=== PATIENT | male | born 1935 | race Caucasian/White ===

== ENCOUNTER 2020-07-23 15:00 | Inpatient (IN) | payer OTHER ==
[2020-07-23] MEDS ORDERED: DEXTROSE 5% IN WATER 100 ML with AMIODARONE 150 MG IV STA ×2 (15:13→15:47)
[2020-07-23] MEDS ORDERED: SODIUM CHLORIDE 0.9% 1,000 ML IV STA (15:17)
--- NOTE | 2020-07-23 15:20 | ED ---
General Adult HPI - General Chief complaint: Arrhythmia/Palpitations Stated complaint: Arrhythmia Time Seen by Provider: 07/23/20 15:05 Source: patient, EMS, RN notes reviewed Mode of arrival: EMS Limitations: no limitations - History of Present Illness Initial comments: Patient is a pleasant 85-year-old male presenting to the emergency department with concern for arrhythmia. Patient was seen at [facility] however was a new patient there and they have no information on him. Patient states he feels fine and has no complaint. Patient is unclear why he went to the office today. He denies any chest pain or dyspnea. No palpitations. Patient not feel weak and fatigued. Patient is unclear. History of similar symptoms previously. Patient reportedly is on Coreg and Xarelto. - Related Data Home Medications Medication Instructions Recorded Confirmed Carvedilol [Coreg] 25 mg PO AC-BID 07/23/20 07/23/20 Rivaroxaban [Xarelto] 20 mg PO AC-SUPPER 07/23/20 07/23/20 Allergies Allergy/AdvReac Type Severity Reaction Status Date / Time Penicillins Allergy Unknown Verified 07/23/20 15:40 Childhood Review of Systems ROS Statement: Those systems with pertinent positive or pertinent negative responses have been documented in the HPI. ROS Other: All systems not noted in ROS Statement are negative. Constitutional: Denies: fever Eyes: Denies: eye pain ENT: Denies: ear pain Respiratory: Denies: cough, dyspnea Cardiovascular: Denies: chest pain, palpitations Endocrine: Denies: fatigue Gastrointestinal: Denies: abdominal pain Genitourinary: Denies: urgency Musculoskeletal: Denies: back pain Skin: Denies: rash Neurological: Denies: weakness Past Medical History Past Medical History: Diabetes Mellitus Additional Past Medical History / Comment(s): defibulator History of Any Multi-Drug Resistant Organisms: None Reported Past Surgical History: Appendectomy Past Psychological History: No Psychological Hx Reported Smoking Status: Never smoker Past Alcohol Use History: Rare Past Drug Use History: None Reported General Exam Limitations: no limitations General appearance: alert, in no apparent distress Head exam: Present: normocephalic Eye exam: Present: normal appearance Neck exam: Present: normal inspection Respiratory exam: Present: normal lung sounds bilaterally Cardiovascular Exam: Present: tachycardia Expanded Peripheral pulses: 2+: Radial (R), Radial (L), Dorsalis Pedis (R), Dorsalis Pedis (L) GI/Abdominal exam: Present: soft. Absent: tenderness Extremities exam: Present: normal inspection. 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 Blancas who agrees with plan 07/23/20 16:13 Heart rate 136. Patient stable. Nursing attempting to try to interrogate un known brand of device. 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 Case was also discussed with Dr. Alston who does recommend a dose of IV Lopressor. 07/23/20 17:26 Case also discussed with practitioner Leland, covering for Dr. Cohen, who will admit. EKG Findings - EKG Comments: EKG Findings:: Wide-complex tachycardia with a rate of 142. QRS 146. QT 350. QTC 538. Superior axis. Inferior Q waves. Appearance of right bundle-branch block. Nonspecific ST-T. Medical Decision Making - Medical Decision Making Patient reevaluated and still resting comfortably in bed without complaint. Heart rate 1:30. Blood pressure remains stable. Cardiology paged again for update. - Lab Data Result diagrams: 07/23/20 15:19 07/23/20 15:19 Lab Results 07/23/20 07/23/20 07/23/20 Range/Units 15:19 15:19 15:19 WBC 4.8 (3.8-10.6) k/uL RBC 4.13 L (4.30-5.90) m/uL Hgb 12.2 L (13.0-17.5) gm/dL Hct 36.3 L (39.0-53.0) % MCV 88.1 (80.0-100.0) fL MCH 29.4 (25.0-35.0) pg MCHC 33.4 (31.0-37.0) g/dL RDW 12.9 (11.5-15.5) % Plt Count 150 (150-450) k/uL MPV 7.7 Neutrophils % 69 % Lymphocytes % 21 % Monocytes % 6 % Eosinophils % 2 % Basophils % 1 % Neutrophils # 3.3 (1.3-7.7) k/uL Lymphocytes # 1.0 (1.0-4.8) k/uL Monocytes # 0.3 (0-1.0) k/uL Eosinophils # 0.1 (0-0.7) k/uL Basophils # 0.0 (0-0.2) k/uL PT 11.7 (9.0-12.0) sec INR 1.1 (<1.2) APTT 29.1 (22.0-30.0) sec Sodium 139 (137-145) mmol/L Potassium 4.5 (3.5-5.1) mmol/L Chloride 106 (98-107) mmol/L Carbon Dioxide 27 (22-30) mmol/L Anion Gap 6 mmol/L BUN 26 H (9-20) mg/dL Creatinine 1.06 (0.66-1.25) mg/dL Est GFR (CKD-EPI)AfAm 74 (>60 ml/min/1.73 sqM) Est GFR (CKD-EPI)NonAf 64 (>60 ml/min/1.73 sqM) Glucose 191 H (74-99) mg/dL Calcium 10.2 (8.4-10.2) mg/dL Magnesium 2.0 (1.6-2.3) mg/dL Total Bilirubin 0.8 (0.2-1.3) mg/dL AST 23 (17-59) U/L ALT 10 (4-49) U/L Alkaline Phosphatase 69 (38-126) U/L Creatine Kinase 54 L (55-170) U/L Troponin I (0.000-0.034) ng/mL Total Protein 7.0 (6.3-8.2) g/dL Albumin 4.0 (3.5-5.0) g/dL TSH 3.170 (0.465-4.680) mIU/L Free T4 1.44 (0.78-2.19) ng/dL Free T3 pg/mL 3.4 (2.8-5.3) pg/ml 07/23/20 Range/Units 15:19 WBC (3.8-10.6) k/uL RBC (4.30-5.90) m/uL Hgb (13.0-17.5) gm/dL Hct (39.0-53.0) % MCV (80.0-100.0) fL MCH (25.0-35.0) pg MCHC (31.0-37.0) g/dL RDW (11.5-15.5) % Plt Count (150-450) k/uL MPV Neutrophils % % Lymphocytes % % Monocytes % % Eosinophils % % Basophils % % Neutrophils # (1.3-7.7) k/uL Lymphocytes # (1.0-4.8) k/uL Monocytes # (0-1.0) k/uL Eosinophils # (0-0.7) k/uL Basophils # (0-0.2) k/uL PT (9.0-12.0) sec INR (<1.2) APTT (22.0-30.0) sec Sodium (137-145) mmol/L Potassium (3.5-5.1) mmol/L Chloride (98-107) mmol/L Carbon Dioxide (22-30) mmol/L Anion Gap mmol/L BUN (9-20) mg/dL Creatinine (0.66-1.25) mg/dL Est GFR (CKD-EPI)AfAm (>60 ml/min/1.73 sqM) Est GFR (CKD-EPI)NonAf (>60 ml/min/1.73 sqM) Glucose (74-99) mg/dL Calcium (8.4-10.2) mg/dL Magnesium (1.6-2.3) mg/dL Total Bilirubin (0.2-1.3) mg/dL AST (17-59) U/L ALT (4-49) U/L Alkaline Phosphatase (38-126) U/L Creatine Kinase (55-170) U/L Troponin I 0.013 (0.000-0.034) ng/mL Total Protein (6.3-8.2) g/dL Albumin (3.5-5.0) g/dL TSH (0.465-4.680) mIU/L Free T4 (0.78-2.19) ng/dL Free T3 pg/mL (2.8-5.3) pg/ml - Radiology Data Radiology results: image reviewed (Chest x-ray shows cardiac megaly. No edema or effusion. Previous sternotomy and cardiac device present.) Critical Care Time Critical Care Time: Yes Total Critical Care Time: 33 Disposition Clinical Impression: Wide-complex tachycardia Disposition: ADMITTED IP TO THIS HOSP Is patient prescribed a controlled substance at d/c from ED?: No Referrals: [facility],Clinic [Primary Care Provider] - 1-2 days Decision Time: 17:28
[2020-07-23 15:26] LABS: Basophils % (A) 1 %; Eosinophils # (A) 0.1 k/uL (0-0.7); Eosinophils % (A) 2 %; HCT 36.3 % (39.0-53.0); HGB 12.2 gm/dL (13.0-17.5); Lymphocytes % (A) 21 %; MCH 29.4 pg (25.0-35.0); MCHC 33.4 g/dL (31.0-37.0); MCV 88.1 fL (80.0-100.0); Mean Platelet Volume 7.7; Monocytes # (A) 0.3 k/uL (0-1.0); Monocytes % (A) 6 %; Neutrophils # (A) 3.3 k/uL (1.3-7.7); Neutrophils % (A) 69 %; Platelet Count 150 k/uL (150-450); RBC 4.13 m/uL (4.30-5.90); RDW 12.9 % (11.5-15.5); WBC 4.8 k/uL (3.8-10.6)
[2020-07-23 15:36] LABS: INR 1.1 (<1.2); Partial Thromboplastin Time 29.1 sec (22.0-30.0); Prothrombin Time 11.7 sec (9.0-12.0)
[2020-07-23 15:44] LABS: Calcium 10.2 mg/dL (8.4-10.2); Potassium 4.5 mmol/L (3.5-5.1); Total Bilirubin 0.8 mg/dL (0.2-1.3)
--- NOTE | 2020-07-23 15:57 | XR ---
EXAMINATION TYPE: XR chest 2V DATE OF EXAM: 07/23/2020 COMPARISON: 02/08/2013 HISTORY: 85-year-old male dysrhythmia and chest pain TECHNIQUE: AP and lateral views FINDINGS: Left anterior chest wall ICD generator with right ventricular lead. Median sternotomy wires and post- CABG clips in the mediastinum. Heart moderately enlarged. Rightward patient rotation alters the jewel l cardiomediastinal contours. No kristie consolidation or sizable effusion seen. Old healed left-sided rib fracture deformities. IMPRESSION: Moderate cardiomegaly. No kristie pulmonary edema or sizable effusion seen.
[2020-07-23 16:00] LABS: T4, Free (Free Thyroxine) 1.44 ng/dL (0.78-2.19)
[2020-07-23] MEDS ORDERED: AMIODARONE 360 MG in DEXTROSE 5% IN WATER 200 ML IV ONE ×2 (16:13)
[2020-07-23] MEDS ORDERED: METOPROLOL TARTRATE 5 MG/5 ML VIAL IVP STA (17:27)
[2020-07-23] MEDS ORDERED: NALOXONE 0.4 MG/ML 1 ML VIAL IV PRN (17:28)
--- NOTE | 2020-07-24 09:12 | P.HPIM ---
History of Present Illness This is a pleasant 85 years old male with past medical history of dementia, diabetes mellitus, he has history of permanent pacemaker placement, and defibrillator. Patient follow-up with Dr. Serrano in [place]. He was recently moved to [place] and lastly, he went to his the office for a checkup today and in the EKG his heart rate was recent. Pulse rate at his PCPs office was 148 and patient was advised to come to the hospital via ambulance. Patient himself is poor historian and cannot remember much except that he went to the doctor office. However he denies chest pain or dyspnea, no coughing, no dizziness. No change in bowel or urine habits. No fever. No other complaints On admission patient is tachycardic 142 blood pressure 113/90. Currently his heart rate is 126 and blood pressure 133/77, he is afebrile Labs including CBC, INR, BMP, liver enzymes are unremarkable. Troponins 3 are negative with 0.013, 0.013 and 0.017. TSH is normal at 3.1, free T4 is normal at 1.4 and a free T3 is normal at 3.4 EKG showing wide QRS tachycardia with right bundle branch block and QTC of 538 Chest x-ray: No acute process per radiologist On admission patient was started on amiodarone drip and given IV metoprolol 5 mg once,. Cardiology team were consulted from emergency room At home he wasn't Coreg 25 mg twice daily and Zestril to 20 mg daily at bedtime Review of Systems CONSTITUTIONAL: No fever, no malaise, no fatigue. HEENT: No recent visual problems or hearing problems. Denied any sore throat. CARDIOVASCULAR: No orthopnea, PND, no palpitations, no syncope. PULMONARY: No shortness of breath, no cough, no hemoptysis. GASTROINTESTINAL: No diarrhea, no nausea, no vomiting, no abdominal pain. Normoactive bowel sounds. NEUROLOGICAL: No headaches, no weakness, no numbness. HEMATOLOGICAL: Denies any bleeding or petechiae. GENITOURINARY: Denies any burning micturition, frequency, or urgency. MUSCULOSKELETAL/RHEUMATOLOGICAL: Denies any joint pain, swelling, or any muscle pain. ENDOCRINE: Denies any polyuria or polydipsia. Past Medical History Past Medical History: Dementia, Diabetes Mellitus Additional Past Medical History / Comment(s): Permenant pacemaker History of Any Multi-Drug Resistant Organisms: None Reported Past Surgical History: Appendectomy, Pacemaker Type of Cardiac Device: Permanent Pacemaker Device Placement Date:: 2009 Past Psychological History: No Psychological Hx Reported Smoking Status: Never smoker Past Alcohol Use History: Rare Past Drug Use History: None Reported - Past Family History Father History Unknown: Yes Mother History Unknown: Yes Brother(s) History Unknown: Yes Sister(s) History Unknown: Yes Medications and Allergies Home Medications Medication Instructions Recorded Confirmed Type Carvedilol [Coreg] 25 mg PO AC-BID 07/23/20 07/23/20 History Rivaroxaban [Xarelto] 20 mg PO AC-SUPPER 07/23/20 07/23/20 History Allergies Allergy/AdvReac Type Severity Reaction Status Date / Time Penicillins Allergy Unknown Verified 07/23/20 15:40 Childhood Physical Exam Vitals: Vital Signs Temp Pulse Pulse Resp BP BP Pulse Ox 07/24/20 04:53 98.1 F 126 H 16 133/77 98 07/24/20 04:51 126 H 16 07/23/20 23:46 97 F L 126 H 16 113/77 98 07/23/20 20:30 97.9 F 129 H 16 117/79 98 07/23/20 19:45 98.0 F 131 H 18 101/64 100 07/23/20 19:00 133 H 18 107/64 98 07/23/20 18:12 133 H 18 112/77 98 07/23/20 17:30 134 H 18 110/84 100 07/23/20 17:00 132 H 18 115/90 100 07/23/20 16:45 133 H 18 104/76 100 07/23/20 16:14 129 H 18 104/80 100 07/23/20 16:05 131 H 18 113/83 100 07/23/20 15:55 137 H 18 124/69 100 07/23/20 15:36 140 H 18 112/81 100 07/23/20 15:14 142 H 07/23/20 15:01 97.9 F 142 H 18 113/90 100 Intake and Output 07/23/20 07/24/20 07/24/20 22:59 06:59 14:59 Output Total 100 Balance -100 Output: Urine 100 Other: # Voids 0 Weight 83.915 kg 59 kg GENERAL: The patient is alert and oriented x3, not in any acute distress. Well developed, well nourished. HEENT: Pupils are round and equally reacting to light. EOMI. No scleral icterus. No conjunctival pallor. Normocephalic, atraumatic. No pharyngeal erythema. No thyromegaly. CARDIOVASCULAR: S1 and S2 present. No murmurs, rubs, or gallops. PULMONARY: Chest is clear to auscultation, no wheezing or crackles. ABDOMEN: Soft, nontender, nondistended, normoactive bowel sounds. No palpable organomegaly. MUSCULOSKELETAL: No joint swelling or deformity. EXTREMITIES: No cyanosis, clubbing, or pedal edema. NEUROLOGICAL: Gross neurological examination did not reveal any focal deficits. SKIN: No rashes. No petechiae Results CBC & Chem 7: 07/23/20 15:19 07/23/20 15:19 Labs: Abnormal Lab Results - Last 24 Hours (Table) 07/23/20 07/23/20 Range/Units 15:19 15:19 RBC 4.13 L (4.30-5.90) m/uL Hgb 12.2 L (13.0-17.5) gm/dL Hct 36.3 L (39.0-53.0) % BUN 26 H (9-20) mg/dL Glucose 191 H (74-99) mg/dL Creatine Kinase 54 L (55-170) U/L Thrombosis Risk Factor Assmnt - Choose All That Apply Each Factor Represents 1 point: Obesity (BMI >25) Each Risk Factor Represents 3 Points: Age 75 years or older Thrombosis Risk Factor Assessment Total Risk Factor Score: 4 Thrombosis Risk Factor Assessment Level: Moderate Risk Assessment and Plan Assessment: Wide complex tachycardia Prolonged QTC of 538 Dementia Diabetes mellitus Plan: This is a pleasant 85 years old male who presents with wide complex tachycardia. cardiology team on the case. Continue with amiodarone and beta rosaura as per cardiology team recommendation. Labs and medication were reviewed.. Continue same treatment. Continue with symptomatic treatment. Resume home medication. Monitor lytes and vitals. DVT and GI prophylaxis. Further recommendations depends on the clinical course of the patient DVT prophylaxis:Was on Xarelto GI Prophylaxis: Pepcid PT/OT: Pending Prognosis is guarded
[2020-07-24] MEDS: carvediloL 12.5 MG TAB PO SCH ×2 (09:42→17:08)
[2020-07-24] MEDS ORDERED: ADENOSINE 3 MG/ML 2 ML VIAL IVP STA ×2 (09:46)
[2020-07-24] MEDS: AMIODARONE 300 MG in DEXTROSE 5% IN WATER 250 ML IV SCH ×4 (10:10→10:14)
--- NOTE | 2020-07-24 11:59 | P.CRDCN ---
History of Present Illness Consult date: 07/24/20 History of present illness: CHIEF COMPLAINT: Wide-complex tachycardia HISTORY OF PRESENT ILLNESS: This is a 85-year old male with a past medical history significant for diabetes mellitus, dementia, and previous AICD insertion. Patient does not follow with a baker pie. We have been asked to see the patient in consultation for wide-complex tachycardia. Patient examined this morning at the bedside. Patient is unable to provide any medical history or provide any details of why he came to the hospital. This provider spoke with the patient's and also patient's [id number] in attempts to gain additional medical information. Patient's [id number], Marii, states she took the patient to the [facility] yesterday for a routine checkup. She states the patient was seen at a doctor's office in October of this year in [place] and was told he needed his pacemaker battery changed. An EKG was completed yesterday at the [facility] which revealed tachycardia with heart rate in the 140s and he was instructed to come to the hospital for further evaluation. Patient is prescribed Xarelto on an outpatient basis. The patient is unable to tell me why he is prescribed Xarelto and either is his family members. The patient denies chest pain or pressure. He denies shortness of breath. He denies palpitations. Denies dizziness or lightheadedness. DIAGNOSTICS: EKG reveals wide complex tachycardia. Heart rate 142. Right bundle-branch block. Chest xray moderate cardiomegaly. No kristie pulmonary edema or sizable effusion. Laboratory data: WBC 4.8. Hemoglobin 12.2. Pletal 150. Sodium 139. Potassium 4.5. BUN 26. Creatinine 1.06. Magnesium 2.0. Troponin negative 3. TSH 3.170. Current home cardiac medications include Xarelto 20 mg daily, Coreg 25 mg twice a day REVIEW OF SYSTEMS: At the time of my exam: CONSTITUTIONAL: Denies fever or chills. HEENT: Denies blurred vision, vision changes, or eye pain. Denies hemoptysis CARDIOVASCULAR: Denies chest pain, orthopnea, PND or palpitations RESPIRATORY: No shortness of breath. GASTROINTESTINAL: Denies abdominal pain. Denies nausea or vomiting. HEMATOLOGIC: Denies bleeding disorders. GENITOURINARY: Denies any blood in urine. SKIN: Denies pruitis. Denies rash. PHYSICAL EXAM: VITAL SIGNS: Reviewed. GENERAL: Well-developed in no acute distress. HEENT: Head is normocephalic. Pupils are equal, round. Sclerae anicteric. Mucous membranes of the mouth are moist. Neck supple. No JVD or thyromegaly LUNGS: Respirations even and unlabored. Lungs essentially clear to auscultation bilaterally. HEART: Tachycardic. Regular rate and rhythm. S1 and S2 heard. ABDOMEN: Soft. Nondistended. Nontender. EXTREMITIES: Normal range of motion. No clubbing or cyanosis. Peripheral pulses intact. No lower extremity edema NEUROLOGIC: Awake and alert. Oriented x 2. ASSESSMENT: Wide complex tachycardia, suspect venticular tachycardia History of AICD History of CABG: X-ray reveals median sternotomy wires and post CABG clips in the mediastinum On long-term anticoagulation with Xarelto, reason unknown Diabetes mellitus, type II Dementia PLAN: Obtain 2-D echo to assess cardiac structure and function Patient given 12mg rapid IVP at the bedside per Dr. Blancas. No change in telemetry tracings. Suspect sustained ventricular tachycardia. Continue IV amio Resume Coreg Hold Xarelto Dr. Blancas would like to overdrive pacer in attempts to convert patients rhythm. Spoke with device rep who will come out this afternoon and will call Dr. Blancas upon her arrival Further recommendations pending patient course Nurse practitioner note has been reviewed by physician. Signing provider agrees with the documented findings, assessment, and plan of care. Past Medical History Past Medical History: Dementia, Diabetes Mellitus Additional Past Medical History / Comment(s): Permenant pacemaker History of Any Multi-Drug Resistant Organisms: None Reported Past Surgical History: Appendectomy, Pacemaker Type of Cardiac Device: Permanent Pacemaker Device Placement Date:: 2009 Past Psychological History: No Psychological Hx Reported Smoking Status: Never smoker Past Alcohol Use History: Rare Past Drug Use History: None Reported - Past Family History Father History Unknown: Yes Mother History Unknown: Yes Brother(s) History Unknown: Yes Sister(s) History Unknown: Yes Medications and Allergies Home Medications Medication Instructions Recorded Confirmed Type Carvedilol [Coreg] 25 mg PO AC-BID 07/23/20 07/23/20 History Rivaroxaban [Xarelto] 20 mg PO AC-SUPPER 07/23/20 07/23/20 History Allergies Allergy/AdvReac Type Severity Reaction Status Date / Time Penicillins Allergy Unknown Verified 07/23/20 15:40 Childhood Physical Exam Vitals: Vital Signs Temp Pulse Pulse Resp BP BP Pulse Ox 07/24/20 09:40 97.4 F L 127 H 16 123/89 99 07/24/20 04:53 98.1 F 126 H 16 133/77 98 07/24/20 04:51 126 H 16 07/23/20 23:46 97 F L 126 H 16 113/77 98 07/23/20 20:30 97.9 F 129 H 16 117/79 98 07/23/20 19:45 98.0 F 131 H 18 101/64 100 07/23/20 19:00 133 H 18 107/64 98 07/23/20 18:12 133 H 18 112/77 98 07/23/20 17:30 134 H 18 110/84 100 07/23/20 17:00 132 H 18 115/90 100 07/23/20 16:45 133 H 18 104/76 100 07/23/20 16:14 129 H 18 104/80 100 07/23/20 16:05 131 H 18 113/83 100 07/23/20 15:55 137 H 18 124/69 100 07/23/20 15:36 140 H 18 112/81 100 07/23/20 15:14 142 H 07/23/20 15:01 97.9 F 142 H 18 113/90 100 Intake and Output 07/23/20 07/24/20 07/24/20 22:59 06:59 14:59 Output Total 100 Balance -100 Output: Urine 100 Other: # Voids 0 Weight 83.915 kg 59 kg Results 07/23/20 15:19 07/23/20 15:19 Cardiac Enzymes 07/23/20 07/23/20 07/23/20 Range/Units 15:19 15:19 19:01 AST 23 (17-59) U/L Troponin I 0.013 0.013 (0.000-0.034) ng/mL 07/23/20 Range/Units 20:37 AST (17-59) U/L Troponin I 0.017 (0.000-0.034) ng/mL Coagulation 07/23/20 Range/Units 15:19 PT 11.7 (9.0-12.0) sec APTT 29.1 (22.0-30.0) sec CBC 07/23/20 Range/Units 15:19 WBC 4.8 (3.8-10.6) k/uL RBC 4.13 L (4.30-5.90) m/uL Hgb 12.2 L (13.0-17.5) gm/dL Hct 36.3 L (39.0-53.0) % Plt Count 150 (150-450) k/uL Comprehensive Metabolic Panel 07/23/20 Range/Units 15:19 Sodium 139 (137-145) mmol/L Potassium 4.5 (3.5-5.1) mmol/L Chloride 106 (98-107) mmol/L Carbon Dioxide 27 (22-30) mmol/L BUN 26 H (9-20) mg/dL Creatinine 1.06 (0.66-1.25) mg/dL Glucose 191 H (74-99) mg/dL Calcium 10.2 (8.4-10.2) mg/dL AST 23 (17-59) U/L ALT 10 (4-49) U/L Alkaline Phosphatase 69 (38-126) U/L Total Protein 7.0 (6.3-8.2) g/dL Albumin 4.0 (3.5-5.0) g/dL Current Medications Generic Name Dose Route Start Last Admin Trade Name Freq PRN Reason Stop Dose Admin Carvedilol 25 mg 07/24/20 09:45 07/24/20 09:42 Carvedilol 12.5 Mg Tab PO 25 mg AC-BID JULIAN Administration Amiodarone HCl 300 mg/ 250 mls @ 25 mls/hr 07/23/20 22:00 07/24/20 10:14 Dextrose/Water IV 07/24/20 15:59 Not Given .Q10H JULIAN Protocol 0.5 MG/MIN Naloxone HCl 0.2 mg 07/23/20 17:28 Naloxone 0.4 Mg/Ml 1 Ml Vial IV Q2M PRN Opioid Reversal Intake and Output 07/23/20 07/24/20 07/24/20 22:59 06:59 14:59 Output Total 100 Balance -100 Output: Urine 100 Other: # Voids 0 Weight 83.915 kg 59 kg 07/23/20 15:19 07/23/20 15:19
--- NOTE | 2020-07-24 12:46 | P.PN ---
Subjective Progress Note Date: 07/24/20 Cardiology Progress note: Patient remains in VT with HR approximately 130. [facility] [employer] rep came and delivered ATP at HR 150-180 without any change of VT. VT monitoring zone decreased to 125 bpm with VT therapy ATP/ shock reserved for 190. Discussed with power of thais Valentine who is sister in law. Family unsure of medical history however does admit to history of CABG upon further questioning. Discussed recommendations for ASHKAN/ cardioversion given VT and ASHKAN to assess for an LANDY thrombus given unclear reason of why he has been on anticoagulation. Mrs Valentine agreeable to procedure and risks and benefits discussed in detail. We will arrange ASHKAN/ CV. Elier Blancas, Objective - Vital Signs Vital signs: Vital Signs Temp 98.4 F 07/24/20 12:00 Pulse 122 H 07/24/20 12:00 Resp 18 07/24/20 12:00 BP 106/70 07/24/20 12:00 Pulse Ox 98 07/24/20 12:00 Intake & Output 07/23/20 07/24/20 07/24/20 18:59 06:59 18:59 Output Total 100 Balance -100 Weight 83.915 kg 59 kg Output: Urine 100 Other: # Voids 0 - Labs CBC & Chem 7: 07/23/20 15:19 07/23/20 15:19 Labs: Abnormal Lab Results - Last 24 Hours (Table) 07/23/20 07/23/20 Range/Units 15:19 15:19 RBC 4.13 L (4.30-5.90) m/uL Hgb 12.2 L (13.0-17.5) gm/dL Hct 36.3 L (39.0-53.0) % BUN 26 H (9-20) mg/dL Glucose 191 H (74-99) mg/dL Creatine Kinase 54 L (55-170) U/L
[2020-07-24 14:52] VITALS: BMI 22.7
[2020-07-24] MEDS ORDERED: PROPOFOL 10 MG/ML 20 ML VIAL IV ONE (15:58)
[2020-07-24] MEDS ORDERED: IV FLUID CONTINUATION 1,000 ML IV ONE (16:06)
[2020-07-24] MEDS ORDERED: BENZOCAINE SPRAY 1 CAN TOPICAL ONE (16:16)
--- NOTE | 2020-07-24 17:09 | P.TEE ---
Indications for Procedure(s): Ventricular Tachycardia, history of Afib and need for cardioversion Description of Procedure(s): Procedure performed: Transesophageal Echocardiogram with color flow doppler, pulsed wave doppler and continuous wave doppler, cardioversion Sedation: Sedation was provided by anesthesiology. See anesthesiology note for full documentation. Complications: none Indications: Ventricular tachycardia, apparent history of A. fib on anticoagulation with need for cardioversion History: Patient is a pleasant 85-year-old male with history of dementia, apparent history of coronary artery disease and CABG, AICD with apparent cardiomyopathy who presented secondary to tachycardia and was found to be in sustained ventricular tachycardia with heart rates in the 140s, decreased mildly to 130s on amiodarone. Patient had been fairly stable and therefore ATP through his AICD was attempted however unsuccessful. Therefore decision was made for cardioversion and given questionable history of A. fib and on anticoagulation however unclear if patient has been taking, recommendation was for a ASHKAN and cardioversion PROCEDURE: After the risks, benefits and alternatives of the above mentioned procedure was explained in detail with the patient's power of insurance attorney, informed consent was obtained. Patient was brought to the lab in a fasting state. Patient was given sedation by anesthesiology. The throat was sprayed with Hurricane to anesthetize the throat. A lubricated Omni probe was then introduced into the esophagus and stomach and multiple views were obtained. 2D echo with color flow doppler, pulsed wave doppler and continuous wave doppler was utilized. Agitated saline bubbles were injected to assess for any intra- atrial shunt. The probe was then removed. There is no left atrial appendage thrombus identified and therefore patient was cardioverted with 200 J with resultant sinus rhythm. Patient tolerated the procedure well. Patient was transferred to the post procedure area in stable and satisfactory condition. FINDINGS: 1. The aortic valve is tricuspid and mildly calcified without significant aortic stenosis and mild aortic regurgitation. 2. The mitral valve appears be normal with mild mitral regurgitation. 3. Tricuspid valve appears to be normal with an AICD lead noted. There is severe almost wide open tricuspid regurgitation. 4. The interatrial septum is intact. No evidence of PFO by color or bubbles. 5. Left atrial appendage is free of clot. 6. The left ventricle is mildly dilated with ejection fraction approximately 20-25% and global hypokinesis. 7. Moderately dilated left atrium and right atrium. 8. No pericardial effusion noted. 9. Large eustachian valve noted in the right atrium.
[2020-07-24] MEDS ORDERED: AMIODARONE 300 MG in DEXTROSE 5% IN WATER 250 ML IV SCH ×2 (18:00)
[2020-07-24] MEDS ORDERED: DEXTROSE 5% IN WATER 100 ML with AMIODARONE 150 MG IV ONE (20:45)
[2020-07-24] MEDS: AMIODARONE 360 MG in DEXTROSE 5% IN WATER 200 ML IV SCH ×2 (20:49)
[2020-07-25] MEDS: AMIODARONE 360 MG in DEXTROSE 5% IN WATER 200 ML IV SCH ×8 (04:20→23:02)
[2020-07-25] MEDS: carvediloL 12.5 MG TAB PO SCH ×2 (06:26→16:59)
[2020-07-25] MEDS: HEPARIN SODIUM,PORCINE 5,000 UNIT/ML 1 ML VIAL SQ SCH ×2 (08:18→20:42)
[2020-07-25] MEDS ORDERED: FAMOTIDINE 20 MG/2 ML VIAL IV SCH (09:00)
[2020-07-25] MEDS ORDERED: AMIODARONE 200 MG TAB PO SCH (09:00)
--- NOTE | 2020-07-25 10:56 | ECHOF ---
Referral Reason:LV function MEASUREMENTS -------- HEIGHT: 177.8 cm WEIGHT: 59.0 kg BP: IVSd: 1.4 cm (0.6 - 1.1) LVIDd: 5.5 cm (3.9 - 5.3) LVPWd: 1.3 cm (0.6 - 1.1) EDV(Teich): 150 ml IVSs: 1.7 cm LVIDs: 4.2 cm LVPWs: 1.6 cm %IVS Thck: 26 % ESV(Teich): 79 ml EF(Teich): 48 % %FS: 24 % SV(Teich): 72 ml LA Diam: 4.7 cm (2.7 - 3.8) RVIDd: 3.7 cm (< 3.3) IVC: 26.78 mm LALs A4C: 6.4 cm LAAs A4C: 19.8 cm LAESV A-L A4C: 52 ml LAESV MOD A4C: 50 ml LALs A2C: 5.7 cm LAAs A2C: 18.3 cm LAESV A-L A2C: 50 ml LAESV MOD A2C: 49 ml LAESV(A-L): 54 ml LAESV Index (A-L): 31.29 ml/m HR_2Ch_Q: 127 bpm HR_4Ch_Q: 127 bpm LVVED_2Ch_Q: 69 ml LVVED_4Ch_Q: 71 ml LVVES_2Ch_Q: 60 ml LVVES_4Ch_Q: 52 ml LVEF_2Ch_Q: 13 % LVEF_4Ch_Q: 26 % LVSV_2Ch_Q: 9 ml LVSV_4Ch_Q: 19 ml LVCO_2Ch_Q: 1.2 l/min LVCO_4Ch_Q: 2.4 l/min LVLs_2Ch_Q: 8.5 cm LVLs_4Ch_Q: 6.6 cm LVLd_2Ch_Q: 8.0 cm LVLd_4Ch_Q: 7.1 cm Ao Diam: 3.8 cm (2.0 - 3.7) AV Cusp: 1.7 cm (1.5 - 2.6) EPSS: 1.8 cm MV DecT: 73 ms MV PHT: 23 ms MVA By PHT: 9.6 cm AV Vmax: 0.95 m/s AV maxP.59 mmHg AR Vmax: 3.61 m/s AR maxP.22 mmHg AR PHT: 430 ms AR Dec Time: 1484 ms AR Dec [place]: 2.4 m/s TR Vmax: 2.83 m/s TR maxP.00 mmHg RAP: 15.00 mmHg RVSP: 47.00 mmHg MV EF SLOPE: 208.59 mm/s (70 - 150) MV EXCURSION: 18.74 mm (> 18.000) FINDINGS -------- AICD This was a technically adequate study. The left ventricular size is normal. There is moderate concentric left ventricular hypertrophy. O verall left ventricular systolic function is severely impaired with, an EF between 25 - 30 %. Apica l anterior LV wall motion is hypokinetic. Apical lateral LV wall motion is hypokinetic. Apical inferior LV wall motion is hypokinetic. Apical septum LV wall motion is hypokinetic. The right ventricle is mildly enlarged. LA is midly dilated 29-33ml/m2. The right atrium is normal in size. Interatrial and interventricular septum intact. There is mild aortic valve sclerosis. The mitral valve leaflets are mildly thickened. Mild mitral annular calcification present. Mild-t o-moderate mitral regurgitation is present. Moderate to severe tricuspid regurgitation present. There is moderate pulmonary hypertension. The right ventricular systolic pressure, as measured by Doppler, is 47.00mmHg. Trace/mild (physiologic) pulmonic regurgitation. The aortic root size is normal. The inferior vena cava is dilated with no significant inspiratory collapse which is consistent estima ling right atrial pressure of >15 mmHg. There is no pericardial effusion. CONCLUSIONS -------- 1. AICD 2. The left ventricular size is normal. 3. There is moderate concentric left ventricular hypertrophy. 4. Overall left ventricular systolic function is severely impaired with, an EF between 25 - 30 %. 5. Apical anterior LV wall motion is hypokinetic. 6. Apical lateral LV wall motion is hypokinetic. 7. Apical inferior LV wall motion is hypokinetic. 8. Apical septum LV wall motion is hypokinetic. 9. The right ventricle is mildly enlarged. 10. LA is midly dilated 29-33ml/m2. 11. The mitral valve leaflets are mildly thickened. 12. Mild mitral annular calcification present. 13. Ckhe-bw-vugjujvh mitral regurgitation is present. 14. Moderate to severe tricuspid regurgitation present. 15. There is moderate pulmonary hypertension. 16. The right ventricular systolic pressure, as measured by Doppler, is 47.00mmHg. 17. Trace/mild (physiologic) pulmonic regurgitation. 18. The inferior vena cava is dilated with no significant inspiratory collapse which is consistent es timated right atrial pressure of >15 mmHg. 19. There is no pericardial effusion. FLEXOGRAPHIC PRINTING MACHINIST: Lakshmi Pierce RDCS
--- NOTE | 2020-07-25 13:28 | P.PN ---
Subjective Progress Note Date: 07/25/20 CHIEF COMPLAINT: Wide-complex tachycardia HISTORY OF PRESENT ILLNESS: 07/24/2020 This is a 85-year old male with a past medical history significant for diabetes mellitus, dementia, and previous AICD insertion. 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 We have been asked to see the patient in consultation for wide- complex tachycardia. Patient examined this morning at the bedside. Patient is unable to provide any medical history or provide any details of why he came to the hospital. This provider spoke with the patient's and also patient's [id number] in attempts to gain additional medical information. Patient's [id number], Marii, states she took the patient to the [place] [facility] yesterday for a routine checkup. She states the patient was seen at a doctor's office in October of this year in [place] and was told he needed his pacemaker battery changed. An EKG was completed yesterday at the [place] clinic which revealed tachycardia with heart rate in the 140s and he was instructed to come to the hospital for further evaluation. Patient is prescribed Xarelto on an outpatient basis. The patient is unable to tell me why he is prescribed Xarelto and either is his family members. The patient denies chest pain or pressure. He denies shortness of breath. He denies palpitations. Denies dizziness or lightheaded ness. 07/25/2020 Patient examined this morning at the bedside. Patient underwent ASHKAN with cardioversion yesterday. He did convert to sinus rhythm. However a few hours later the patient went back into ventricular tachycardia. Patient remains in ventricular tachycardia this morning with a rate in the 120s. His amiodarone has been increased to 1mg/min. Echocardiogram reveals ejection fraction 25-30%, hypokinesis of LV wall, mild to moderate mitral regurgitation, moderate -to-severe tricuspid regurgitation and moderate pulmonary hypertension. PHYSICAL EXAM: VITAL SIGNS: Reviewed. GENERAL: Well-developed in no acute distress. HEENT: Head is normocephalic. Pupils are equal, round. Sclerae anicteric. Mucous membranes of the mouth are moist. Neck supple. No JVD or thyromegaly LUNGS: Respirations even and unlabored. Lungs essentially clear to auscultation bilaterally. HEART: Tachycardic. Regular rate and rhythm. S1 and S2 heard. Systolic mur mur. ABDOMEN: Soft. Nondistended. Nontender. EXTREMITIES: Normal range of motion. No clubbing or cyanosis. Peripheral pulses intact. No lower extremity edema NEUROLOGIC: Awake and alert. Oriented x 2. ASSESSMENT: Venticular tachycardia, status post cardioversion History of AICD History of CABG On long-term anticoagulation with Xarelto, reason unknown Diabetes mellitus, type II Dementia PLAN: Continue to hold Xarelto Continue amio drip Dr. Blancas spoke with Dr. Diaz who will evaluate the patient. Await recommendations Nurse practitioner note has been reviewed by physician. Signing provider agrees with the documented findings, assessment, and plan of care. Objective - Vital Signs Vital signs: Vital Signs Temp 97.3 F L 07/25/20 12:00 Pulse 114 H 07/25/20 12:00 Resp 18 07/25/20 12:00 BP 89/52 07/25/20 12:00 Pulse Ox 99 07/25/20 12:00 Intake & Output 07/24/20 07/25/20 07/25/20 18:59 06:59 18:59 Intake Total 505 680 402.665 Output Total 100 50 200 Balance 405 630 202.665 Weight 71.894 kg 53 kg Intake: IV 25 Intake, IV Titration 200 166.665 Amount Amiodarone 360 mg In 200 166.665 Dextrose 5% in Water 200 ml @ 1 MG/MIN 33.333 mls/ hr IV [facility] Rx#: [id number] Oral 480 480 236 Output: Urine 100 50 200 Other: # Voids 1 2 # Bowel Movements 1 1 - Labs CBC & Chem 7: 07/23/20 15:19 07/23/20 15:19
--- NOTE | 2020-07-25 17:57 | P.PN ---
Subjective This is a pleasant 85 years old male with past medical history of dementia, diabetes mellitus, he has history of permanent pacemaker placement, and defibrillator. Patient follow-up with Dr. Serrano in [place]. He was recently moved to [place] and lastly, he went to his the office for a checkup today and in the EKG his heart rate was recent. Pulse rate at his PCPs office was 148 and patient was advised to come to the hospital via ambulance. Patient himself is poor historian and cannot remember much except that he went to the doctor office . However he denies chest pain or dyspnea, no coughing, no dizziness. No change in bowel or urine habits. No fever. No other complaints On admission patient is tachycardic 142 blood pressure 113/90. Currently his heart rate is 126 and blood pressure 133/77, he is afebrile Labs including CBC, INR, BMP, liver enzymes are unremarkable. Troponins 3 are negative with 0.013, 0.013 and 0.017. TSH is normal at 3.1, free T4 is normal at 1.4 and a free T3 is normal at 3.4 EKG showing wide QRS tachycardia with right bundle branch block and QTC of 538 Chest x-ray: No acute process per radiologist On admission patient was started on amiodarone drip and given IV metoprolol 5 mg once,. Cardiology team were consulted from emergency room At home he wasn't Coreg 25 mg twice daily and Zestril to 20 mg daily at bedtime 07/26/2020 Patient is sitting in bed, looks comfortable. Asymptomatic. Fully awake and oriented. Patient underwent cardioversion yesterday for his V. tach, however his rhythm been performed to ventricular tachycardia last night after the cardioversion. Heart rate is 110,Blood pressure 110/73, patient is afebrile. Echocardiogram yesterday showing ejection fraction of 25-30% with wall motion hypokinesia. [id number] mitral regurgitation, moderate to severe tricuspid regurgitation, moderate pulmonary hypertension Cartilage team are pending Dr. Hamlin to evaluate the patient further Objective - Vital Signs Vital signs: Vital Signs Temp 97.8 F 07/25/20 08:18 Pulse 114 H 07/25/20 08:18 Resp 18 07/25/20 08:18 BP 95/65 07/25/20 08:18 Pulse Ox 99 07/25/20 08:18 Intake & Output 07/24/20 07/25/20 07/25/20 18:59 06:59 18:59 Intake Total 505 680 166.665 Output Total 100 50 Balance 405 630 166.665 Weight 71.894 kg 53 kg Intake: IV 25 Intake, IV Titration 200 166.665 Amount Amiodarone 360 mg In 200 166.665 Dextrose 5% in Water 200 ml @ 1 MG/MIN 33.333 mls/ hr IV .[facility] Rx#: [id number] Oral 480 480 Output: Urine 100 50 Other: # Voids 1 # Bowel Movements 1 - Exam GENERAL: The patient is alert and oriented x3, not in any acute distress. Well developed, well nourished. HEENT: Pupils are round and equally reacting to light. EOMI. No scleral icterus. No conjunctival pallor. Normocephalic, atraumatic. No pharyngeal erythema. No t hyromegaly. CARDIOVASCULAR: S1 and S2 present. No murmurs, rubs, or gallops. PULMONARY: Chest is clear to auscultation, no wheezing or crackles. ABDOMEN: Soft, nontender, nondistended, normoactive bowel sounds. No palpable organomegaly. MUSCULOSKELETAL: No joint swelling or deformity. EXTREMITIES: No cyanosis, clubbing, or pedal edema. NEUROLOGICAL: Gross neurological examination did not reveal any focal deficits. SKIN: No rashes. no petechiae. - Labs CBC & Chem 7: 07/23/20 15:19 07/23/20 15:19 Assessment and Plan Assessment: Ventricular tachycardia, status post cardioversion Prolonged QTC of 538 Dementia Diabetes mellitus Plan: This is a pleasant 85 years old male who presents with wide complex tachycardia. cardiology team on the case. Continue with amiodarone and beta rosaura as per cardiology team recommendation. Continue to hold anticoagulation as per card iologist. Labs and medication were reviewed.. Continue same treatment. Continue with symptomatic treatment. Resume home medication. Monitor lytes and vitals. DVT and GI prophylaxis. Further recommendations depends on the clinical course of the patient DVT prophylaxis:Was on Xarelto , currently on hold. Continue with subcutaneous heparin GI Prophylaxis: Pepcid PT/OT: Recommended home health care versus subacute free Prognosis is guarded
[2020-07-25] MEDS ORDERED: LORazepam 2 MG/ML INJ IV PRN ×3 (18:19)
[2020-07-25 19:59] LABS: Appearance,Urine Cloudy (Clear); Bacteria,Urine Occasional /hpf; Bilirubin,Urine Negative (Negative); Blood,Urine Small (Negative); Budding Yeast,Urine Few /hpf; Color,Urine Yellow; Glucose,Urine (UA) 2+ (Negative); Hyaline Casts,Urine 18 /lpf (0-2); Ketones,Urine Negative (Negative); Leukocyte Esterase,Urine Negative (Negative); Mucus,Urine Occasional /hpf; Nitrite,Urine Negative (Negative); PH, Urine 5.5 (5.0-8.0); Protein,Urine 2+ (Negative); RBC,Urine 14 /hpf (0-5); Specific Gravity,Urine 1.027 (1.001-1.035); Squamous Epithelial Cell,Urine <1 /hpf (0-4); WBC,Urine 3 /hpf (0-5)
[2020-07-25] MEDS ORDERED: ACETAMINOPHEN TAB 325 MG TAB PO PRN (22:19)
[2020-07-26] MEDS: AMIODARONE 360 MG in DEXTROSE 5% IN WATER 200 ML IV SCH ×8 (06:38→23:48)
[2020-07-26] MEDS: carvediloL 12.5 MG TAB PO SCH ×2 (06:38→17:17)
[2020-07-26] MEDS: FAMOTIDINE 20 MG TAB PO SCH (08:37)
[2020-07-26] MEDS: HEPARIN SODIUM,PORCINE 5,000 UNIT/ML 1 ML VIAL SQ SCH ×2 (08:37→20:38)
[2020-07-26] MEDS: THIAMINE 100 MG TAB PO SCH (08:37)
[2020-07-26 10:58] LABS: Calcium 9.1 mg/dL (8.4-10.2); Potassium 4.7 mmol/L (3.5-5.1)
--- NOTE | 2020-07-26 13:05 | P.PN ---
Subjective Progress Note Date: 07/26/20 CHIEF COMPLAINT: Wide-complex tachycardia HISTORY OF PRESENT ILLNESS: 07/24/2020 This is a 85-year old male with a past medical history significant for diabetes mellitus, dementia, and previous AICD insertion. 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 We have been asked to see the patient in consultation for wide- complex tachycardia. Patient examined this morning at the bedside. Patient is unable to provide any medical history or provide any details of why he came to the hospital. This provider spoke with the patient's and also patient's [id number] in attempts to gain additional medical information. Patient's [id number], Marii, states she took the patient to the [place] clinic yesterday for a routine checkup. She states the patient was seen at a doctor's office in October of this year in [place] and was told he needed his pacemaker battery changed. An EKG was completed yesterday at the [place] clinic which revealed tachycardia with heart rate in the 140s and he was instructed to come to the hospital for further evaluation. Patient is prescribed Xarelto on an outpatient basis. The patient is unable to tell me why he is prescribed Xarelto and either is his family members. The patient denies chest pain or pressure. He denies shortness of breath. He denies palpitations. Denies dizziness or lightheaded ness. 07/25/2020 Patient examined this morning at the bedside. Patient underwent ASHKAN with cardioversion yesterday. He did convert to sinus rhythm. However a few hours later the patient went back into ventricular tachycardia. Patient remains in ventricular tachycardia this morning with a rate in the 120s. His amiodarone has been increased to 1mg/min. Echocardiogram reveals ejection fraction 25-30%, hypokinesis of LV wall, mild to moderate mitral regurgitation, moderate -to-severe tricuspid regurgitation and moderate pulmonary hypertension. 07/26/2020 Patient examined this morning at the bedside. He denies chest pain or pressure. He denies shortness of breath. He is maintained on an amio drip at 1mg/min. Patient is maintaining a paced rhythm on the monitor. PHYSICAL EXAM: VITAL SIGNS: Reviewed. GENERAL: Well-developed in no acute distress. HEENT: Head is normocephalic. Pupils are equal, round. Sclerae anicteric. Mucous membranes of the mouth are moist. Neck supple. No JVD or thyromegaly LUNGS: Respirations even and unlabored. Lungs essentially clear to auscultation bilaterally. HEART: Regular rate and rhythm. S1 and S2 heard. Systolic murmur. ABDOMEN: Soft. Nondistended. Nontender. EXTREMITIES: Normal range of motion. No clubbing or cyanosis. Peripheral pulses intact. No lower extremity edema NEUROLOGIC: Awake and alert. Oriented x 2. ASSESSMENT: Venticular tachycardia, status post cardioversion History of AICD History of CABG On long-term anticoagulation with Xarelto, reason unknown Diabetes mellitus, type II Dementia PLAN: Continue to hold Xarelto Continue amio drip Await evaluation by Dr. Diaz Further recommendations pending patient course Nurse practitioner note has been reviewed by physician. Signing provider agrees with the documented findings, assessment, and plan of care. Objective - Vital Signs Vital signs: Vital Signs Temp 97.6 F 07/26/20 11:48 Pulse 63 07/26/20 11:48 Resp 20 07/26/20 11:48 BP 96/59 07/26/20 11:48 Pulse Ox 98 07/26/20 11:48 Intake & Output 07/25/20 07/26/20 07/26/20 18:59 06:59 18:59 Intake Total 842.665 500 200 Output Total 200 Balance 642.665 500 200 Weight 52.2 kg Intake: Intake, IV Titration 366.665 400 200 Amount Amiodarone 360 mg In 366.665 400 200 Dextrose 5% in Water 200 ml @ 1 MG/MIN 33.333 mls/ hr IV .Q6H [facility] Rx#: [id number] Oral 476 100 0 Output: Urine 200 Other: # Voids 2 1 # Bowel Movements 1 - Labs CBC & Chem 7: 07/23/20 15:19 07/26/20 08:37 Labs: Abnormal Lab Results - Last 24 Hours (Table) 07/25/20 07/26/20 Range/Units 18:36 08:37 Sodium 132 L (137-145) mmol/L Carbon Dioxide 19 L (22-30) mmol/L BUN 48 H (9-20) mg/dL Creatinine 1.54 H (0.66-1.25) mg/dL Glucose 172 H (74-99) mg/dL Urine Protein 2+ H (Negative) Urine Glucose (UA) 2+ H (Negative) Urine Blood Small H (Negative) Urine RBC 14 H (0-5) /hpf Urine Bacteria Occasional H (None) /hpf Hyaline Casts 18 H (0-2) /lpf Urine Mucus Occasional H (None) /hpf Urine Yeast (Budding) Few H (None) /hpf
--- NOTE | 2020-07-26 17:57 | P.PN ---
Subjective This is a pleasant 85 years old male with past medical history of dementia, diabetes mellitus, he has history of permanent pacemaker placement, and defibrillator. Patient follow-up with Dr. Serrano in [place]. He was recently moved to [place] and lastly, he went to his the office for a checkup today and in the EKG his heart rate was recent. Pulse rate at his PCPs office was 148 and patient was advised to come to the hospital via ambulance. Patient himself is poor historian and cannot remember much except that he went to the doctor office . However he denies chest pain or dyspnea, no coughing, no dizziness. No change in bowel or urine habits. No fever. No other complaints On admission patient is tachycardic 142 blood pressure 113/90. Currently his heart rate is 126 and blood pressure 133/77, he is afebrile Labs including CBC, INR, BMP, liver enzymes are unremarkable. Troponins 3 are negative with 0.013, 0.013 and 0.017. TSH is normal at 3.1, free T4 is normal at 1.4 and a free T3 is normal at 3.4 EKG showing wide QRS tachycardia with right bundle branch block and QTC of 538 Chest x-ray: No acute process per radiologist On admission patient was started on amiodarone drip and given IV metoprolol 5 mg once,. Cardiology team were consulted from emergency room At home he wasn't Coreg 25 mg twice daily and Zestril to 20 mg daily at bedtime 07/25/2020 Patient is sitting in bed, looks comfortable. Asymptomatic. Fully awake and oriented. Patient underwent cardioversion yesterday for his V. tach, however his rhythm been performed to ventricular tachycardia last night after the cardioversion. Heart rate is 110,Blood pressure 110/73, patient is afebrile. Echocardiogram yesterday showing ejection fraction of 25-30% with wall motion hypokinesia. [id number] mitral regurgitation, moderate to severe tricuspid regurgitation, moderate pulmonary hypertension Cartilage team are pending Dr. Hamlin to evaluate the patient further 07/26/2020 Patient still asymptomatic. Heart rate today is 60-63 this morning. Rest of Vitas looks stable with temperature 97.7, respiratory 20, blood pressure 92/61 which is a stable and he is saturating 97% on room air Patient still on amiodarone drip and cardiology on the case. We'll discharge once cleared by cardiology service Objective - Vital Signs Vital signs: Vital Signs Temp 97.7 F 07/26/20 08:35 Pulse 61 07/26/20 08:35 Resp 20 07/26/20 08:35 BP 92/61 07/26/20 08:35 Pulse Ox 97 07/26/20 08:35 Intake & Output 07/25/20 07/26/20 07/26/20 18:59 06:59 18:59 Intake Total 842.665 500 0 Output Total 200 Balance 642.665 500 0 Weight 52.2 kg Intake: Intake, IV Titration 366.665 400 Amount Amiodarone 360 mg In 366.665 400 Dextrose 5% in Water 200 ml @ 1 MG/MIN 33.333 mls/ hr IV .Q6H [facility] Rx#: [id number] Oral 476 100 0 Output: Urine 200 Other: # Voids 2 1 # Bowel Movements 1 - Exam GENERAL: The patient is alert and oriented x3, not in any acute distress. Well developed, well nourished. HEENT: Pupils are round and equally reacting to light. EOMI. No scleral icterus. No conjunctival pallor. Normocephalic, atraumatic. No pharyngeal erythema. No thyromegaly. CARDIOVASCULAR: S1 and S2 present. No murmurs, rubs, or gallops. PULMONARY: Chest is clear to auscultation, no wheezing or crackles. ABDOMEN: Soft, nontender, nondistended, normoactive bowel sounds. No palpable organomegaly. MUSCULOSKELETAL: No joint swelling or deformity. EXTREMITIES: No cyanosis, clubbing, or pedal edema. NEUROLOGICAL: Gross neurological examination did not reveal any focal deficits. SKIN: No rashes. no petechiae. - Labs CBC & Chem 7: 07/23/20 15:19 07/26/20 08:37 Labs: Abnormal Lab Results - Last 24 Hours (Table) 07/25/20 Range/Units 18:36 Urine Protein 2+ H (Negative) Urine Glucose (UA) 2+ H (Negative) Urine Blood Small H (Negative) Urine RBC 14 H (0-5) /hpf Urine Bacteria Occasional H (None) /hpf Hyaline Casts 18 H (0-2) /lpf Urine Mucus Occasional H (None) /hpf Urine Yeast (Budding) Few H (None) /hpf Assessment and Plan Assessment: Ventricular tachycardia, status post cardioversion Prolonged QTC of 538 Dementia Diabetes mellitus Plan: This is a pleasant 85 years old male who presents with wide complex tachycardia. cardiology team on the case. Continue with amiodarone and beta rosaura as per cardiology team recommendation. Continue to hold anticoagulation as per day care attendant. Labs and medication were reviewed.. Continue same treatment. Continue with symptomatic treatment. Resume home medication. Monitor lytes and vitals. DVT and GI prophylaxis. Further recommendations depends on the clinical course of the patient DVT prophylaxis:Was on Xarelto , currently on hold. Continue with subcutaneous heparin GI Prophylaxis: Pepcid PT/OT: Recommended home health care versus subacute free Prognosis is guarded
[2020-07-27] MEDS: AMIODARONE 360 MG in DEXTROSE 5% IN WATER 200 ML IV SCH ×4 (06:10→08:37)
[2020-07-27] MEDS: carvediloL 12.5 MG TAB PO SCH ×2 (06:41→17:29)
[2020-07-27] MEDS: THIAMINE 100 MG TAB PO SCH (08:37)
[2020-07-27] MEDS: FAMOTIDINE 20 MG TAB PO SCH (08:37)
[2020-07-27] MEDS: HEPARIN SODIUM,PORCINE 5,000 UNIT/ML 1 ML VIAL SQ SCH (08:37)
[2020-07-27] MEDS: AMIODARONE 200 MG TAB PO SCH ×2 (09:52→21:45)
[2020-07-27 10:20] LABS: Calcium 9.1 mg/dL (8.4-10.2); Potassium 4.3 mmol/L (3.5-5.1)
--- NOTE | 2020-07-27 12:53 | P.PN ---
Subjective This is a pleasant 85 years old male with past medical history of dementia, diabetes mellitus, he has history of permanent pacemaker placement, and defibrillator. Patient follow-up with Dr. Serrano in [place]. He was recently moved to [place] and lastly, he went to his the office for a checkup today and in the EKG his heart rate was recent. Pulse rate at his PCPs office was 148 and patient was advised to come to the hospital via ambulance. Patient himself is poor historian and cannot remember much except that he went to the doctor office . However he denies chest pain or dyspnea, no coughing, no dizziness. No change in bowel or urine habits. No fever. No other complaints On admission patient is tachycardic 142 blood pressure 113/90. Currently his heart rate is 126 and blood pressure 133/77, he is afebrile Labs including CBC, INR, BMP, liver enzymes are unremarkable. Troponins 3 are negative with 0.013, 0.013 and 0.017. TSH is normal at 3.1, free T4 is normal at 1.4 and a free T3 is normal at 3.4 EKG showing wide QRS tachycardia with right bundle branch block and QTC of 538 Chest x-ray: No acute process per radiologist On admission patient was started on amiodarone drip and given IV metoprolol 5 mg once,. Cardiology team were consulted from emergency room At home he wasn't Coreg 25 mg twice daily and Zestril to 20 mg daily at bedtime 07/25/2020 Patient is sitting in bed, looks comfortable. Asymptomatic. Fully awake and oriented. Patient underwent cardioversion yesterday for his V. tach, however his rhythm been performed to ventricular tachycardia last night after the cardioversion. Heart rate is 110,Blood pressure 110/73, patient is afebrile. Echocardiogram yesterday showing ejection fraction of 25-30% with wall motion hypokinesia. [id number] mitral regurgitation, moderate to severe tricuspid regurgitation, moderate pulmonary hypertension Cartilage team are pending Dr. Hamlin to evaluate the patient further 07/26/2020 Patient still asymptomatic. Heart rate today is 60-63 this morning. Rest of Vitas looks stable with temperature 97.7, respiratory 20, blood pressure 92/61 which is a stable and he is saturating 97% on room air Patient still on amiodarone drip and cardiology on the case. We'll discharge once cleared by cardiology service 07/27/2020 Patient has been blind in bed with no distress or no complaint. He did not walk much over the last few days so we will order PT and OT evaluation especially he supposed to be on Cipro. On discharge and cardiology cleared him. However cardiology will like to be monitored for another 24 hours after switching his IV amiodarone to oral pills. Physical still is a still on hold, we will discuss with cartilage team went to restarted Patient will need to follow-up with cardiology service upon discharge Objective - Vital Signs Vital signs: Vital Signs Temp 97.6 F 07/27/20 11:43 Pulse 67 07/27/20 11:43 Resp 18 07/27/20 12:45 BP 110/73 07/27/20 11:43 Pulse Ox 97 07/27/20 11:43 Intake & Output 07/26/20 07/27/20 07/27/20 18:59 06:59 18:59 Intake Total 348.887 400 206.666 Output Total 100 Balance 348.887 300 206.666 Weight 49 kg Intake: Intake, IV Titration 348.887 400 81.666 Amount Amiodarone 360 mg In 348.887 400 81.666 Dextrose 5% in Water 200 ml @ 1 MG/MIN 33.333 mls/ hr IV .Q6H [facility] Rx#: [id number] Oral 0 125 Output: Urine 100 Other: # Voids 2 - Exam GENERAL: The patient is alert and oriented x3, not in any acute distress. Well developed, well nourished. HEENT: Pupils are round and equally reacting to light. EOMI. No scleral icterus. No conjunctival pallor. Normocephalic, atraumatic. No pharyngeal erythema. No thyromegaly. CARDIOVASCULAR: S1 and S2 present. No murmurs, rubs, or gallops. PULMONARY: Chest is clear to auscultation, no wheezing or crackles. ABDOMEN: Soft, nontender, nondistended, normoactive bowel sounds. No palpable organomegaly. MUSCULOSKELETAL: No joint swelling or deformity. EXTREMITIES: No cyanosis, clubbing, or pedal edema. NEUROLOGICAL: Gross neurological examination did not reveal any focal deficits. SKIN: No rashes. no petechiae. - Labs CBC & Chem 7: 07/23/20 15:19 07/27/20 09:47 Labs: Abnormal Lab Results - Last 24 Hours (Table) 07/27/20 Range/Units 09:47 Sodium 131 L (137-145) mmol/L Carbon Dioxide 19 L (22-30) mmol/L BUN 46 H (9-20) mg/dL Creatinine 1.33 H (0.66-1.25) mg/dL Glucose 192 H (74-99) mg/dL Assessment and Plan Assessment: Ventricular tachycardia, status post cardioversion Prolonged QTC of 538 Dementia Diabetes mellitus Plan: This is a pleasant 85 years old male who presents with wide complex tachycardia. cardiology team on the case. Continue with amiodarone and beta rosaura as per cardiology team recommendation. Continue to hold anticoagulation as per biology department chair. Labs and medication were reviewed.. Continue same treatment. Continue with s ymptomatic treatment. Resume home medication. Monitor lytes and vitals. DVT and GI prophylaxis. Further recommendations depends on the clinical course of the patient DVT prophylaxis:Was on Xarelto , currently on hold. Continue with subcutaneous heparin GI Prophylaxis: Pepcid PT/OT: Recommended home health care versus subacute free Prognosis is guarded
--- NOTE | 2020-07-27 13:11 | P.PN ---
Subjective Progress Note Date: 07/27/20 CHIEF COMPLAINT: Wide-complex tachycardia HISTORY OF PRESENT ILLNESS: Patient examined at the bedside. He denies chest pain or pressure. Denies short of breath. He is maintaining on an amiodarone drip at 1mg/min. Patient is maintaining a paced rhythm on the monitor. PHYSICAL EXAM: VITAL SIGNS: Reviewed. GENERAL: Well-developed in no acute distress. HEENT: Head is normocephalic. Pupils are equal, round. Sclerae anicteric. Mucous membranes of the mouth are moist. Neck supple. No JVD or thyromegaly LUNGS: Respirations even and unlabored. Lungs essentially clear to auscultation bilaterally. HEART: Regular rate and rhythm. S1 and S2 heard. Systolic murmur. ABDOMEN: Soft. Nondistended. Nontender. EXTREMITIES: Normal range of motion. No clubbing or cyanosis. Peripheral pulses intact. No lower extremity edema NEUROLOGIC: Awake and alert. Oriented x 2. ASSESSMENT: Venticular tachycardia, status post cardioversion History of AICD History of CABG On long-term anticoagulation with Xarelto, reason unknown Diabetes mellitus, type II Dementia PLAN: Discontinue amiodarone drip Begin amiodarone 400 mg by mouth BID Resume Xarelto Anticipate discharge home tomorrow Nurse practitioner note has been reviewed by physician. Signing provider agrees with the documented findings, assessment, and plan of care. Objective - Vital Signs Vital signs: Vital Signs Temp 97.6 F 07/27/20 11:43 Pulse 67 07/27/20 11:43 Resp 18 07/27/20 12:45 BP 110/73 07/27/20 11:43 Pulse Ox 97 07/27/20 11:43 Intake & Output 07/26/20 07/27/20 07/27/20 18:59 06:59 18:59 Intake Total 348.887 400 206.666 Output Total 100 Balance 348.887 300 206.666 Weight 49 kg Intake: Intake, IV Titration 348.887 400 81.666 Amount Amiodarone 360 mg In 348.887 400 81.666 Dextrose 5% in Water 200 ml @ 1 MG/MIN 33.333 mls/ hr IV .Q6H [facility] Rx#: [id number] Oral 0 125 Output: Urine 100 Other: # Voids 2 - Labs CBC & Chem 7: 07/23/20 15:19 07/27/20 09:47 Labs: Abnormal Lab Results - Last 24 Hours (Table) 07/27/20 Range/Units 09:47 Sodium 131 L (137-145) mmol/L Carbon Dioxide 19 L (22-30) mmol/L BUN 46 H (9-20) mg/dL Creatinine 1.33 H (0.66-1.25) mg/dL Glucose 192 H (74-99) mg/dL
[2020-07-27] MEDS: RIVAROXABAN 20 MG TAB PO SCH (17:29)
[2020-07-28] MEDS: carvediloL 12.5 MG TAB PO SCH ×2 (06:59→17:42)
[2020-07-28] MEDS: FAMOTIDINE 20 MG TAB PO SCH (10:08)
[2020-07-28] MEDS: AMIODARONE 200 MG TAB PO SCH ×2 (10:08→17:42)
[2020-07-28] MEDS: THIAMINE 100 MG TAB PO SCH (10:09)
--- NOTE | 2020-07-28 11:32 | CDI ---
Documentation Clarification Form Date: 07/28/2020 11:30:22 AM From: Carmen Turcios RN, CCDS Admit Date: 07/23/2020 05:29:00 PM Patient Name: Mich Hudson Visit Number: [id number] ATTENTION: The Clinical Documentation Specialists (CDI) and [facility] Coding Staff appreciate your assistance in clarifying documentation. Please respond to the clarification below the line at the bottom and electronically sign. The CDI & [facility] Coding staff will review the response and follow-up if needed. Please note: Queries are made part of the Legal Health Record. If you have any questions, please contact the author of this message via ITS. Dr. Mahnoey E Sheet Increasing BUN and creatinine have been noted. Please provide clinical significance. History/Risk Factors: DM2, CABG, AICD Patients baseline BUN/CR/GFR: no previous labs at [facility] Clinical Indicators: 07/23-07/27 Current BUN: 26/48/46 Cr:1.06/1.54/1.33 GFR: 64/40/48 Treatment: 0.9%NS @ 50 cc/hr x 1L Lab Monitoring In order to capture the severity of condition, please clarify if the condition signifies: Acute renal failure, Please specify etiology (if known): Cortical Necrosis Medullary Necrosis Tubular Necrosis Acute kidney injury Acute on chronic renal failure CKD Stage 1 GFR >90 CKD Stage 2 GFR 60-89 CKD Stage 3 GFR 30-59 Chronic renal failure/Chronic Kidney disease (CKD) please stage (if known): CKD Stage 1 GFR >90 CKD Stage 2 GFR 60-89 CKD Stage 3 GFR 30-59 Other, please specify Unable to determine (Last Revision: November 2017) Mild acute kidney injury, improving preoperative discharge. Mostly prerenal improved with oral hydration MTDD
[2020-07-28 11:41] VITALS: RESP 20; TEMP 97.8
--- NOTE | 2020-07-28 14:06 | P.PN ---
Subjective Progress Note Date: 07/28/20 CHIEF COMPLAINT: Wide-complex tachycardia HISTORY OF PRESENT ILLNESS: Patient examined at the bedside. He denies chest pain or pressure. Denies short of breath. Patient is maintaining a paced rhythm on the monitor. Vital signs are stable. PHYSICAL EXAM: VITAL SIGNS: Reviewed. GENERAL: Well-developed in no acute distress. HEENT: Head is normocephalic. Pupils are equal, round. Sclerae anicteric. Mucous membranes of the mouth are moist. Neck supple. No JVD or thyromegaly LUNGS: Respirations even and unlabored. Lungs essentially clear to auscultation bilaterally. HEART: Regular rate and rhythm. S1 and S2 heard. Systolic murmur. ABDOMEN: Soft. Nondistended. Nontender. EXTREMITIES: Normal range of motion. No clubbing or cyanosis. Peripheral pulses intact. No lower extremity edema NEUROLOGIC: Awake and alert. Oriented x 2. ASSESSMENT: Venticular tachycardia, status post cardioversion History of AICD History of CABG On long-term anticoagulation with Xarelto, reason unknown Diabetes mellitus, type II Dementia PLAN: Continue current cardiac medications Patient stable for discharge from a cardiac perspective Patient to follow-up outpatient with Dr. Blancas Nurse practitioner note has been reviewed by physician. Signing provider agrees with the documented findings, assessment, and plan of care. Objective - Vital Signs Vital signs: Vital Signs Temp 97.8 F 07/28/20 08:00 Pulse 65 07/28/20 08:00 Resp 20 07/28/20 08:00 BP 117/42 07/28/20 08:00 Pulse Ox 98 07/28/20 08:00 Intake & Output 07/27/20 07/28/20 07/28/20 18:59 06:59 18:59 Intake Total 553.666 240 Output Total 250 200 300 Balance 303.666 -200 -60 Weight 46 kg Intake: Intake, IV Titration 81.666 Amount Amiodarone 360 mg In 81.666 Dextrose 5% in Water 200 ml @ 1 MG/MIN 33.333 mls/ hr IV .Q6H [facility] Rx#: [id number] Oral 472 240 Output: Urine 250 200 300 Other: # Voids 1 1 - Labs CBC & Chem 7: 07/23/20 15:19 07/27/20 09:47
[2020-07-28 14:12] VITALS: BP 125/67; PULSE 63
[2020-07-28] MEDS: RIVAROXABAN 20 MG TAB PO SCH (17:42)
== END 2020-07-28 18:18 | disposition home health service (06) | DRG 309 ==
LOC: EC 15:00 → 3SCARD 17:29
PROVIDERS: ADMIT Hospitalist; ATTEND Hospitalist
PROC: 5A2204Z Restoration of Cardiac Rhythm, Single (ICD-10-PCS; principal; 2020-07-24 11:10)
PROC: B246ZZ4 Ultrasonography of Right and Left Heart, Transesophageal (ICD-10-PCS; principal; 2020-07-24 11:10)
DX: I47.2 Ventricular tachycardia (principal); N17.9 Acute kidney failure, unspecified; I27.20 Pulmonary hypertension, unspecified; I08.1 Rheumatic disorders of both mitral and tricuspid valves; I45.10 Unspecified right bundle-branch block; E11.9 Type 2 diabetes mellitus without complications; F03.90 Unspecified dementia, unspecified severity, without behavioral disturbance, psychotic disturbance, mood disturbance, and anxiety; H54.7 Unspecified visual loss; Z79.899 Other long term (current) drug therapy; Z79.01 Long term (current) use of anticoagulants; Z95.810 Presence of automatic (implantable) cardiac defibrillator; Z95.1 Presence of aortocoronary bypass graft; Z90.49 Acquired absence of other specified parts of digestive tract; Z88.0 Allergy status to penicillin
CPT/HCPCS: 36415; 71046; 80048; 80053; 81001; 82550; 83735; 84439; 84443; 84481; 84484; 85025; 85610; 85730; 92960; 93005; 93306; 93312; 93320; 93325; 96361; 96365; 96366; 96375; 99291

== ENCOUNTER → 2020-09-17 | Outpatient (CLI) | payer OTHER ==
[2020-09-17 16:45] LABS: HCT 38.8 % (39.0-53.0); HGB 12.7 gm/dL (13.0-17.5); MCHC 32.8 g/dL (31.0-37.0); MCV 88.6 fL (80.0-100.0); Platelet Count 232 k/uL (150-450); RBC 4.38 m/uL (4.30-5.90); RDW 13.9 % (11.5-15.5); WBC 8.4 k/uL (3.8-10.6)
[2020-09-17 16:58] LABS: Potassium 5.1 mmol/L (3.5-5.1)
== END | disposition home or self-care (01) ==
LOC: LABPAT 16:07
PROVIDERS: ATTEND Internal Medicine Clinical Cardiac Electrophysiology
DX: Z01.818 Encounter for other preprocedural examination (principal); T82.111A Breakdown (mechanical) of cardiac pulse generator (battery), initial encounter
CPT/HCPCS: 80051; 82565; 84520; 85027

== ENCOUNTER → 2020-09-18 | Day surgery (SDC) | payer MEDICARE, OTHER ==
[~2020-09-18] MED LIST: IOPAMIDOL-370 50ML BTL MISCELLANE ONE; SODIUM CHLORIDE 0.9% 1,000 ML IV SCH; SODIUM CHLORIDE 0.9% 500 ML 500 ML IV ONE
[2020-09-18 14:23] VITALS: RESP 16; TEMP 98.1
--- NOTE | 2020-09-18 14:49 | P.PCN ---
Preoperative Diagnosis: Left upper extremity venogram 15 mL of IV dye injected into the left arm Patent left axillary and subclavian venous system Plan Proceed with upgrade to a biventricular system Patient has a single chamber ICD lead
[2020-09-18 15:04] VITALS: BP 145/73; PULSE 67
== END ==
LOC: CATHEP 14:00
PROVIDERS: ATTEND Internal Medicine Clinical Cardiac Electrophysiology
DX: I87.1 Compression of vein (principal)
CPT/HCPCS: 36005; 75820; Q9967

== ENCOUNTER 2020-11-12 07:01 | Day surgery (SDC) | payer MEDICARE ==
[2020-11-07 15:38] VITALS: BMI 23.6
[~2020-11-12 07:01] MED LIST changes: +CLINDAMYCIN 600 MG in SODIUM CHLORIDE 0.9% 250 ML IRRIGATION PRN; +CLINDAMYCIN 900 MG in DEXTROSE 5% IN WATER 50 ML IVPB PRN; +HYDROmorphone 0.5 MG/0.5 ML SYRINGE IVP PRN; -IOPAMIDOL-370 50ML BTL MISCELLANE ONE; +LACTATED RINGERS 1,000 ML IV SCH; +MIDAZOLAM 2 MG/2 ML VIAL IV PRN; +ONDANSETRON 4 MG/2 ML VIAL IVP ONE; -SODIUM CHLORIDE 0.9% 500 ML 500 ML IV ONE
[2020-11-12 07:39] VITALS: RESP 18; TEMP 97.7
[2020-11-12 07:45] LABS: Glucose,Whole Blood 141 mg/dL (75-99)
[2020-11-12 07:46] LABS: HGB 12.3 gm/dL (13.0-17.5); MCH 29.5 pg (25.0-35.0); MCHC 34.1 g/dL (31.0-37.0); MCV 86.4 fL (80.0-100.0); Mean Platelet Volume 6.7; Platelet Count 182 k/uL (150-450); RBC 4.17 m/uL (4.30-5.90); RDW 13.8 % (11.5-15.5); WBC 4.4 k/uL (3.8-10.6)
[2020-11-12 08:23] LABS: Calcium 10.4 mg/dL (8.4-10.2); Potassium 4.6 mmol/L (3.5-5.1); Total Protein 7.3 g/dL (6.3-8.2)
[2020-11-12] MEDS ORDERED: PHENYLEPHRINE-0.9% NACL SYG 1,000 MCG/10 ML SYRINGE ONE (08:24)
[2020-11-12] MEDS ORDERED: fentaNYL (PF) 50 MCG/ML 2 ML AMP ONE (08:24)
[2020-11-12] MEDS ORDERED: VANCOMYCIN 1,000 MG VIAL ONE (08:24)
[2020-11-12] MEDS ORDERED: PROPOFOL 10 MG/ML 20 ML VIAL IV ONE (08:24)
[2020-11-12] MEDS ORDERED: SODIUM CHLORIDE 0.9% 500 ML 450 ML IV ONE (08:31)
[2020-11-12 08:40] LABS: T4, Free (Free Thyroxine) 0.9 ng/dL (0.78-2.19)
[2020-11-12] MEDS ORDERED: LIDOCAINE 1% INJ 10MG/ML (20 ML MDV) ONE ×3 (08:51→09:11)
[2020-11-12] MEDS ORDERED: LIDOCAINE 1% INJ 10MG/ML (20 ML MDV) SQ ONE ×4 (08:58→09:39)
[2020-11-12] MEDS ORDERED: LACTATED RINGERS 1,000 ML IV ONE (09:20)
[2020-11-12] MEDS ORDERED: IOPAMIDOL-250 50ML BTL IV ONE (10:30)
[2020-11-12] MEDS ORDERED: ACETAMINOPHEN TAB 325 MG TAB PO PRN (11:34)
--- NOTE | 2020-11-12 11:42 | P.EPCON ---
Electrophysiology Consult - EP Consult Electrophysiology Consult: 85-year-old male patient with severe ischemic cardio myopathy and sustained ventricular tachycardia status post ICD shock He is a single chamber ICD was implanted in [place] by Dr. Johnston He has complete heart block, 100% RV pacing, underlying persistent atrial fibrillation, on xarelto Class II CHF, CAD, status post coronary artery bypass grafting, old [place] He is brought in for an upgrade to a biventricular ICD with implantation of a new atrial lead and LV lead His RV pacing threshold is high and his above 4 volts at 1 ms Procedure Patient underwent successful upgrade to a biventricular ICD with implantation of a new atrial lead and LV lead LV lead placed in the lateral vein with excellent thresholds no diaphragmatic stimulation, [employer] New subfascial pocket, near-total capsulectomy of laterally positioned ICD pocket TVP was placed and removed at the end of the procedure DFT at a low 10 J At the same time he cardioverted to sinus rhythm The device is programmed to DDDR mode at 60-130 bpm MADIT RIT programming for tachycardia therapies AV delay 150/180 ms LV only pacing since RV capture threshold is high Patient received IV antibiotics including IV vancomycin and will be discharged home the same day Discharge medications Reduce amiodarone to 200 mg by mouth daily Reduce losartan to 25 mg by mouth daily Add Aldactone 25 mg by mouth daily Continue carvedilol 25 mg twice daily Continue Xarelto 20 mg by mouth daily
--- NOTE | 2020-11-12 13:08 | CE ---
CARDIAC ELECTROPHYSIOLOGY REPORT This is an 85-year-old male patient who has 100% RV pacing on account of severe bradycardia and complete heart block who has severe ischemic cardiomyopathy, EF 25%, congestive heart failure, history of sustained VT, status post ICD shock, currently on amiodarone. He has known coronary artery disease status post coronary artery bypass grafting for an NC. EF 25%. He is medical treatment as well as on amiodarone. He has persistent atrial fibrillation. He has a single chamber ICD that was implanted in [place] many years back. The RV threshold was elevated. Device is at [facility]. Patient was brought to the EP lab in a fasting state for an upgrade to a biventricular ICD. First a TVP was placed from the right groin. Please see the note separately. Next the left pectoral area was prepped and draped as per protocol and 1% lidocaine was used for local anesthesia. An incision was made in the left pectoral area. The device was displaced superiorly and very laterally and so was the device pocket. The device was explanted from the pocket. A new subfascial pocket was made. The catheter was very calcified and near total capsulectomy was performed. Hemostasis was assured. The left axillary vein was accessed at 2 separate points under fluoroscopy and via appropriately-sized introducer sheaths 2 leads were positioned in the right heart. The atrial lead was a [employer], model #2088 TC, 52 cm in length and serial #[id number]. This was screwed in the right atrial appendage. The patient was in atrial tachycardia, but later he converted to sinus rhythm during DFT testing. P waves 1 mV, pacing impedance 440 ohms, pacing threshold 0.5 V at 0.5 milliseconds. The LV lead was positioned in the lateral vein. The coronary sinus was accessed. The lateral vein was subselected. The lead was placed over an angioplasty wire. Excellent threshold was noted at 0.5 V at 0.5 milliseconds and LV pacing. No diaphragmatic stimulation. This was a [employer] model #1458Q, 86 cm in length and serial #[id number]. The RV lead pacing impedance was 1575 ohms, pacing threshold 4.5 V at 1 millisecond. The sheaths were removed. The leads were secured to the underlying pectoralis muscle. The old generator was completely explanted and disconnected from the RV lead. The new generator was implanted. This was a [employer] model #[id number], serial #[id number]. The new generator was placed in subfascial pocket, secured to the underlying pectoralis muscle and the wound was closed in 3 layers and dressed per protocol. Please note that a new subfascial pocket was made more medially and inferior and caudally and secured more medially to prevent superior lateral displacement. The patient tolerated the procedure well without any acute complications. The venous sheath in the right groin and right femoral vein was removed at the end of the procedure after removing the temporary pacemaker lead. The patient received IV vancomycin through the procedure and clindamycin before it. DFT TESTING UNDER ANESTHESIA: A DC Fibber shock was used to induce ventricular fibrillation. This was adequately and appropriately detected at least sensitivity and successfully internally defibrillated with a 10-joule shock vector. Shock impedance 72 ohms. Charge time 1.9 seconds. No post shock noise. Simultaneously, the patient converted to sinus rhythm. The device was then programmed to DDDR mode 60-130 ppm with normal AV delay of 154/180 milliseconds. The tachy parameters were programmed according to the Madit-RIT program with appropriate antitachycardia pacing cardioversion defibrillation. RESULTS: Successful implantation of a new atrial lead and LV lead and a new biventricular ICD for management of congestive heart failure, 100% RV pacing on account of complete heart block with severe bradycardia. The patient tolerated the procedure well without any acute complications. DFT at 10 joules. He also converted to sinus rhythm during DFT. PLAN: Reduce amiodarone to 200 mg p.o. daily, add Aldactone and continue Xarelto and add Pravachol 10 mg p.o. daily. MMODL / IJN: [id number] /
--- NOTE | 2020-11-12 13:22 | XR ---
EXAMINATION TYPE: XR chest 1V portable DATE OF EXAM: 11/12/2020 COMPARISON: Chest x-ray July 23, 2020 HISTORY: Pacemaker placement. TECHNIQUE: Single AP portable frontal upright view of the chest is obtained. FINDINGS: Overlying sternal wires and mediastinal clips redemonstrated. Persistent cardiomegaly with pacemaker/defibrillator lead terminating in right ventricle. There are new leads terminating in expec ling location of the coronary sinus and right atrium. There are chronic parenchymal changes without newell spicious focal airspace opacity, pleural effusion, or pneumothorax redemonstrated bilaterally. Osseou s structures are demineralized. IMPRESSION: As above
[2020-11-12] MEDS ORDERED: ACETAMINOPHEN IV (For NPO) 1,000 MG in EMPTY BAG 1 BAG IVPB ONE (14:00)
[2020-11-12] MEDS ORDERED: CLINDAMYCIN 900 MG in DEXTROSE 5% IN WATER 50 ML IVPB SCH ×2 (15:00)
[2020-11-12 15:06] LABS: Hemoglobin A1C 7.9 % (4.0-6.0)
[2020-11-12 16:03] VITALS: PULSE 64
[2020-11-12 16:05] VITALS: BP 168/72
[2020-11-13] MEDS ORDERED: CLINDAMYCIN 900 MG in DEXTROSE 5% IN WATER 50 ML IVPB PRN ×2 (07:00)
[2020-11-13] MEDS ORDERED: CLINDAMYCIN 600 MG in SODIUM CHLORIDE 0.9% 250 ML IRRIGATION PRN (07:00)
== END 2020-11-12 16:41 | disposition home or self-care (01) ==
LOC: CATHEP 07:01
PROVIDERS: ATTEND Internal Medicine Clinical Cardiac Electrophysiology
DX: I42.9 Cardiomyopathy, unspecified (principal); I44.2 Atrioventricular block, complete; I25.10 Atherosclerotic heart disease of native coronary artery without angina pectoris; I50.22 Chronic systolic (congestive) heart failure; I47.2 Ventricular tachycardia; Z87.891 Personal history of nicotine dependence; I48.91 Unspecified atrial fibrillation; F03.90 Unspecified dementia, unspecified severity, without behavioral disturbance, psychotic disturbance, mood disturbance, and anxiety; Z95.1 Presence of aortocoronary bypass graft; I11.0 Hypertensive heart disease with heart failure; Z79.01 Long term (current) use of anticoagulants; Z79.899 Other long term (current) drug therapy
CPT/HCPCS: 33264; 93641; 33225; 84439; 80061; 80053; 84443; 85027; 83036; 71045; C1769 ×5; C1894; C1882; C1892; C1730 ×2; C1887; C1898; C1900; J3370; J2001; J3010; J2370; J2704; Q9966; 33249

== ENCOUNTER → 2021-04-10 | Outpatient (CLI) | payer MEDICARE ==
[2021-04-10 14:53] LABS: Basophils # (A) 0.02 X 10*3/uL (0.00-0.10); Basophils % (A) 0.5 %; Eosinophils # (A) 0.24 X 10*3/uL (0.04-0.35); Eosinophils % (A) 5.8 %; HCT 36.3 % (39.6-50.0); HGB 11.6 g/dL (13.0-17.0); Lymphocytes # (A) 1.39 X 10*3/uL (0.90-5.00); Lymphocytes % (A) 33.6 %; MCV 90.8 fL (80.0-97.0); Monocytes # (A) 0.45 X 10*3/uL (0.20-1.00); Monocytes % (A) 10.9 %; Neutrophils # (A) 2.02 X 10*3/uL (1.80-7.70); Neutrophils % (A) 48.7 %; Platelet Count 185 X 10*3/uL (140-440); RDW 13.5 % (11.5-14.5); WBC 4.14 X 10*3/uL (4.50-10.00)
[2021-04-10 22:14] LABS: African American GFR (CKD) 56.9 (60.0-200.0); Albumin 4.1 g/dL (3.80-4.90); Albumin/Globulin Ratio 1.37 (1.60-3.17); BUN/Creat Ratio 18.46 Ratio (12.00-20.00); Calcium 9.8 mg/dL (8.7-10.3); Chol/HDL Ratio 4.86; LDL Cholesterol,Calculated 118.2 mg/dL (0.0-131.0); Non-African American GFR(CKD) 49.1 (60.0-200.0); Potassium 4.5 mmol/L (3.5-5.5); Total Bilirubin 0.8 mg/dL (0.2-1.2); Total Protein 7.1 g/dL (6.2-8.2); VLDL Calculation 20.8 mg/dL (5.00-40.00)
[2021-04-10 22:22] LABS: T4, Free (Free Thyroxine) 1.1 ng/dL (0.80-1.80)
== END | disposition home or self-care (01) ==
LOC: LABWHC1 10:18
PROVIDERS: ATTEND Physician Assistant Medical
DX: Z00.00 Encounter for general adult medical examination without abnormal findings (principal); E11.9 Type 2 diabetes mellitus without complications
CPT/HCPCS: 36415; 80053; 80061; 84439; 84443; 85025

== ENCOUNTER 2021-07-12 15:18 | Inpatient (IN) | payer MEDICARE ==
[2021-07-12] MEDS ORDERED: SODIUM CHLORIDE 0.9% 1,000 ML IV STA (15:34)
[2021-07-12] MEDS ORDERED: SODIUM CHLORIDE 0.9% 500 ML 500 ML IV STA (15:34)
[2021-07-12] MEDS ORDERED: DIPH,PERTUS(ACELL)TETVAC-LF 0.5 ML VIAL IM ONE (15:34)
--- NOTE | 2021-07-12 15:38 | ED ---
Altered Mental Status HPI - General Chief Complaint: Altered Mental Status Stated Complaint: AMS Time Seen by Provider: 07/12/21 15:20 Source: patient, RN notes reviewed Mode of arrival: ambulatory Limitations: no limitations - History of Present Illness Initial Comments: 86-year-old male with a history dementia and CHF history Y complex tachycardia the past who is brought in by EMS from home due to increased verbal and more spontaneous she's been more lethargic today quite unusual. No focal weakness reported no falls reported no fevers chills nausea vomiting sweats reported. Patient self is a poor historian. No other information available at this time report taken from paramedics. MD Complaint: altered mental status, confusion - Related Data Home Medications Medication Instructions Recorded Confirmed Carvedilol [Coreg] 25 mg PO BID 07/23/20 07/12/21 Rivaroxaban [Xarelto] 20 mg PO W/SUPPER 07/23/20 07/12/21 metFORMIN HCL [Glucophage] 500 mg PO BID-W/MEALS 11/07/20 07/12/21 Amiodarone [Cordarone] 200 mg PO BID 07/12/21 07/12/21 Previous Rx's Medication Instructions Recorded Thiamine [Vitamin B-1] 100 mg PO DAILY #30 tab 07/28/20 Pravastatin Sodium [Pravachol] 10 mg PO HS #90 tab 11/12/20 Spironolactone [Aldactone] 25 mg PO DAILY #90 tablet 11/12/20 Allergies Allergy/AdvReac Type Severity Reaction Status Date / Time Penicillins Allergy Unknown Verified 07/12/21 17:29 Childhood Review of Systems ROS Statement: Those systems with pertinent positive or pertinent negative responses have been documented in the HPI. ROS Other: All systems not noted in ROS Statement are negative. Limitations: ROS unobtainable due to patients medical condition Past Medical History Past Medical History: Dementia, Diabetes Mellitus, Memory Impairment Additional Past Medical History / Comment(s): see Dr Joe Fontenot&Franci, dementia, fell Aug 2019 and hit his head-sister in law states he was confused but refused to see doctor, urinary leakage History of Any Multi-Drug Resistant Organisms: None Reported Past Surgical History: Unable to Obtain, AICD, Pacemaker Additional Past Surgical History / Comment(s): sister law has no further information Past Anesthesia/Blood Transfusion Reactions: Unable to Obtain Additional Past Anesthesia/Blood Transfusion Reaction / Comment(s): sister in law(Marii) not sure of pt or his family Type of Cardiac Device: Permanent Pacemaker, AICD Device Placement Date:: unknown Past Psychological History: Unable to Obtain Smoking Status: Former smoker - Past Family History Father History Unknown: Yes Mother History Unknown: Yes Family Medical History: Unable to Obtain Brother(s) History Unknown: Yes Sister(s) History Unknown: Yes General Exam - General Exam Comments Initial Comments: Social well-developed well-nourished pleasantly confused male who is awake alert but confused Limitations: no limitations General appearance: alert, in no apparent distress Head exam: Present: atraumatic, normocephalic, normal inspection Eye exam: Present: normal appearance, PERRL, EOMI. Absent: scleral icterus, conjunctival injection, periorbital swelling ENT exam: Present: mucous membranes dry Neck exam: Present: normal inspection, full ROM, other (No stridor JVD or bruits). Absent: tenderness, meningismus, lymphadenopathy Respiratory exam: Present: normal lung sounds bilaterally. Absent: respiratory distress, wheezes, rales, rhonchi, stridor Cardiovascular Exam: Present: regular rate, normal rhythm, normal heart sounds. Absent: systolic murmur, diastolic murmur, rubs, gallop, clicks GI/Abdominal exam: Present: soft, normal bowel sounds. Absent: distended, tenderness, guarding, rebound, rigid, bruit, pulsatile mass Extremities exam: Present: full ROM, normal capillary refill, other (Abrasion and avulsion injury seen to the right great toe no obvious deformity however no active bleeding no foreign body seen. This is dorsal medial aspect.). Absent: tenderness, pedal edema, joint swelling, calf tenderness Back exam: Present: normal inspection Neurological exam: Present: alert, altered, CN II-XII intact Psychiatric exam: Present: normal affect, normal mood Skin exam: Present: warm, dry, intact, normal color. Absent: rash Course Vital Signs 07/12/21 07/12/21 07/12/21 15:31 18:29 20:33 Temperature 99.7 F H Pulse Rate 70 72 98 Respiratory 18 18 17 Rate Blood Pressure 128/69 110/71 144/73 O2 Sat by Pulse 98 98 99 Oximetry Medical Decision Making - Medical Decision Making Did discuss findings with family who is a caregiver as well as with Stacey who is covering for Dr. Ortega the patient will be admitted for inpatient evaluation and treatment also neurological consultation. Evidence of dehydration and hypomagnesemia no acute changes seen on CAT scan Covid 19 test negative - Lab Data Result diagrams: 07/12/21 15:54 07/12/21 15:54 Lab Results 07/12/21 07/12/21 07/12/21 Range/Units 15:54 15:54 15:54 WBC 4.4 (3.8-10.6) k/uL RBC 4.30 (4.30-5.90) m/uL Hgb 12.5 L (13.0-17.5) gm/dL Hct 37.7 L (39.0-53.0) % MCV 87.7 (80.0-100.0) fL MCH 29.1 (25.0-35.0) pg MCHC 33.1 (31.0-37.0) g/dL RDW 12.9 (11.5-15.5) % Plt Count 176 (150-450) k/uL MPV 7.4 Neutrophils % 67 % Lymphocytes % 23 % Monocytes % 7 % Eosinophils % 1 % Basophils % 0 % Neutrophils # 2.9 (1.3-7.7) k/uL Lymphocytes # 1.0 (1.0-4.8) k/uL Monocytes # 0.3 (0-1.0) k/uL Eosinophils # 0.0 (0-0.7) k/uL Basophils # 0.0 (0-0.2) k/uL Sodium 134 L (137-145) mmol/L Potassium 4.2 (3.5-5.1) mmol/L Chloride 101 (98-107) mmol/L Carbon Dioxide 24 (22-30) mmol/L Anion Gap 9 mmol/L BUN 26 H (9-20) mg/dL Creatinine 1.25 (0.66-1.25) mg/dL Est GFR (CKD-EPI)AfAm 60 (>60 ml/min/1.73 sqM) Est GFR (CKD-EPI)NonAf 52 (>60 ml/min/1.73 sqM) Glucose 150 H (74-99) mg/dL Plasma Lactic Acid Edgar 1.3 (0.7-2.0) mmol/L Calcium 9.9 (8.4-10.2) mg/dL Magnesium 1.4 L (1.6-2.3) mg/dL Total Bilirubin 1.1 (0.2-1.3) mg/dL AST 24 (17-59) U/L ALT 12 (4-49) U/L Alkaline Phosphatase 61 (38-126) U/L Ammonia <9 (<30) umol/L Creatine Kinase 58 (55-170) U/L Troponin I (0.000-0.034) ng/mL NT-Pro-B Natriuret Pep pg/mL Total Protein 6.9 (6.3-8.2) g/dL Albumin 3.7 (3.5-5.0) g/dL Urine Color Urine Appearance (Clear) Urine pH (5.0-8.0) Ur Specific [place] (1.001-1.035) Urine Protein (Negative) Urine Glucose (UA) (Negative) Urine Ketones (Negative) Urine Blood (Negative) Urine Nitrite (Negative) Urine Bilirubin (Negative) Urine Urobilinogen (<2.0) mg/dL Ur Leukocyte Esterase (Negative) Urine RBC (0-5) /hpf Urine WBC (0-5) /hpf Ur Squamous Epith Cells (0-4) /hpf Hyaline Casts (0-2) /lpf Urine Mucus (None) /hpf Serum Alcohol <10 mg/dL Influenza Type A (PCR) (Not Detectd) Influenza Type B (PCR) (Not Detectd) RSV (PCR) (Not Detectd) SARS-CoV-2 (PCR) (Not Detectd) 07/12/21 07/12/21 07/12/21 Range/Units 15:54 15:54 15:54 WBC (3.8-10.6) k/uL RBC (4.30-5.90) m/uL Hgb (13.0-17.5) gm/dL Hct (39.0-53.0) % MCV (80.0-100.0) fL MCH (25.0-35.0) pg MCHC (31.0-37.0) g/dL RDW (11.5-15.5) % Plt Count (150-450) k/uL MPV Neutrophils % % Lymphocytes % % Monocytes % % Eosinophils % % Basophils % % Neutrophils # (1.3-7.7) k/uL Lymphocytes # (1.0-4.8) k/uL Monocytes # (0-1.0) k/uL Eosinophils # (0-0.7) k/uL Basophils # (0-0.2) k/uL Sodium (137-145) mmol/L Potassium (3.5-5.1) mmol/L Chloride (98-107) mmol/L Carbon Dioxide (22-30) mmol/L Anion Gap mmol/L BUN (9-20) mg/dL Creatinine (0.66-1.25) mg/dL Est GFR (CKD-EPI)AfAm (>60 ml/min/1.73 sqM) Est GFR (CKD-EPI)NonAf (>60 ml/min/1.73 sqM) Glucose (74-99) mg/dL Plasma Lactic Acid Edgar (0.7-2.0) mmol/L Calcium (8.4-10.2) mg/dL Magnesium (1.6-2.3) mg/dL Total Bilirubin (0.2-1.3) mg/dL AST (17-59) U/L ALT (4-49) U/L Alkaline Phosphatase (38-126) U/L Ammonia (<30) umol/L Creatine Kinase (55-170) U/L Troponin I 0.020 (0.000-0.034) ng/mL NT-Pro-B Natriuret Pep 2850 pg/mL Total Protein (6.3-8.2) g/dL Albumin (3.5-5.0) g/dL Urine Color Yellow Urine Appearance Clear (Clear) Urine pH 6.0 (5.0-8.0) Ur Specific [place] 1.020 (1.001-1.035) Urine Protein 1+ H (Negative) Urine Glucose (UA) 2+ H (Negative) Urine Ketones Trace H (Negative) Urine Blood Negative (Negative) Urine Nitrite Negative (Negative) Urine Bilirubin Negative (Negative) Urine Urobilinogen <2.0 (<2.0) mg/dL Ur Leukocyte Esterase Negative (Negative) Urine RBC <1 (0-5) /hpf Urine WBC 1 (0-5) /hpf Ur Squamous Epith Cells 1 (0-4) /hpf Hyaline Casts 1 (0-2) /lpf Urine Mucus Few H (None) /hpf Serum Alcohol mg/dL Influenza Type A (PCR) (Not Detectd) Influenza Type B (PCR) (Not Detectd) RSV (PCR) (Not Detectd) SARS-CoV-2 (PCR) (Not Detectd) 07/12/21 Range/Units 19:13 WBC (3.8-10.6) k/uL RBC (4.30-5.90) m/uL Hgb (13.0-17.5) gm/dL Hct (39.0-53.0) % MCV (80.0-100.0) fL MCH (25.0-35.0) pg MCHC (31.0-37.0) g/dL RDW (11.5-15.5) % Plt Count (150-450) k/uL MPV Neutrophils % % Lymphocytes % % Monocytes % % Eosinophils % % Basophils % % Neutrophils # (1.3-7.7) k/uL Lymphocytes # (1.0-4.8) k/uL Monocytes # (0-1.0) k/uL Eosinophils # (0-0.7) k/uL Basophils # (0-0.2) k/uL Sodium (137-145) mmol/L Potassium (3.5-5.1) mmol/L Chloride (98-107) mmol/L Carbon Dioxide (22-30) mmol/L Anion Gap mmol/L BUN (9-20) mg/dL Creatinine (0.66-1.25) mg/dL Est GFR (CKD-EPI)AfAm (>60 ml/min/1.73 sqM) Est GFR (CKD-EPI)NonAf (>60 ml/min/1.73 sqM) Glucose (74-99) mg/dL Plasma Lactic Acid Edgar (0.7-2.0) mmol/L Calcium (8.4-10.2) mg/dL Magnesium (1.6-2.3) mg/dL Total Bilirubin (0.2-1.3) mg/dL AST (17-59) U/L ALT (4-49) U/L Alkaline Phosphatase (38-126) U/L Ammonia (<30) umol/L Creatine Kinase (55-170) U/L Troponin I (0.000-0.034) ng/mL NT-Pro-B Natriuret Pep pg/mL Total Protein (6.3-8.2) g/dL Albumin (3.5-5.0) g/dL Urine Color Urine Appearance (Clear) Urine pH (5.0-8.0) Ur Specific [place] (1.001-1.035) Urine Protein (Negative) Urine Glucose (UA) (Negative) Urine Ketones (Negative) Urine Blood (Negative) Urine Nitrite (Negative) Urine Bilirubin (Negative) Urine Urobilinogen (<2.0) mg/dL Ur Leukocyte Esterase (Negative) Urine RBC (0-5) /hpf Urine WBC (0-5) /hpf Ur Squamous Epith Cells (0-4) /hpf Hyaline Casts (0-2) /lpf Urine Mucus (None) /hpf Serum Alcohol mg/dL Influenza Type A (PCR) Not Detected (Not Detectd) Influenza Type B (PCR) Not Detected (Not Detectd) RSV (PCR) Not Detected (Not Detectd) SARS-CoV-2 (PCR) Not Detected (Not Detectd) - EKG Data -: EKG Interpreted by Tn EKG Comments: Ventricular paced rhythm of 70 QRS 214 QT since QTC 514/555 - Radiology Data Radiology results: report reviewed (Imaging reviewed no acute findings), image reviewed Disposition Clinical Impression: Delirium due to general medical condition, Altered mental status, Dehydration, Hypomagnesemia Disposition: ADMITTED IP TO THIS [facility] Condition: Fair Referrals: None,Stated [REFERRING] - 1-2 days
[2021-07-12 16:08] LABS: Basophils % (A) 0 %; Eosinophils % (A) 1 %; HCT 37.7 % (39.0-53.0); HGB 12.5 gm/dL (13.0-17.5); Lymphocytes % (A) 23 %; MCH 29.1 pg (25.0-35.0); MCHC 33.1 g/dL (31.0-37.0); MCV 87.7 fL (80.0-100.0); Mean Platelet Volume 7.4; Monocytes # (A) 0.3 k/uL (0-1.0); Monocytes % (A) 7 %; Neutrophils # (A) 2.9 k/uL (1.3-7.7); Neutrophils % (A) 67 %; Platelet Count 176 k/uL (150-450); RDW 12.9 % (11.5-15.5); WBC 4.4 k/uL (3.8-10.6)
[2021-07-12 16:16] LABS: Lactic Acid, Venous 1.3 mmol/L (0.7-2.0)
[2021-07-12 16:18] LABS: ALT 12 U/L (4-49); AST 24 U/L (17-59); African American GFR (CKD) 60 (>60 ml/min/1.73 sqM); Albumin 3.7 g/dL (3.5-5.0); Alcohol <10 mg/dL; Alkaline Phosphatase 61 U/L (38-126); Anion Gap 9 mmol/L; Blood Urea Nitrogen 26 mg/dL (9-20); Calcium 9.9 mg/dL (8.4-10.2); Carbon Dioxide 24 mmol/L (22-30); Chloride 101 mmol/L (98-107); Creatine Kinase 58 U/L (55-170); Glucose 150 mg/dL (74-99); Magnesium 1.4 mg/dL (1.6-2.3); Non-African American GFR(CKD) 52 (>60 ml/min/1.73 sqM); Potassium 4.2 mmol/L (3.5-5.1); Sodium 134 mmol/L (137-145); Total Bilirubin 1.1 mg/dL (0.2-1.3); Total Protein 6.9 g/dL (6.3-8.2)
--- NOTE | 2021-07-12 16:41 | CT ---
EXAMINATION TYPE: CT brain wo con DATE OF EXAM: 07/12/2021 COMPARISON: None HISTORY: AMS CT DLP: 1102.4 mGycm Automated exposure control for dose reduction was used. There is cerebral cortical atrophy. There is no mass effect nor midline shift. There is no sign of in tracranial hemorrhage. There is hypodensity in the periventricular white matter. Calvarium is intact. There is normal aeration of the mastoid sinuses. IMPRESSION: Cerebral atrophy. Chronic small vessel ischemia. No acute intracranial abnormality.
--- NOTE | 2021-07-12 16:58 | XR ---
EXAMINATION TYPE: XR foot complete RT DATE OF EXAM: 07/12/2021 COMPARISON: None HISTORY: Pain. Big toe injury. TECHNIQUE: 3 views FINDINGS: There is hallux valgus. There is vascular calcification. There is evidence of old healed fr acture of the fifth metatarsal. I see no acute fracture nor dislocation. There is some spurring at th e IP MP joint of the big toe. IMPRESSION: Degenerative hypertrophic changes. No fracture.
--- NOTE | 2021-07-12 17:00 | XR ---
EXAMINATION TYPE: XR chest 2V DATE OF EXAM: 07/12/2021 COMPARISON: 11/12/2020 HISTORY: Confusion. Fever. TECHNIQUE: FINDINGS: Heart is enlarged. There is no heart failure. There is left axillary pacemaker. There are s ternal wires. Costophrenic angles are clear. Bony thorax is intact IMPRESSION: Cardiomegaly. Heart appears increased compared to old exam. No heart failure seen. No adam dence of bronchopneumonia.
[2021-07-12 17:23] LABS: Appearance,Urine Clear (Clear); Bilirubin,Urine Negative (Negative); Blood,Urine Negative (Negative); Color,Urine Yellow; Glucose,Urine (UA) 2+ (Negative); Hyaline Casts,Urine 1 /lpf (0-2); Ketones,Urine Trace (Negative); Leukocyte Esterase,Urine Negative (Negative); Mucus,Urine Few /hpf; Nitrite,Urine Negative (Negative); Protein,Urine 1+ (Negative); RBC,Urine <1 /hpf (0-5); Squamous Epithelial Cell,Urine 1 /hpf (0-4); Urobilinogen,Urine <2.0 mg/dL (<2.0); WBC,Urine 1 /hpf (0-5)
[2021-07-12] MEDS ORDERED: LORazepam 2 MG/ML INJ IV STA (20:31)
[2021-07-12] MEDS ORDERED: NALOXONE 0.4 MG/ML 1 ML VIAL IV PRN (20:43)
[2021-07-12] MEDS ORDERED: ACETAMINOPHEN TAB 325 MG TAB PO PRN (20:43)
[2021-07-12] MEDS: ALPRAZolam 0.25 MG TAB PO PRN (22:54)
[2021-07-12] MEDS: AMIODARONE 200 MG TAB PO SCH (22:54)
[2021-07-12] MEDS: MAGNESIUM SULFATE-D5W PMX 1 GM in DEXTROSE/WATER 1 100ML.BAG IVPB SCH (22:54)
[2021-07-12] MEDS: carvediloL 12.5 MG TAB PO SCH (23:12)
[2021-07-12] MEDS: PRAVASTATIN SODIUM 20 MG TAB PO SCH (23:12)
[2021-07-13] MEDS: MAGNESIUM SULFATE-D5W PMX 1 GM in DEXTROSE/WATER 1 100ML.BAG IVPB SCH (00:43)
[2021-07-13] MEDS: THIAMINE 100 MG TAB PO SCH (10:03)
[2021-07-13] MEDS: SPIRONOLACTONE 25 MG TAB PO SCH (10:03)
[2021-07-13] MEDS: metFORMIN 500 MG TAB PO SCH ×2 (10:03→17:34)
[2021-07-13] MEDS: carvediloL 12.5 MG TAB PO SCH ×2 (10:03→17:33)
[2021-07-13] MEDS: AMIODARONE 200 MG TAB PO SCH ×2 (10:03→20:35)
--- NOTE | 2021-07-13 10:27 | P.CNNES ---
History of Present Illness Consult date: 07/13/21 Requesting physician: Albin Sparks Reason for Consult: altered mental status with history of dementia History of Present Illness: This is an 86-year-old woman with medical history of reported dementia, congestive heart failure, pacemaker, on anticoagulation who presented emergency department via EMS on 07/12/2021 for altered mental status. Some of the history is obtained from medical record and patient's nurse. Per the patient's nurse he lives at nursing facility and patient was more verbal and hostile and that is why he was send over. Per the ED note, is documented to the patient has been the more quiet than usual and lethargic. Unsure of what patient' baseline mentation. Patient is unable to provide any history and he says is that he wants to use the bathroom. Patient is on Xarelto model pravastatin, carvedilol, thiamine, amiodarone, metformin and spironolactone. Later, I got hold of patient family members (sister's-in-law Marii). He has dementia He lives [facility] and stated patient has dementia for the past two years. He is oriented to self but does not seem to be oriented to place (but rare occasion he would) and is not oriented to time. Patient uses a cane to get around and is able to feed self and use bathroom on his own. At times he would have some normal conversation. But she stated this change in mentation is new. Patient does not have history of stroke, TIA or seizure. Patient is on Xarelto that was started by Dr. Blancas (Child Psychiatrist). Some of the workup in the hospital consisted of: Initial vital signs his blood pressure of 128/68, heart rate of 70, respiratory of 18, temperature of 99.7 Fahrenheit oral and pulse ox of 98% room air. She repeated temperature is 97.6 and 97.3. WBC is 4.4 thousand. Sodium is 134, creatinine is 1.25, serum glucose is 150, calcium is 9.9, magnesium is 1.4, AST is 24, ALT of 12, ammonia is less than 9. Urinalysis seems that he is negative for urinary tract infection. Serum alcohol level is less than 10 Daniels virus PCR was not detected. Influenza A and B PCR was not detected. CT of the head is reported as cerebral atrophy. Chronic small vessel ischemia. No acute intracranial abnormality. Personally reviewed the CT of the head and there is no evidence of acute or subacute ischemia or no into parenchymal hemorrhage that was able to appreciate Right foot x-ray was reported as degenerative hypertrophic changes. No fracture. EKG reported as ventricular paced rhythm. Abnormal EKG. Review of Systems Review of system is limited but the pertitent positive and negative as per HPI. Past Medical History Past Medical History: Dementia, Diabetes Mellitus, Memory Impairment Additional Past Medical History / Comment(s): see Dr Diaz H&P, dementia, fell Aug 2019 and hit his head-sister in law states he was confused but refused to see doctor, urinary leakage History of Any Multi-Drug Resistant Organisms: None Reported Past Surgical History: Unable to Obtain, AICD, Pacemaker Additional Past Surgical History / Comment(s): sister law has no further information Past Anesthesia/Blood Transfusion Reactions: Unable to Obtain Additional Past Anesthesia/Blood Transfusion Reaction / Comment(s): sister in law(Marii) not sure of pt or his family Type of Cardiac Device: Permanent Pacemaker, AICD Device Placement Date:: unknown Smoking Status: Former smoker - Past Family History Father History Unknown: Yes Mother History Unknown: Yes Family Medical History: Unable to Obtain Brother(s) History Unknown: Yes Sister(s) History Unknown: Yes Medications and Allergies Home Medications Medication Instructions Recorded Confirmed Type Carvedilol [Coreg] 25 mg PO BID 07/23/20 07/12/21 History Rivaroxaban [Xarelto] 20 mg PO W/SUPPER 07/23/20 07/12/21 History Thiamine [Vitamin B-1] 100 mg PO DAILY #30 tab 07/28/20 07/12/21 Rx metFORMIN HCL [Glucophage] 500 mg PO BID-W/MEALS 11/07/20 07/12/21 History Pravastatin Sodium [Pravachol] 10 mg PO HS #90 tab 11/12/20 07/12/21 Rx Spironolactone [Aldactone] 25 mg PO DAILY #90 tablet 11/12/20 07/12/21 Rx Amiodarone [Cordarone] 200 mg PO BID 07/12/21 07/12/21 History Allergies Allergy/AdvReac Type Severity Reaction Status Date / Time Penicillins Allergy Unknown Verified 07/12/21 17:29 Childhood Physical Examination - Vital Signs Vital Signs: Vital Signs Temp Pulse Pulse Pulse Resp BP BP 07/13/21 04:31 97.3 F L 67 16 07/12/21 22:38 97.6 F 66 16 136/71 07/12/21 20:33 98 17 144/73 07/12/21 18:29 72 18 110/71 07/12/21 15:31 99.7 F H 70 18 128/69 BP Pulse Ox 07/13/21 04:31 97/56 97 07/12/21 22:38 99 07/12/21 20:33 99 07/12/21 18:29 98 07/12/21 15:31 98 Intake and Output 07/12/21 07/13/21 07/13/21 22:59 06:59 14:59 Other: # Voids 2 Weight 61.734 kg 61.734 kg GENERAL: The patient is lying and does not seem in acute distress. CHEST: No edema of lower extremities. No carotid bruit bilaterally. LUNG: Clear to auscultation bilaterally no wheezing noted throughout. Not labored breathing. ABDOMEN/GI: Bowel sounds present in all 4 quadrants. No tenderness to palpation throughout. NEUROLOGICAL: Higher mental function: The patient is awake but is not oriented to self, place or time. All he says is that he wants to go to bathroom. He followed few simple commands (thumbs up and open mouth). Otherwise could not assess language. Cranial nerves: The pupils are round, equal and reactive to light. Visual arboleda are hard to assess. Extraocular movement is tracks throughout the room. Left nasolabial flattening. No dysarthria is noted. Motor: Gait is deferred. The strength is moving bilateral upper extremities symmetrically without noticeable focality. Could not assess lowers because of his cooperation. Normal tone and bulk. Cerebellum: Could not asses. Sensation: Could not asses. Reflexes (right/left): 2+ throughout except ankles are 1+. Plantars are downgoing bilaterally. Results - Laboratory Findings CBC and BMP: 07/12/21 15:54 07/12/21 15:54 Abnormal Lab Findings: Abnormal Labs 07/12/21 07/12/21 07/12/21 15:54 15:54 15:54 Hgb 12.5 L Hct 37.7 L Sodium 134 L BUN 26 H Glucose 150 H Magnesium 1.4 L Urine Protein 1+ H Urine Glucose (UA) 2+ H Urine Ketones Trace H Urine Mucus Few H Assessment and Plan Assessment: * Altered mental status. Encephalopathy of unknown etiology. Rule out any unde rlying infection. Cannot rule out as a cause of his worsening dementia. * Reported history of dementia (per family member is is oriented to self and is able to feed and use the bathroom on his own and times would have normal conversation) * Congestive heart failure * Pacemaker * On Xarelto (per family member started by Cardiology team) Plan: I cannot get MRI of the brain since the patient has a pacemaker. Therefore I'll get a repeat CT of the head for tomorrow to see if there is any changes compared to the initial CT. Ordered carotid duplex, TSH, vitamin B12, folate level. Ordered 2-D echo. Routine EEG (which will be done on 07/15/2021). Continue neuro checks Consulted PT, OT and IRON POURER Please avoid any sedation or narcotic that would affect the patient's mentation. If Patient gets agitated then recommend Seroquel 25 mg daily at bedtime. We'll defer the rest of the medical management to the primary team. The plan is discussed with the patient's [id number] (via phone) and patient's nurse. Thank you for the consultation. Mark Barcenas MD Neuro-Hospitalist Time with Patient: Greater than 30
--- NOTE | 2021-07-13 15:27 | US ---
EXAMINATION TYPE: US carotid duplex BILAT DATE OF EXAM: 07/13/2021 COMPARISON: CLINICAL HISTORY: tia. poor historian, unable to wake patient up and position head. EXAM MEASUREMENTS: RIGHT: Peak Systolic Velocity (PSV) cm/sec ----- Right CCA: 41.2 ----- Right ICA: 82.7 ----- Right ECA: 130.6 ICA/CCA ratio: 2.0 RIGHT: End Diastole cm/sec ----- Right CCA: 7.0 ----- Right ICA: 0.0 ----- Right ECA: 5.1 LEFT: Peak Systolic Velocity (PSV) cm/sec ----- Left CCA: 42.7 ----- Left ICA: 66.9 ----- Left ECA: 124.2 ICA/CCA ratio: 1.6 LEFT: End Diastole cm/sec ----- Left CCA: 7.8 ----- Left ICA: 23.0 ----- Left ECA: 0.0 VERTEBRALS (direction of flow): Right Vertebral: Antegrade Left Vertebral: Antegrade Rhythm: Normal Plaque in bilateral bulbs. Wall thickening. Follow-up based on clinical findings. IMPRESSION: 1. Atheromatous plaquing without significant flow-limiting stenosis. There is borderline narrowing at essentially 50% based on velocities within the left internal carotid artery. Criteria for Assigning % of Stenosis / Diameter reduction (Estimation based on the indirect measurements of the internal carotid artery velocities (ICA PSV). 1. Normal (no stenosis)=ICA PSV < 125 cm/s: ratio < 2.0: ICA EDV<40 cm/s. 2. Less than 50% stenosis=ICA PSV < 125 cm/s: ratio < 2.0: ICA EDV<40 cm/s. 3. 50 to 69% stenosis=ICA PSV of 125 to 230 cm/s: ration 2.0 ? 4.0: ICA EDV 40-100 cm/s. 4. Greater than 70% stenosis to near occlusion= ICA PSV > 230 cm/s: ratio > 4.0: ICA EDV > 100 cm/s. 5. Near occlusion= ICA PSV velocities may be low or undetectable: variable ratio and ICA EDV. 6. Total occlusion=unable to detect flow.
[2021-07-13] MEDS ORDERED: RIVAROXABAN 20 MG TAB PO SCH (17:30)
[2021-07-13] MEDS: PRAVASTATIN SODIUM 20 MG TAB PO SCH (20:34)
[2021-07-13] MEDS: ALPRAZolam 0.25 MG TAB PO PRN (20:35)
[2021-07-14] MEDS: LORazepam 2 MG/ML INJ IV PRN ×2 (00:25→18:13)
[2021-07-14 06:18] LABS: African American GFR (CKD) 69 (>60 ml/min/1.73 sqM); Anion Gap 5 mmol/L; Blood Urea Nitrogen 22 mg/dL (9-20); Calcium 9.6 mg/dL (8.4-10.2); Carbon Dioxide 26 mmol/L (22-30); Chloride 104 mmol/L (98-107); Glucose 95 mg/dL (74-99); Non-African American GFR(CKD) 60 (>60 ml/min/1.73 sqM); Potassium 4.1 mmol/L (3.5-5.1); Sodium 135 mmol/L (137-145)
--- NOTE | 2021-07-14 09:53 | ECHOF ---
Referral Reason: MEASUREMENTS -------- HEIGHT: 165.1 cm WEIGHT: 61.7 kg BP: IVSd: 0.7 cm (0.6 - 1.1) LVIDd: 4.8 cm (3.9 - 5.3) LVPWd: 1.0 cm (0.6 - 1.1) EDV(Teich): 105 ml IVSs: 1.5 cm LVIDs: 4.0 cm LVPWs: 1.4 cm %IVS Thck: 115 % ESV(Teich): 72 ml EF(Teich): 32 % %FS: 15 % SV(Teich): 33 ml RVIDd: 3.3 cm (< 3.3) Ao Diam: 3.3 cm (2.0 - 3.7) LA Diam: 4.2 cm (2.7 - 3.8) AV Cusp: 1.4 cm (1.5 - 2.6) EPSS: 2.2 cm MV E Arnel: 0.58 m/s MV DecT: 104 ms MV Dec [place]: 5.6 m/s MV A Arnel: 0.35 m/s MV E/A Ratio: 1.65 MV PHT: 30 ms MR Vmax: 2.49 m/s MR maxP.82 mmHg LVOT Vmax: 0.69 m/s LVOT maxP.89 mmHg AV Vmax: 0.95 m/s AV maxP.59 mmHg AR Vmax: 2.08 m/s AR maxP.35 mmHg AR PHT: 1194 ms AR Dec Time: 4116 ms AR Dec [place]: 0.5 m/s TR Vmax: 1.96 m/s TR maxP.40 mmHg RAP: 5.00 mmHg RVSP: 20.40 mmHg MV EF SLOPE: 127.31 mm/s (70 - 150) MV EXCURSION: 20.82 mm (> 18.000) FINDINGS -------- Pacerwire seen in RV and RA. AICD This was a technically difficult study with suboptimal views. Pt is uncooperative The left ventricular size is normal. Left ventricular wall thickness is normal. Overall left vent ricular systolic function is moderate-severely impaired with, an EF between 30 - 35 %. Mid anterose ptal LV wall motion is hypokinetic. Apical anterior LV wall motion is hypokinetic. The right ventricle is normal in size. The left atrial size is normal. The right atrial size is normal. Lumason used Aortic valve is trileaflet and is mildly thickened. Trace amount of aortic regurgitation. The mitral valve is normal. The mitral valve leaflets are mildly thickened. Mild mitral annular c alcification present. Mild mitral regurgitation is present. The tricuspid valve appears structurally normal. Mild tricuspid regurgitation present. Right vent ricular systolic pressure is normal at < 35 mmHg. Trace/mild (physiologic) pulmonic regurgitation. The aortic root size is normal. IVC Not well visulized. There is no pericardial effusion. CONCLUSIONS -------- 1. Pacerwire seen in RV and RA. 2. AICD 3. Pt is uncooperative 4. The left ventricular size is normal. 5. Left ventricular wall thickness is normal. 6. Overall left ventricular systolic function is moderate-severely impaired with, an EF between 30 - 35 %. 7. Mid anteroseptal LV wall motion is hypokinetic. 8. Apical anterior LV wall motion is hypokinetic. 9. Aortic valve is trileaflet and is mildly thickened. 10. Trace amount of aortic regurgitation. 11. The mitral valve leaflets are mildly thickened. 12. Mild mitral annular calcification present. 13. Mild mitral regurgitation is present. 14. Mild tricuspid regurgitation present. 15. Trace/mild (physiologic) pulmonic regurgitation. 16. There is no pericardial effusion. SCHOOL CHILD CARE ATTENDANT: Imelda Chang RDCS
[2021-07-14] MEDS: metFORMIN 500 MG TAB PO SCH ×2 (11:36→17:32)
--- NOTE | 2021-07-14 11:36 | P.PN ---
Subjective Progress Note Date: 07/14/21 Patient is seen at bedside and he is about the same. Objective - Vital Signs Vital signs: Vital Signs Temp 98.2 F 07/14/21 04:50 Pulse 70 07/14/21 08:18 Resp 16 07/14/21 04:50 BP 101/47 07/14/21 08:18 Pulse Ox 97 07/14/21 04:50 Intake & Output 07/13/21 07/14/21 07/14/21 18:59 06:59 18:59 Intake Total 500 Balance 500 Weight 61.734 kg Intake: Oral 500 Other: Voiding Method Toilet Toilet Diaper Diaper # Voids 4 5 # Bowel Movements 1 - Exam GENERAL: The patient is lying and does not seem in acute distress. NEUROLOGICAL: Higher mental function: The patient is sleeping and is aweakble briefly but wants to be left alone. Cranial nerves: Left nasolabial flattening. No dysarthria is noted. Otherwise limited because of his cooperation. Motor: Gait is deferred. The strength is moving bilateral upper extremities symmetrically without noticeable focality. Could not assess lowers because of his cooperation. Normal tone and bulk. Cerebellum: Could not asses. Sensation: Could not asses. Reflexes (right/left): 2+ throughout except ankles are 1+. Plantars are downgoing bilaterally. WORK-UP: WBC is 4.4 thousand. AST is 24, ALT of 12, ammonia is less than 9. Urinalysis seems that he is negative for urinary tract infection. Serum alcohol level is less than 10 Daniels virus PCR was not detected. Influenza A and B PCR was not detected. CT of the head is reported as cerebral atrophy. Chronic small vessel ischemia. No acute intracranial abnormality. Personally reviewed the CT of the head and there is no evidence of acute or subacute ischemia or no into parenchymal hemorrhage that was able to appreciate Carotid Duplex was reported as bathroom as plaquing without significant flow limiting stenosis. There is borderline narrowing at essentially 50% based on the velocities within the left internal carotid artery. 2-D echo was reported as left ventricle size is normal. Left Ventricular wall thickness is normal. Ejection fraction of 30-35%. Motion wall hypokinetic over the apical anterior left ventricle as well as mild anteroseptal. Right foot x-ray was reported as degenerative hypertrophic changes. No fracture. TSH: 7.33 - Labs CBC & Chem 7: 07/12/21 15:54 07/14/21 05:25 Labs: Abnormal Lab Results - Last 24 Hours (Table) 07/14/21 Range/Units 05:25 Sodium 135 L (137-145) mmol/L BUN 22 H (9-20) mg/dL Microbiology - Last 24 Hours (Table) 07/12/21 15:59 Blood Culture - Preliminary Blood No Growth after 24 hours Assessment and Plan Assessment: * Altered mental status. Encephalopathy of unknown etiology. Rule out any underlying infection. Cannot rule out as a cause of his worsening dementia. * Reported history of dementia (per family member is is oriented to self and is able to feed and use the bathroom on his own and times would have normal conversation) * Mild left ICA stenosis (50% per carotid duplex) * Congestive heart failure ejection fraction of 30-35% on recent echo * Pacemaker * On Xarelto (per family member started by Cardiology team) Plan: * I cannot get MRI of the brain since the patient has a pacemaker. Ordered repeat CT head today to see if there is any changes compared to the initial CT. * Vitamin B12, folate level are pending. * Routine EEG is ordered (which will be done on 07/15/2021). I will not start the patient on antiepileptic drugs unless there is epileptiform discharges or seizure on the EEG. * Continue neuro checks * Consulted PT, OT and LOCAL SALES MANAGER * Please avoid any sedation or narcotic that would affect the patient's m entation. If Patient gets agitated then recommend Seroquel 25 mg daily at bedtime. * We'll defer the rest of the medical management to the primary team. The plan is discussed with the patient's nurse. Dr. Lr will start neurology service tomorrow AM. Mark Barcenas MD Neuro-Hospitalist Time with Patient: Less than 30
[2021-07-14] MEDS: carvediloL 12.5 MG TAB PO SCH ×2 (11:40→17:32)
[2021-07-14] MEDS: THIAMINE 100 MG TAB PO SCH (11:41)
[2021-07-14] MEDS: AMIODARONE 200 MG TAB PO SCH ×2 (11:41→21:29)
[2021-07-14] MEDS: SPIRONOLACTONE 25 MG TAB PO SCH (11:41)
--- NOTE | 2021-07-14 12:39 | CT ---
"EXAMINATION TYPE: CT brain wo con DATE OF EXAM: 07/14/2021 COMPARISON: 07/12/2021 INDICATION: Altered mental status DLP: 1697.2 mGycm, Automated exposure control for dose reduction was used. CONTRAST: None CT of the brain is performed utilizing 3 mm thick sections through the posterior fossa and 3 mm thick sections through the remaining calvarium. Study is performed within 24 hours of arrival to the hosp ital. No abnormal hyperdensity is present to suggest an acute intracranial hemorrhage. No mass lesion is evident. No acute infarcts are evident. There is periventricular white matter hypodensity, likely on the basis of chronic white matter ischemic change. Some more focal hypodensity may be within the left parietal lobe extending to the cortex. Correlate for posterior left parietal infarct. If closer evaluation is required, consider MRI. Ventricles and sulci are prominent for the patient age. Paranasal sinuses and mastoid air cells within the [id number] are clear. IMPRESSIONS: 1. Subtle diminished density within the posterior left parietal lobe suspicious for developing infa rct. Correlate with the patient's clinical symptoms. A Red level critical message alert has been initiated for Lauren Rosales MD via the [employer] 36 0 | Critical Results System on 07/14/2021 12:37 PM. This message alert has been sent to Lauren duggan MD via the preferences provided by the clinician for the receipt of Radiology Critical Findings . Message ID [id number]."
--- NOTE | 2021-07-14 16:14 | P.HPIM ---
History of Present Illness H&P Date: 07/13/21 Chief Complaint: Altered mental status Patient is a 86-year-old male with a known history of dementia, diabetes type 2, severe ischemic cardiomyopathy and sustained VT status post biventricular AICD placement, history of complete heart block, atrial fibrillation persistent, coronary disease with CABG, anticoagulation with xarelto and other multiple medical problems was brought to the hospital by family due to altered mental status. Patient has been more lethargic and trouble recognizing family request. Patient was having wobbly gait and was able to bump into the wall at home. No slurred speech. No focal weakness. No seizures noted at home. Patient does not have any cough or sputum production. No fever or chills. Patient is a poor historian and could not provide a reliable history. On admission CT head showed cerebral atrophy. Chronic small ischemia. No acute intracranial abnormality noted. Extremities the right foot showed degenerative hypertrophic changes. No fractures. Chest x-ray showed cardiomegaly. Artificial increased compatible exam. No hea rt failure seen. EKG showed ventricular pacer rhythm. XL laboratory data showed WBC 4.4 hemoglobin 12.5 and platelets 176 Sodium 134 potassium 4.2 chloride 101, BUN 26 and creatinine 1.25 and blood sugar 150 and magnesium 1.4 Urinalysis is negative for infection. Influenza and COVID-19 PCR not detected. Review of Systems Complete review of systems could not be obtained from the patient except as per HPI Past Medical History Past Medical History: Dementia, Diabetes Mellitus, Memory Impairment Additional Past Medical History / Comment(s): see Dr Diaz H&P, dementia, fell Aug 2019 and hit his head-sister in law states he was confused but refused to see doctor, urinary leakage History of Any Multi-Drug Resistant Organisms: None Reported Past Surgical History: Unable to Obtain, AICD, Pacemaker Additional Past Surgical History / Comment(s): sister law has no further information Past Anesthesia/Blood Transfusion Reactions: Unable to Obtain Additional Past Anesthesia/Blood Transfusion Reaction / Comment(s): sister in law(Marii) not sure of pt or his family Type of Cardiac Device: Permanent Pacemaker, AICD Device Placement Date:: unknown Smoking Status: Former smoker - Past Family History Father History Unknown: Yes Mother History Unknown: Yes Family Medical History: Unable to Obtain Brother(s) History Unknown: Yes Sister(s) History Unknown: Yes Medications and Allergies Home Medications Medication Instructions Recorded Confirmed Type Carvedilol [Coreg] 25 mg PO BID 07/23/20 07/12/21 History Rivaroxaban [Xarelto] 20 mg PO W/SUPPER 07/23/20 07/12/21 History Thiamine [Vitamin B-1] 100 mg PO DAILY #30 tab 07/28/20 07/12/21 Rx metFORMIN HCL [Glucophage] 500 mg PO BID-W/MEALS 11/07/20 07/12/21 History Pravastatin Sodium [Pravachol] 10 mg PO HS #90 tab 11/12/20 07/12/21 Rx Spironolactone [Aldactone] 25 mg PO DAILY #90 tablet 11/12/20 07/12/21 Rx Amiodarone [Cordarone] 200 mg PO BID 07/12/21 07/12/21 History Allergies Allergy/AdvReac Type Severity Reaction Status Date / Time Penicillins Allergy Unknown Verified 07/12/21 17:29 Childhood Physical Exam Vitals: Vital Signs Temp Pulse Resp BP BP Pulse Ox 07/14/21 08:18 70 101/47 07/14/21 04:53 53 L 07/14/21 04:50 98.2 F 44 L 16 114/49 97 07/13/21 20:32 97.6 F 71 16 103/53 97 07/13/21 17:33 99/47 Intake and Output 07/13/21 07/14/21 07/14/21 22:59 06:59 14:59 Intake Total 500 Balance 500 Intake: Oral 500 Other: Voiding Method Toilet Diaper # Voids 1 5 # Bowel Movements 1 PHYSICAL EXAMINATION: Patient is lying in the bed comfortably, no acute distress, awake alert and o riented.. HEENT: Normocephalic. Neck is supple. Pupils reactive. Nostrils clear. Oral cavity is moist. Neck reveals no JVD, carotid bruits, or thyromegaly. CHEST EXAMINATION: Trachea is central. Symmetrical expansion. Lung arboleda clear to auscultation and percussion. CARDIAC: Normal S1, S2 with no gallops. No murmurs ABDOMEN: Soft. Bowel sounds normal. No organomegaly. No abdominal bruits. Extremities: reveal no edema. No clubbing or cyanosis Neurologically awake, alert, oriented x2-3 with well-coordinated movements. [id number] coordination intact. Does have wobbly gait. Gross No focal deficits noted Skin: No rash or skin lesions. Psychiatric: Coperative. Nonsuicidal Musculoskeletal: No joint swelling or deformity. Normal range of motion. Results CBC & Chem 7: 07/12/21 15:54 07/14/21 05:25 Labs: Abnormal Lab Results - Last 24 Hours (Table) 07/14/21 Range/Units 05:25 Sodium 135 L (137-145) mmol/L BUN 22 H (9-20) mg/dL Microbiology - Last 24 Hours (Table) 07/12/21 15:59 Blood Culture - Preliminary Blood No Growth after 24 hours Thrombosis Risk Factor Assmnt - DVT/VTE Prophylaxis DVT/VTE Prophylaxis: Pharmacologic Prophylaxis ordered Assessment and Plan Assessment: Altered mental status and wobbly gait at home. Possible acute encephalopathy/rule out CVA. Hypovolemic hyponatremia Hypomagnesemia Diabetes type 2 [id number] Severe ischemic cardiomyopathy 30% status post biventricular ICD pacer Coronary artery disease history of CABG History of complete heart block Dementia Persistent atrial fibrillation on anticoagulation with xarelto DVT prophylaxis. Patient is already on anticoagulation Plan: Patient will be continued on gentle IV hydration. Replace magnesium. Continue with telemetry monitoring and neuro checks. CT head showed no acute process. Neurology was consulted and full neurological workup TTE and carotid duplex was ordered.. Continue to follow closely. Continue with home medications. Time with Patient: Greater than 30
--- NOTE | 2021-07-14 18:27 | CT ---
EXAMINATION TYPE: CT brain wo con DATE OF EXAM: 07/14/2021 COMPARISON: Today HISTORY: Fall post prior scan. CT DLP: 1144.7 mGycm Automated exposure control for dose reduction was used. Exam performed with no contrast. There is cerebral cortical atrophy. There is no mass effect nor midline shift. There is no evidence o f intracranial hemorrhage. There is grade white matter hypodensity left posterior temporal lobe. The calvarium is intact. IMPRESSION: Subacute left posterior temporal lobe infarct is not changed compared to exam earlier today but is a change compared to 07/12/2021.
[2021-07-14] MEDS: PRAVASTATIN SODIUM 20 MG TAB PO SCH (21:32)
[2021-07-14] MEDS: HEPARIN SODIUM,PORCINE/PF 5,000 UNIT/0.5 ML SYRINGE SQ SCH (21:32)
--- NOTE | 2021-07-14 22:15 | P.PN ---
Subjective Progress Note Date: 07/14/21 Principal diagnosis: Altered mental status Acute CVA Patient is a 86-year-old male with a known history of dementia, diabetes type 2, severe ischemic cardiomyopathy and sustained VT status post biventricular AICD placement, history of complete heart block, atrial fibrillation persistent, coronary disease with CABG, anticoagulation with xarelto and other multiple medical problems was brought to the hospital by family due to altered mental status. Patient has been more lethargic and trouble recognizing family request. Patient was having wobbly gait and was able to bump into the wall at home. No slurred speech. No focal weakness. No seizures noted at home. Patient does not have any cough or sputum production. No fever or chills. Patient is a poor historian and could not provide a reliable history. On admission CT head showed cerebral atrophy. Chronic small ischemia. No acute intracranial abnormality noted. Extremities the right foot showed degenerative hypertrophic changes. No fractures. Chest x-ray showed cardiomegaly. Artificial increased compatible exam. No heart failure seen. EKG showed ventricular pacer rhythm. XL laboratory data showed WBC 4.4 hemoglobin 12.5 and platelets 176 Sodium 134 potassium 4.2 chloride 101, BUN 26 and creatinine 1.25 and blood sugar 150 and magnesium 1.4 Urinalysis is negative for infection. Influenza and COVID-19 PCR not detected. 07/14/2021 07/14/2021 Patient is currently resting in the bed. Able to communicate with the family via telephone. No complaints of chest pain or shortness breath. No palpitation s. No headache or dizziness or lightheadedness. Patient was having wobbling gait as per nursing staff and swaying to the right. Patient otherwise denied any fever or chills. No cough or sputum production. No dysuria or hematuria. Neurology is following. Current medications reviewed. Repeat CT brain showed subtle diminished density within the posterior later parietal lobe suspicious for developing infarct. Objective - Vital Signs Vital signs: Vital Signs Temp 97.7 F 07/14/21 13:00 Pulse 104 H 07/14/21 13:00 Resp 16 07/14/21 13:00 BP 114/80 07/14/21 13:00 Pulse Ox 97 07/14/21 04:50 Intake & Output 07/13/21 07/14/21 07/14/21 18:59 06:59 18:59 Intake Total 500 Balance 500 Weight 61.734 kg Intake: Oral 500 Other: Voiding Method Toilet Toilet Toilet Diaper Diaper Diaper # Voids 4 5 # Bowel Movements 1 - Exam PHYSICAL EXAMINATION: Patient is lying in the bed comfortably, no acute distress, awake alert and oriented.. HEENT: Normocephalic. Neck is supple. Pupils reactive. Nostrils clear. Oral cavity is moist. Neck reveals no JVD, carotid bruits, or thyromegaly. CHEST EXAMINATION: Trachea is central. Symmetrical expansion. Lung arboleda clear to auscultation and percussion. CARDIAC: Normal S1, S2 with no gallops. No murmurs ABDOMEN: Soft. Bowel sounds normal. No organomegaly. No abdominal bruits. Extremities: reveal no edema. No clubbing or cyanosis Neurologically awake, alert, oriented x2-3 with well-coordinated movements. Bfywdw-vb-[id number] coordination intact. Does have wobbly gait. Gross No focal deficits noted Skin: No rash or skin lesions. Psychiatric: Coperative. Nonsuicidal Musculoskeletal: No joint swelling or deformity. Normal range of motion. - Labs CBC & Chem 7: 07/12/21 15:54 07/14/21 05:25 Labs: Abnormal Lab Results - Last 24 Hours (Table) 07/14/21 Range/Units 05:25 Sodium 135 L (137-145) mmol/L BUN 22 H (9-20) mg/dL Microbiology - Last 24 Hours (Table) 07/12/21 15:59 Blood Culture - Preliminary Blood No Growth after 24 hours Assessment and Plan Assessment: Altered mental status and wobbly gait at home. Possible acute CVA. Hypovolemic hyponatremia Hypomagnesemia Diabetes type 2 [id number] Severe ischemic cardiomyopathy 30% status post biventricular ICD pacer Coronary artery disease history of CABG History of complete heart block Dementia Persistent atrial fibrillation on anticoagulation with xarelto DVT prophylaxis. Patient is already on anticoagulation Plan: Patient will be continued on gentle IV hydration. Replace magnesium. Continue with telemetry monitoring and neuro checks. initial CT head showed no acute process. Neurology was consulted and full neurological workup TTE and carotid duplex was ordered.. repeat CT showed left parietal subacute infarct. Continue with neurochecks.Patient is already on full anticoagulation. Continue to follow closely. Continue with home medications. Time with Patient: Greater than 30
[2021-07-14 22:54] LABS: VLDL Calculation 16.92 mg/dL (5.00-40.00)
[2021-07-15 07:06] LABS: Basophils % (A) 1 %; Eosinophils # (A) 0.1 k/uL (0-0.7); Eosinophils % (A) 3 %; HCT 31.3 % (39.0-53.0); Lymphocytes % (A) 32 %; MCH 30.1 pg (25.0-35.0); MCHC 35.2 g/dL (31.0-37.0); MCV 85.6 fL (80.0-100.0); Mean Platelet Volume 7.2; Monocytes # (A) 0.3 k/uL (0-1.0); Monocytes % (A) 9 %; Neutrophils # (A) 1.8 k/uL (1.3-7.7); Neutrophils % (A) 54 %; Platelet Count 174 k/uL (150-450); RBC 3.66 m/uL (4.30-5.90); RDW 13.2 % (11.5-15.5); WBC 3.3 k/uL (3.8-10.6)
[2021-07-15 07:32] LABS: African American GFR (CKD) 60 (>60 ml/min/1.73 sqM); Albumin 2.8 g/dL (3.5-5.0); Anion Gap 4 mmol/L; Blood Urea Nitrogen 23 mg/dL (9-20); Calcium 9.6 mg/dL (8.4-10.2); Carbon Dioxide 27 mmol/L (22-30); Chloride 103 mmol/L (98-107); Glucose 117 mg/dL (74-99); Non-African American GFR(CKD) 52 (>60 ml/min/1.73 sqM); Potassium 4.1 mmol/L (3.5-5.1); Sodium 134 mmol/L (137-145); Total Protein 5.6 g/dL (6.3-8.2)
[2021-07-15 07:33] LABS: ALT 10 U/L (4-49); AST 29 U/L (17-59); Alkaline Phosphatase 46 U/L (38-126); Globulin 2.8 g/dL; Total Bilirubin 0.8 mg/dL (0.2-1.3)
[2021-07-15 07:36] LABS: Glucose,Whole Blood 140 mg/dL (75-99)
[2021-07-15] MEDS: HEPARIN SODIUM,PORCINE/PF 5,000 UNIT/0.5 ML SYRINGE SQ SCH ×2 (07:40→21:05)
[2021-07-15] MEDS: THIAMINE 100 MG TAB PO SCH (07:40)
[2021-07-15] MEDS: AMIODARONE 200 MG TAB PO SCH (07:40)
[2021-07-15] MEDS: SPIRONOLACTONE 25 MG TAB PO SCH (07:40)
[2021-07-15] MEDS: ASPIRIN 325 MG TAB PO SCH (07:41)
[2021-07-15] MEDS: carvediloL 12.5 MG TAB PO SCH (07:41)
[2021-07-15] MEDS: metFORMIN 500 MG TAB PO SCH (07:41)
[2021-07-15 12:16] LABS: Glucose,Whole Blood 140 mg/dL (75-99)
[2021-07-15] MEDS ORDERED: SODIUM CHLORIDE 0.9% 1,000 ML IV ONE (13:22)
--- NOTE | 2021-07-15 14:24 | P.DS ---
Providers Date of admission: 07/12/21 20:43 Attending physician: Lauren Rosales Consults: 07/12/21 20:48 Consult Physician Routine Consulting Provider: Mark Barcenas Consult Reason/Comments: Altered mental status history of dementia Do you want consulting provider notified?: Yes Primary care physician: [facility] Course: Final Diagnosis Altered mental status and wobbly gait at home. Brain CT positive for subacute infarct in the left parietal lobe. Hypovolemic hyponatremia Hypomagnesemia Diabetes type 2 [id number], A1c 7.5 Severe ischemic cardiomyopathy 30% status post biventricular ICD pacer Coronary artery disease history of CABG History of complete heart block Dementia Persistent atrial fibrillation on anticoagulation with xarelto DVT prophylaxis. Discharge disposition Patient is discharged to rehab. Per neurology recommendations patient will have a Xarelto on hold and will increase his dose of pravastatin and aspirin on discharge. We did discontinue the metformin and start patient on Jiardiance. Follow-up with neurology outpatient. Repeat CBC. Hospital course This is a pleasant 86-year-old male with a known history of dementia, diabetes mellitus type 2 uncontrolled with an A1c of 7.5, severe ischemic cardiomyopathy and sustained V. tach status post biventricular AICD placement, history of complete heart block, atrial fibrillation persistent maintained on Xarelto, coronary disease with CABG, anticoagulation with Xarelto and other multiple medical problems. Patient was brought to the hospital with family due to altered mental status as well as with RG and wobbly gait. Patient was unable to recognize family members and was bumping into [place] at home. There was no slurred speech no focal weakness and no seizures noted. Patient does not have any cough or sputum production. There is no fever or chills. Patient is alert and oriented 1 this admission, he is a poor historian. On admission brain CT showed cerebral atrophy with chronic small ischemia there was no acute intracranial abnormality noted. Extremities on the right fascia degenerative hypertrophic changes. Chest x-ray showed cardiomegaly. EKG showed ventricular paced rhythm. Labs on admission showed a white blood cell, 4.4, hemoglobin 12.5 and platelets of 176, sodium 134, potassium 4.2, chloride 101, BUN 26, creatinine 1.25 and a blood sugar 50, magnesium 1.4. Urinalysis was negative for infection, influenza and Covid PCR not detected. Neurology was on the patient and ordered a repeat brain CT which shows subtle diminished density within the posterior lateral parietal lobe suspicious for developing infarct. Patient did sustain a fall this admission and a repeat brain CT was ordered as patient does take Xarelto. The brain CT was negative for any acute bleed however redemonstrated a subacute left posterior temporal lobe infarct. Echocardiogram showed an EF of 30-35%, with hypokinesis in the left ventricle wall, mild mitral regurgitation and mild tricuspid regurgitation. This appears improved compared to echo completed in July 2020 which showed an EF of 20- 25% with global hypokinesis. Carotid Doppler shows borderline narrowing of essentially 50% within the left ICA. B12 and folate are within normal limits. Lipid panel shows an HDL 36, cholesterol 130, triglyceride 84 and LDL 77. Hemoglobin A1c is 7.5. Neurology did recommend patient increase his pravastatin to 20 mg by mouth daily and aspirin 375 daily. He did recommend stopping the xarelto to avoid a hemorrhagic conversion. An EEG is still pending. Vital signs this admission show a blood pressure 120s over 50s, afebrile, on room air. 07/15/2021 Patient is evaluated today, he is oriented 1. There is no focal weakness noted. He is status post EEG. Blood pressures on the lower side 99/58, we did transition patient from Coreg to metoprolol. He is afebrile, sinus bradycardia 49, 98% on room air. Patient denies any chest pain, chest pressure, palpitations, denies any cough or shortness of breath. He denies any nausea vomiting or diarrhea. Lungs are clear to auscultation. Abdomen is soft and nontender. Pending EEG and clearance from neurology patient can be cleared medically for discharge to rehab. We will discuss with neurology when to resume Xarelto. Please see medication reconciliation for list of current medications. Thank you for allowing us to participate in the care of this patient. Patient Condition at Discharge: Fair Plan - Discharge Summary New Discharge Prescriptions: New Empagliflozin [Jardiance] 10 mg PO DAILY #3 tablet Metoprolol Tartrate [Lopressor] 100 mg PO BID tab QUEtiapine FUMARATE [SEROquel] 25 mg PO HS PRN #3 tablet PRN Reason: Agitation Acetaminophen Tab [Tylenol] 650 mg PO Q6HR PRN tab PRN Reason: Mild Pain Or Fever > 100.5 Pravastatin Sodium [Pravachol] 20 mg PO HS tab Continue Rivaroxaban [Xarelto] 20 mg PO W/SUPPER Thiamine [Vitamin B-1] 100 mg PO DAILY #30 tab Spironolactone [Aldactone] 25 mg PO DAILY #90 tablet Amiodarone [Cordarone] 200 mg PO BID Discontinued Carvedilol [Coreg] 25 mg PO BID metFORMIN HCL [Glucophage] 500 mg PO BID-W/MEALS Pravastatin Sodium [Pravachol] 10 mg PO HS #90 tab Discharge Medication List Rivaroxaban [Xarelto] 20 mg PO W/SUPPER 07/23/20 [History] Thiamine [Vitamin B-1] 100 mg PO DAILY #30 tab 07/28/20 [Rx] Spironolactone [Aldactone] 25 mg PO DAILY #90 tablet 11/12/20 [Rx] Amiodarone [Cordarone] 200 mg PO BID 07/12/21 [History] Acetaminophen Tab [Tylenol] 650 mg PO Q6HR PRN tab 07/15/21 [Rx] Empagliflozin [Jardiance] 10 mg PO DAILY #3 tablet 07/15/21 [Rx] Metoprolol Tartrate [Lopressor] 100 mg PO BID tab 07/15/21 [Rx] Pravastatin Sodium [Pravachol] 20 mg PO HS tab 07/15/21 [Rx] QUEtiapine FUMARATE [SEROquel] 25 mg PO HS PRN #3 tablet 07/15/21 [Rx] Follow up Appointment(s)/Referral(s): None,Stated [REFERRING] - 1-2 days [facility],Clinic [Primary Care Provider] - 1 Week Jakub Tucker MD [REFERRING] - 1 Week Ambulatory/Diagnostic Orders: Complete Blood Count w/diff [LAB.AMB] Time Frame: 2 Days, Location: None Selected Discharge Disposition: TRANSFER TO SNF/ECF
[2021-07-15] MEDS: MAGNESIUM SULFATE-D5W PMX 1 GM in DEXTROSE/WATER 1 100ML.BAG IVPB SCH ×2 (16:27→17:55)
--- NOTE | 2021-07-15 16:49 | XR ---
EXAMINATION TYPE: XR chest 1V portable DATE OF EXAM: 07/15/2021 COMPARISON: 07/12/2021 HISTORY: Short of breath TECHNIQUE: Single view FINDINGS: Heart is enlarged. There is left axillary pacemaker. There are sternal wires. There is no h eart failure nor confluent pneumonic infiltrate. Thoracic aorta is atheromatous. IMPRESSION: Mild cardiomegaly. No active cardiopulmonary disease. No change.
[2021-07-15 18:00] LABS: Glucose,Whole Blood 166 mg/dL (75-99)
[2021-07-15 20:06] LABS: Glucose,Whole Blood 154 mg/dL (75-99)
--- NOTE | 2021-07-15 20:51 | EEG ---
ELECTROENCEPHALOGRAM REPORT DATE OF SERVICE: 07/15/2021 PREAMBLE: This is an 86-year-old male with altered mental status. This study is performed to evaluate for any epileptiform activity. EEG FINDINGS: This is a 21-channel digital EEG recorded with video competent, utilizing 10/20 international system with referential and bipolar montages. Background consists of moderately well-developed and regulated, mixed frequencies of somewhat low voltage mixed 9-10 hertz alpha with some low amplitude 4-6 hertz theta activity seen in bihemispheric regions. Background seems to be slightly reactive to eye opening and closing. Some myogenic activity was seen intermittently during this study. Photic stimulation and hyperventilation were not performed. Some stage II sleep was seen with presence of sleep spindles. No focal or generalized epileptiform activity was seen. IMPRESSION: This is mildly abnormal EEG due to background slowing of mild degree. This is suggestive of generalized cerebral dysfunction as can be seen with encephalopathy related to metabolic, vascular or degenerative causes. No epileptiform activity was seen. MMODL / IJN: [id number] /
[2021-07-15] MEDS: METOPROLOL TARTRATE 50 MG TAB PO SCH (21:00)
[2021-07-15] MEDS: PRAVASTATIN SODIUM 20 MG TAB PO SCH (21:05)
[2021-07-16 06:40] LABS: Basophils % (A) 0 %; Eosinophils # (A) 0.1 k/uL (0-0.7); Eosinophils % (A) 2 %; HCT 33.1 % (39.0-53.0); HGB 11.1 gm/dL (13.0-17.5); Lymphocytes % (A) 26 %; MCH 29.6 pg (25.0-35.0); MCHC 33.4 g/dL (31.0-37.0); MCV 88.5 fL (80.0-100.0); Mean Platelet Volume 7.7; Monocytes # (A) 0.2 k/uL (0-1.0); Monocytes % (A) 6 %; Neutrophils # (A) 2.5 k/uL (1.3-7.7); Neutrophils % (A) 63 %; Platelet Count 147 k/uL (150-450); RBC 3.74 m/uL (4.30-5.90)
[2021-07-16 08:05] LABS: Glucose,Whole Blood 100 mg/dL (75-99)
[2021-07-16] MEDS ORDERED: AMIODARONE 200 MG TAB PO SCH (09:00)
[2021-07-16] MEDS: SPIRONOLACTONE 25 MG TAB PO SCH (09:31)
[2021-07-16] MEDS: HEPARIN SODIUM,PORCINE/PF 5,000 UNIT/0.5 ML SYRINGE SQ SCH (09:32)
[2021-07-16] MEDS: METOPROLOL TARTRATE 50 MG TAB PO SCH ×2 (09:33→09:57)
[2021-07-16] MEDS: ASPIRIN 325 MG TAB PO SCH (09:33)
[2021-07-16] MEDS: THIAMINE 100 MG TAB PO SCH (09:34)
[2021-07-16 12:15] LABS: Glucose,Whole Blood 97 mg/dL (75-99)
[2021-07-16 12:49] VITALS: BP 116/64; PULSE 81; RESP 16; TEMP 97.7
--- NOTE | 2021-07-16 13:05 | P.PN ---
Subjective Progress Note Date: 07/15/21 Principal diagnosis: Altered mental status Acute CVA Patient is a 86-year-old male with a known history of dementia, diabetes type 2, severe ischemic cardiomyopathy and sustained VT status post biventricular AICD placement, history of complete heart block, atrial fibrillation persistent, coronary disease with CABG, anticoagulation with xarelto and other multiple medical problems was brought to the hospital by family due to altered mental status. Patient has been more lethargic and trouble recognizing family request. Patient was having wobbly gait and was able to bump into the wall at home. No slurred speech. No focal weakness. No seizures noted at home. Patient does not have any cough or sputum production. No fever or chills. Patient is a poor historian and could not provide a reliable history. On admission CT head showed cerebral atrophy. Chronic small ischemia. No acute intracranial abnormality noted. Extremities the right foot showed degenerative hypertrophic changes. No fractures. Chest x-ray showed cardiomegaly. Artificial increased compatible exam. No heart failure seen. EKG showed ventricular pacer rhythm. XL laboratory data showed WBC 4.4 hemoglobin 12.5 and platelets 176 Sodium 134 potassium 4.2 chloride 101, BUN 26 and creatinine 1.25 and blood sugar 150 and magnesium 1.4 Urinalysis is negative for infection. Influenza and COVID-19 PCR not detected. 07/14/2021 Patient is currently resting in the bed. Able to communicate with the family via telephone. No complaints of chest pain or shortness breath. No palpitations. No headache or dizziness or lightheadedness. Patient was having wobbling gait as per nursing staff and swaying to the right. Patient otherwise denied any fever or chills. No cough or sputum production. No dysuria or hematuria. Neurology is following. Current medications reviewed. Repeat CT brain showed subtle diminished density within the posterior later parietal lobe suspicious for developing infarct. 07/15/2021 Patient is alert and oriented 1 at the time of examination. Neurology is on board and has recommended to hold xarelto as patient had a fall yesterday. Repeat brain CT is negative for any acute bleed, redemonstrates a subacute left posterior temporal lobe infarct which is new compared to 07/12/2021. Echocardiaogram showed an EF of 30-35%, with hypokinesis in the left ventricle wall, mild mitral regurgitation and mild tricuspid regurgitation. This appears improved compared to echo completed in July 2020 which showed an EF of 20- 25% with global hypokinesis. Carotid Doppler shows borderline narrowing of essentially 50% within the left ICA. B12 and folate are within normal limits. Lipid panel shows an HDL 36, cholesterol 130, triglyceride 84 and LDL 77. Hemoglobin A1c is 7.5. ROS Constitutional: Denied any fatigue denied any fever. Cardio vascular: denied any chest pain, palpitations Gastrointestinal denied any nausea vomiting Pulmonary: Denied any shortness of breath cough Neurologic denied any new focal deficits All inpatient medications were reviewed and appropriate changes in these medications as dictated in the interval history and assessment and plan. PHYSICAL EXAMINATION: GENERAL: The patient is alert and oriented x1, not in any acute distress. Well developed, well nourished. HEENT: Pupils are round and equally reacting to light. EOMI. No scleral icterus. No conjunctival pallor. Normocephalic, atraumatic. No pharyngeal erythema. No thyromegaly. CARDIOVASCULAR: S1 and S2 Present with PVCs PULMONARY: Chest is clear to auscultation, no wheezing or crackles. ABDOMEN: Soft, nontender, nondistended, normoactive bowel sounds. No palpable organomegaly. MUSCULOSKELETAL: No joint swelling or deformity. EXTREMITIES: No cyanosis, clubbing, or pedal edema. NEUROLOGICAL: Gross neurological examination did not reveal any focal deficits. SKIN: No rashes. Assessment and Plan Assessment Altered mental status and wobbly gait at home Subacute left posterior temporal infarct Hypovolemic hyponatremia Hypomagnesemia, repleted Diabetes type 2 [id number] Severe ischemic cardiomyopathy 30% status post biventricular ICD pacer Coronary artery disease history of CABG History of complete heart block Dementia Persistent atrial fibrillation on anticoagulation with xarelto s/p ICD pacemaker DVT prophylaxis. xarelto O/H due to fall in hospital Plan: Hold Xarelto per neurology , will follow up with neurology when would it be okay to resume. Give 1L bolus for hypotension, monitor vitals closely Replace lytes per protocol Interrogate pacemaker due to bradycardia, EKG showing VPACE rhythm with bigeminy F/U cardiology outpatient Objective - Vital Signs Vital signs: Vital Signs Temp 97.8 F 07/15/21 05:00 Pulse 49 L 07/15/21 05:00 Resp 16 07/15/21 05:00 BP 99/58 07/15/21 05:00 Pulse Ox 98 07/15/21 05:00 Intake & Output 07/14/21 07/15/21 07/15/21 18:59 06:59 18:59 Intake Total 500 Balance 500 Intake: Oral 500 Other: Voiding Method Toilet Toilet Diaper Diaper # Voids 4 3 - Labs CBC & Chem 7: 07/16/21 06:12 07/15/21 06:28 Labs: Abnormal Lab Results - Last 24 Hours (Table) 07/14/21 07/14/21 07/15/21 Range/Units 17:16 17:16 06:28 WBC 3.3 L (3.8-10.6) k/uL RBC 3.66 L (4.30-5.90) m/uL Hgb 11.0 L (13.0-17.5) gm/dL Hct 31.3 L (39.0-53.0) % Sodium (137-145) mmol/L BUN (9-20) mg/dL Glucose (74-99) mg/dL POC Glucose (mg/dL) (75-99) mg/dL Hemoglobin A1c 7.5 H (4.0-6.0) % Total Protein (6.3-8.2) g/dL Albumin (3.5-5.0) g/dL HDL Cholesterol 36.10 L (40.00-60.00) mg/dL 07/15/21 07/15/21 Range/Units 06:28 07:34 WBC (3.8-10.6) k/uL RBC (4.30-5.90) m/uL Hgb (13.0-17.5) gm/dL Hct (39.0-53.0) % Sodium 134 L (137-145) mmol/L BUN 23 H (9-20) mg/dL Glucose 117 H (74-99) mg/dL POC Glucose (mg/dL) 140 H (75-99) mg/dL Hemoglobin A1c (4.0-6.0) % Total Protein 5.6 L (6.3-8.2) g/dL Albumin 2.8 L (3.5-5.0) g/dL HDL Cholesterol (40.00-60.00) mg/dL Microbiology - Last 24 Hours (Table) 07/12/21 15:59 Blood Culture - Preliminary Blood No Growth after 48 hours Assessment and Plan Time with Patient: Greater than 30
--- NOTE | 2021-07-16 14:21 | CT ---
EXAMINATION TYPE: CT brain wo con DATE OF EXAM: 07/16/2021 COMPARISON: 07/14/2021 HISTORY: Follow up scan. patient has difficulty following directions CT DLP: 2880 mGycm Automated exposure control for dose reduction was used. FINDINGS: Intracranial atherosclerotic changes are seen. Exam is severely limited due to extreme motion artifac t. Generalized degenerative change of low attenuation in the white matter noted. No midline shift. Mo re localized area of low attenuation in the left parietal lobe may be on the basis of recent its isch emia. Craniocervical junction maintained. Minimal changes of left-sided mastoiditis. Suspect a recent infarct in the left temporal lobe. IMPRESSION: 1. Findings are suggestive of a recent infarct in the left temporal lobe. Acute ischemia in the diffe rential diagnosis. Findings similar to prior exam. 2. Degenerative and extensive nonspecific white matter changes most typical remote ischemia. 3. Localized area of low attenuation posterior left parietal lobe also may represent an area of recen t ischemia correlate clinically.
--- NOTE | 2021-07-16 15:34 | P.DS ---
Providers Date of admission: 07/12/21 20:43 Attending physician: Lauren Rosales Consults: 07/12/21 20:48 Consult Physician Routine Consulting Provider: Mark Barcenas Consult Reason/Comments: Altered mental status history of dementia Do you want consulting provider notified?: Yes Primary care physician: [facility] Course: Final Diagnosis Altered mental status and wobbly gait at home. Brain CT positive for subacute infarct in the left parietal lobe Hypovolemic hyponatremia Hypomagnesemia Diabetes type 2 [id number], A1c 7.5 Severe ischemic cardiomyopathy 30% status post biventricular ICD pacer Coronary artery disease history of CABG History of complete heart block Dementia Persistent atrial fibrillation on anticoagulation with xarelto DVT prophylaxis. Discharge disposition Patient is discharged to rehab. Per neurology recommendations patient can resume home dose of Xarelto today after repeat brain CT to confirm there is no hemorrhage and will increase his dose of pravastatin on discharge. We did discontinue the metformin and start patient on Jiardiance. Follow-up with neurology outpatient. Patient will also need to follow up with Hospital course This is a pleasant 86-year-old male with a known history of dementia, diabetes mellitus type 2 uncontrolled with an A1c of 7.5, severe ischemic cardiomyopathy and sustained V. tach status post biventricular AICD placement, history of complete heart block, atrial fibrillation persistent maintained on Xarelto, coronary disease with CABG, anticoagulation with Xarelto and other multiple medical problems. Patient was brought to the hospital with family due to altered mental status as well as with RG and wobbly gait. Patient was unable to recognize family members and was bumping into [place] at home. There was no slurred speech no focal weakness and no seizures noted. Patient does not have any cough or sputum production. There is no fever or chills. Patient is alert and oriented 1 this admission, he is a poor historian. On admission brain CT showed cerebral atrophy with chronic small ischemia there was no acute intracranial abnormality noted. Extremities on the right fascia degenerative hypertrophic changes. Chest x-ray showed cardiomegaly. EKG showed ventricular paced rhythm. Labs on admission showed a white blood cell, 4.4, hemoglobin 12.5 and platelets of 176, sodium 134, potassium 4.2, chloride 101, BUN 26, creatinine 1.25 and a blood sugar 50, magnesium 1.4. Urinalysis was negative for infection, influenza and Covid PCR not detected. Neurology was on the patient and ordered a repeat brain CT which shows subtle diminished density within the posterior lateral parietal lobe suspicious for developing infarct. Patient did sustain a fall this admission and a repeat brain CT was ordered as patient does take Xarelto. The brain CT was negative for any acute bleed however redemonstrated a subacute left posterior temporal lobe infarct. Echocardiogram showed an EF of 30-35%, with hypokinesis in the left ventricle wall, mild mitral regurgitation and mild tricuspid regurgitation. This appears improved compared to echo completed in July 2020 which showed an EF of 20- 25% with global hypokinesis. Carotid Doppler shows borderline narrowing of essentially 50% within the left ICA. B12 and folate are within normal limits. Lipid panel shows an HDL 36, cholesterol 130, triglyceride 84 and LDL 77. Hemoglobin A1c is 7.5. Neurology did recommend patient increase his pravastatin to 20 mg by mouth daily and aspirin 375 daily. He did recommend stopping the xarelto to avoid a hemorrhagic conversion initially. EEG was negative for any epileptiform activity, there was suggestion of generalized cerebral dysfunction as can be seen with encephalopathy related to metabolic, vascular, or degenerative causes. Vital signs this admission show a blood pressure 120s/50s, afebrile, on room air. Repeat brain CT without contrast was completed to rule out hemorrhagic bleed status post fall 2 days ago in order to resume Xarelto. 07/15/2021 Patient is evaluated today, he is oriented 1. There is no focal weakness noted. He is status post EEG. Blood pressures on the lower side 99/58, we did transition patient from Coreg to metoprolol. He is afebrile, sinus bradycardia 49, 98% on room air. Patient denies any chest pain, chest pressure, palpitations, denies any cough or shortness of breath. He denies any nausea vomiting or diarrhea. Lungs are clear to auscultation. Abdomen is soft and nontender. Pending EEG and clearance from neurology patient can be cleared medically for discharge to rehab. Repeat brain CT was completed today which redemonstrated subacute infarct there is no signs of an acute hemorrhage. Per neurology we can resume Xarelto. Please see medication reconciliation for list of current medications. Thank you for allowing us to participate in the care of this patient. Patient Condition at Discharge: Fair Plan - Discharge Summary New Discharge Prescriptions: New Empagliflozin [Jardiance] 10 mg PO DAILY #3 tablet QUEtiapine FUMARATE [SEROquel] 25 mg PO HS PRN #3 tablet PRN Reason: Agitation Acetaminophen Tab [Tylenol] 650 mg PO Q6HR PRN tab PRN Reason: Mild Pain Or Fever > 100.5 Rivaroxaban [Xarelto] 20 mg PO W/SUPPER #30 tab Pravastatin Sodium [Pravachol] 20 mg PO HS tab Metoprolol Tartrate [Lopressor] 75 mg PO BID #60 tablet Amiodarone [Cordarone] 200 mg PO DAILY #30 tab Continue Thiamine [Vitamin B-1] 100 mg PO DAILY #30 tab Spironolactone [Aldactone] 25 mg PO DAILY #90 tablet Discontinued Rivaroxaban [Xarelto] 20 mg PO W/SUPPER Carvedilol [Coreg] 25 mg PO BID metFORMIN HCL [Glucophage] 500 mg PO BID-W/MEALS Pravastatin Sodium [Pravachol] 10 mg PO HS #90 tab Amiodarone [Cordarone] 200 mg PO BID Discharge Medication List Thiamine [Vitamin B-1] 100 mg PO DAILY #30 tab 07/28/20 [Rx] Spironolactone [Aldactone] 25 mg PO DAILY #90 tablet 11/12/20 [Rx] Acetaminophen Tab [Tylenol] 650 mg PO Q6HR PRN tab 07/15/21 [Rx] Empagliflozin [Jardiance] 10 mg PO DAILY #3 tablet 07/15/21 [Rx] Pravastatin Sodium [Pravachol] 20 mg PO HS tab 07/15/21 [Rx] QUEtiapine FUMARATE [SEROquel] 25 mg PO HS PRN #3 tablet 07/15/21 [Rx] Amiodarone [Cordarone] 200 mg PO DAILY #30 tab 07/16/21 [Rx] Metoprolol Tartrate [Lopressor] 75 mg PO BID #60 tablet 07/16/21 [Rx] Rivaroxaban [Xarelto] 20 mg PO W/SUPPER #30 tab 07/16/21 [Rx] Follow up Appointment(s)/Referral(s): Andrea Diaz MD [STAFF PHYSICIAN] - 1 Week (for pacemaker) Jakub Tucker MD [REFERRING] - 1 Week None,Stated [REFERRING] - 1-2 days [facility],Clinic [Primary Care Provider] - 1 Week Ambulatory/Diagnostic Orders: Basic Metabolic Panel [LAB.AMB] Time Frame: 2 Days, Location: None Selected Complete Blood Count w/diff [LAB.AMB] Time Frame: 2 Days, Location: None Selected Discharge Disposition: TRANSFER TO SNF/ECF
[2021-07-16 16:23] LABS: Anion Gap 11.4 mmol/L (4.00-12.00); BUN/Creat Ratio 16.29 Ratio (12.00-20.00); Blood Urea Nitrogen 22.8 mg/dL (9.0-27.0); Calcium 9.3 mg/dL (8.7-10.3); Carbon Dioxide 21.6 mmol/L (21.6-31.8); Non-African American GFR(CKD) 44.9 (60.0-200.0); Potassium 4.4 mmol/L (3.5-5.5)
[2021-07-16 17:17] LABS: Glucose,Whole Blood 150 mg/dL (75-99)
--- NOTE | 2021-07-16 21:27 | P.PN ---
Subjective Progress Note Date: 07/16/21 Patient was seen for a follow-up. Patient initially seen by Dr. Mark Barcenas. Please refer to his note for details. Patient has history of dementia, history of pacemaker, CHF. Patient was on Pradaxa. Patient came to the hospital with altered mental status. Patient was diagnosed with an acute stroke involving the left parietal temporal region. Patient was on anticoagulation, which was held by Dr. Barcenas because of risk of hemorrhagic conversion. Patient is laying comfortably in the bed. He calls himself as "Betito", although his name is Mich. Patient has some expressive aphasia. Objective - Vital Signs Vital signs: Vital Signs Temp 97.7 F 07/16/21 12:13 Pulse 81 07/16/21 12:13 Resp 16 07/16/21 12:13 BP 116/64 07/16/21 12:13 Pulse Ox 93 L 07/16/21 12:13 Intake & Output 07/16/21 07/16/21 07/17/21 06:59 18:59 06:59 Other: Voiding Method Toilet Toilet Diaper Diaper Incontinent Incontinent # Voids 6 5 - Exam Patient is alert and awake. Patient has expressive aphasia. Able to speak certain words like "glasses", could not name a pen or the knuckles. He can repeat. Patient's muscle strength is normal in the arms and legs. Face is symm etric. Tongue protrudes the midline. Patient is very hard of hearing. WORK-UP: WBC is 4.4 thousand. AST is 24, ALT of 12, ammonia is less than 9. Urinalysis seems that he is negative for urinary tract infection. Serum alcohol level is less than 10 Daniels virus PCR was not detected. Influenza A and B PCR was not detected. CT of the head is reported as cerebral atrophy. Chronic small vessel ischemia. No acute intracranial abnormality. Personally reviewed the CT of the head and there is no evidence of acute or subacute ischemia or no into parenchymal hemorrhage that was able to appreciate Carotid Duplex was reported as bathroom as plaquing without significant flow limiting stenosis. There is borderline narrowing at essentially 50% based on the velocities within the left internal carotid artery. 2-D echo was reported as left ventricle size is normal. Left Ventricular wall thickness is normal. Ejection fraction of 30-35%. Motion wall hypokinetic over the apical anterior left ventricle as well as mild anteroseptal. Right foot x-ray was reported as degenerative hypertrophic changes. No fracture. TSH: 7.33 - Labs CBC & Chem 7: 07/16/21 06:12 07/16/21 06:12 Labs: Abnormal Lab Results - Last 24 Hours (Table) 07/16/21 07/16/21 07/16/21 Range/Units 06:12 06:12 07:36 RBC 3.74 L (4.30-5.90) m/uL Hgb 11.1 L (13.0-17.5) gm/dL Hct 33.1 L (39.0-53.0) % Plt Count 147 L (150-450) k/uL Est GFR (CKD-EPI)AfAm 52.0 L (60.0-200.0) Est GFR (CKD-EPI)NonAf 44.9 L (60.0-200.0) POC Glucose (mg/dL) 100 H (75-99) mg/dL 07/16/21 Range/Units 17:16 RBC (4.30-5.90) m/uL Hgb (13.0-17.5) gm/dL Hct (39.0-53.0) % Plt Count (150-450) k/uL Est GFR (CKD-EPI)AfAm (60.0-200.0) Est GFR (CKD-EPI)NonAf (60.0-200.0) POC Glucose (mg/dL) 150 H (75-99) mg/dL Microbiology - Last 24 Hours (Table) 07/12/21 15:59 Blood Culture - Preliminary Blood No Growth after 96 hours Assessment and Plan Assessment: * Acute to subacute ischemic stroke involving the left parietal temporal region, likely embolic from atrial fibrillation. * Reported history of dementia * Mild left ICA stenosis (50% per carotid duplex) * Congestive heart failure ejection fraction of 30-35% on recent echo * Pacemaker * On Xarelto (per family member started by Cardiology team) Plan: * Patient had a repeat computed tomography scan of head performed today, which revealed subacute ischemia involving the left temporal and parietal lobes. No hemorrhagic conversion. May resume anticoagulation with Xarelto at this time. Would recommend stopping the antiplatelet medications when anticoagulation is started. * MRI cannot be checked because of pacemaker. * Vitamin B12 447, folate is low 7.0, will start oral B12 and folate re placement. * EEG was mildly abnormal due to background slowing of mild degree. This is suggestive of generalized cerebral dysfunction as can be seen with encephalopathy related to metabolic, vascular or degenerative causes. No epileptiform activity was seen. * Consulted PT, OT and DENTAL APPLIANCE MECHANIC * Neurologically clear for discharge. Discussed with primary team.
[2021-07-16] MEDS ORDERED: FOLIC ACID 1 MG TAB PO SCH (21:45)
[2021-07-16] MEDS ORDERED: CYANOCOBALAMIN 500 MCG TAB PO SCH (21:45)
== END 2021-07-16 19:30 | DRG 65 ==
LOC: SUPCPDRO 15:18 → EC 15:18 → 5NMEDONC 20:43
PROVIDERS: ADMIT Internal Medicine; ATTEND Internal Medicine
DX: I63.40 Cerebral infarction due to embolism of unspecified cerebral artery (principal); E87.1 Hypo-osmolality and hyponatremia; F05 Delirium due to known physiological condition; G93.40 Encephalopathy, unspecified; I48.19 Other persistent atrial fibrillation; I44.2 Atrioventricular block, complete; I47.2 Ventricular tachycardia; Z20.822 Contact with and (suspected) exposure to COVID-19; E11.9 Type 2 diabetes mellitus without complications; R47.01 Aphasia; E83.42 Hypomagnesemia; E86.0 Dehydration; E86.1 Hypovolemia; F03.90 Unspecified dementia, unspecified severity, without behavioral disturbance, psychotic disturbance, mood disturbance, and anxiety; I25.10 Atherosclerotic heart disease of native coronary artery without angina pectoris; I25.5 Ischemic cardiomyopathy; I65.22 Occlusion and stenosis of left carotid artery; Z79.01 Long term (current) use of anticoagulants; Z79.82 Long term (current) use of aspirin; Z79.84 Long term (current) use of oral hypoglycemic drugs; Z95.1 Presence of aortocoronary bypass graft; Z87.891 Personal history of nicotine dependence; Z95.0 Presence of cardiac pacemaker; Z79.899 Other long term (current) drug therapy; I50.9 Heart failure, unspecified
CPT/HCPCS: 36415; 70450; 71045; 71046; 80048; 80053; 80061; 80320; 81001; 82140; 82550; 82607; 82746; 83036; 83605; 83735; 83880; 84439; 84443; 84484; 85025; 87040; 87636; 90715; 93005; 93306; 93880; 95816

== ENCOUNTER 2021-07-30 14:46 | Inpatient (IN) | payer MEDICARE ==
[2021-07-30] MEDS ORDERED: ACETAMINOPHEN TAB 500 MG TAB PO STA (15:34)
--- NOTE | 2021-07-30 15:52 | ED ---
General Adult HPI - General Chief complaint: Fall Stated complaint: Fall Time Seen by Provider: 07/30/21 14:50 Source: patient, EMS, RN notes reviewed, old records reviewed Mode of arrival: EMS Limitations: altered mental status - History of Present Illness Initial comments: This is an 86-year-old male who presents emergency Department after having been found on the ground. Patient was at his baseline but when they called the doctor's doctor wanted to be brought to the emergency department to be evaluated. Patient's only alert and oriented times one which is his baseline so he is of no help there is no caregiver with the patient and there is no family member with the patient. Patient's temperature was 100.0 so he will be worked up for possible infection as well. - Related Data Home Medications Medication Instructions Recorded Confirmed Amiodarone [Cordarone] 200 mg PO DAILY@0900 07/30/21 07/30/21 Collagenase [Santyl] 1 applic TOPICAL DAILY PRN 07/30/21 07/30/21 Collagenase [Santyl] 1 applic TOPICAL HS 07/30/21 07/30/21 Empagliflozin [Jardiance] 10 mg PO DAILY@0900 07/30/21 07/30/21 Metoprolol Tartrate [Lopressor] 75 mg PO BID@0900,209907/30/21 07/30/21 Pravastatin Sodium [Pravachol] 20 mg PO HS@209907/30/21 07/30/21 QUEtiapine FUMARATE [SEROquel] 25 mg PO DAILY@0900 07/30/21 07/30/21 QUEtiapine [SEROquel] 50 mg PO HS@209907/30/21 07/30/21 Rivaroxaban [Xarelto] 20 mg PO HS@2100 07/30/21 07/30/21 Thiamine [Vitamin B-1] 100 mg PO DAILY@0900 07/30/21 07/30/21 Previous Rx's Medication Instructions Recorded Acetaminophen Tab [Tylenol] 650 mg PO Q6HR PRN tab 07/15/21 Allergies Allergy/AdvReac Type Severity Reaction Status Date / Time Penicillins Allergy Unknown Verified 07/30/21 16:26 Childhood Review of Systems ROS Statement: Those systems with pertinent positive or pertinent negative responses have been documented in the HPI. ROS Other: All systems not noted in ROS Statement are negative. Past Medical History Past Medical History: Dementia, Diabetes Mellitus, Memory Impairment Additional Past Medical History / Comment(s): see Dr Joe Fontenot&Franci, dementia, fell Aug 2019 and hit his head-sister in law states he was confused but refused to see doctor, urinary leakage History of Any Multi-Drug Resistant Organisms: None Reported Past Surgical History: Unable to Obtain, AICD, Pacemaker Additional Past Surgical History / Comment(s): sister law has no further information Past Anesthesia/Blood Transfusion Reactions: Unable to Obtain Additional Past Anesthesia/Blood Transfusion Reaction / Comment(s): sister in law(Marii) not sure of pt or his family Type of Cardiac Device: Permanent Pacemaker, AICD Device Placement Date:: unknown Past Psychological History: Unable to Obtain Smoking Status: Former smoker - Past Family History Father History Unknown: Yes Mother History Unknown: Yes Family Medical History: Unable to Obtain Brother(s) History Unknown: Yes Sister(s) History Unknown: Yes General Exam - General Exam Comments Initial Comments: GENERAL: Patient is well-developed and well-nourished. Patient is nontoxic and well- hydrated and is in no acute distress. ENT: Neck is soft and supple. No significant lymphadenopathy is noted. Oropharynx is clear. Moist mucous membranes. Neck has full range of motion without eliciting any pain. EYES: The sclera were anicteric and conjunctiva were pink and moist. Extraocular movements were intact and pupils were equal round and reactive to light. Eyelids were unremarkable. PULMONARY: Unlabored respirations. Good breath sounds bilaterally. No audible rales rhonchi or wheezing was noted. CARDIOVASCULAR: There is a regular rate and rhythm without any murmurs gallops or rubs. ABDOMEN: Soft and nontender with normal bowel sounds. SKIN: Multiple old skin tears NEUROLOGIC: Patient is alert and oriented times one. Cranial nerves II through XII are grossly intact. Motor and sensory are also intact. Normal speech, volume and content. Symmetrical smile. MUSCULOSKELETAL: Normal extremities with adequate strength and full range of motion. LYMPHATICS: No significant lymphadenopathy is noted PSYCHIATRIC: Normal psychiatric evaluation. Limitations: altered mental status Course Vital Signs 07/30/21 14:50 Temperature 100.0 F H Pulse Rate 60 Respiratory 16 Rate Blood Pressure 101/59 O2 Sat by Pulse 96 Oximetry Medical Decision Making - Medical Decision Making EKG shows paced rhythm at 60 bpm VA interval is 194 QRS is 180 QT interval is 494 QTC is 494. New. Chest x-ray shows no acute abnormality. Patient has a positive for COVID patient will receive monoclonal antibodies. Patient is not being admitted for COVID but the residential will not accept the patient. [facility] admitted the patient I wrote admitting orders. - Lab Data Result diagrams: 07/30/21 15:37 07/30/21 15:37 Lab Results 07/30/21 07/30/21 07/30/21 Range/Units 15:37 15:37 15:37 WBC 6.4 (3.8-10.6) k/uL RBC 3.82 L (4.30-5.90) m/uL Hgb 11.4 L (13.0-17.5) gm/dL Hct 32.4 L (39.0-53.0) % MCV 84.8 (80.0-100.0) fL MCH 29.7 (25.0-35.0) pg MCHC 35.1 (31.0-37.0) g/dL RDW 13.4 (11.5-15.5) % Plt Count 153 (150-450) k/uL MPV 7.9 Neutrophils % 79 % Lymphocytes % 12 % Monocytes % 6 % Eosinophils % 1 % Basophils % 0 % Neutrophils # 5.1 (1.3-7.7) k/uL Lymphocytes # 0.8 L (1.0-4.8) k/uL Monocytes # 0.4 (0-1.0) k/uL Eosinophils # 0.1 (0-0.7) k/uL Basophils # 0.0 (0-0.2) k/uL Sodium 129 L (137-145) mmol/L Potassium 5.5 H (3.5-5.1) mmol/L Chloride 100 (98-107) mmol/L Carbon Dioxide 18 L (22-30) mmol/L Anion Gap 11 mmol/L BUN 42 H (9-20) mg/dL Creatinine 1.68 H (0.66-1.25) mg/dL Est GFR (CKD-EPI)AfAm 42 (>60 ml/min/1.73 sqM) Est GFR (CKD-EPI)NonAf 36 (>60 ml/min/1.73 sqM) Glucose 132 H (74-99) mg/dL Calcium 9.6 (8.4-10.2) mg/dL Total Bilirubin 0.6 (0.2-1.3) mg/dL AST 33 (17-59) U/L ALT 18 (4-49) U/L Alkaline Phosphatase 60 (38-126) U/L Total Protein 7.0 (6.3-8.2) g/dL Albumin 3.8 (3.5-5.0) g/dL Urine Color Yellow Urine Appearance Clear (Clear) Urine pH 5.5 (5.0-8.0) Ur Specific [place] 1.024 (1.001-1.035) Urine Protein Trace H (Negative) Urine Glucose (UA) 4+ H (Negative) Urine Ketones Negative (Negative) Urine Blood Small H (Negative) Urine Nitrite Negative (Negative) Urine Bilirubin Negative (Negative) Urine Urobilinogen <2.0 (<2.0) mg/dL Ur Leukocyte Esterase Negative (Negative) Urine RBC <1 (0-5) /hpf Urine WBC <1 (0-5) /hpf Hyaline Casts 4 H (0-2) /lpf Urine Mucus Rare H (None) /hpf Coronavirus (PCR) (Not Detectd) 07/30/21 Range/Units 17:45 WBC (3.8-10.6) k/uL RBC (4.30-5.90) m/uL Hgb (13.0-17.5) gm/dL Hct (39.0-53.0) % MCV (80.0-100.0) fL MCH (25.0-35.0) pg MCHC (31.0-37.0) g/dL RDW (11.5-15.5) % Plt Count (150-450) k/uL MPV Neutrophils % % Lymphocytes % % Monocytes % % Eosinophils % % Basophils % % Neutrophils # (1.3-7.7) k/uL Lymphocytes # (1.0-4.8) k/uL Monocytes # (0-1.0) k/uL Eosinophils # (0-0.7) k/uL Basophils # (0-0.2) k/uL Sodium (137-145) mmol/L Potassium (3.5-5.1) mmol/L Chloride (98-107) mmol/L Carbon Dioxide (22-30) mmol/L Anion Gap mmol/L BUN (9-20) mg/dL Creatinine (0.66-1.25) mg/dL Est GFR (CKD-EPI)AfAm (>60 ml/min/1.73 sqM) Est GFR (CKD-EPI)NonAf (>60 ml/min/1.73 sqM) Glucose (74-99) mg/dL Calcium (8.4-10.2) mg/dL Total Bilirubin (0.2-1.3) mg/dL AST (17-59) U/L ALT (4-49) U/L Alkaline Phosphatase (38-126) U/L Total Protein (6.3-8.2) g/dL Albumin (3.5-5.0) g/dL Urine Color Urine Appearance (Clear) Urine pH (5.0-8.0) Ur Specific [place] (1.001-1.035) Urine Protein (Negative) Urine Glucose (UA) (Negative) Urine Ketones (Negative) Urine Blood (Negative) Urine Nitrite (Negative) Urine Bilirubin (Negative) Urine Urobilinogen (<2.0) mg/dL Ur Leukocyte Esterase (Negative) Urine RBC (0-5) /hpf Urine WBC (0-5) /hpf Hyaline Casts (0-2) /lpf Urine Mucus (None) /hpf Coronavirus (PCR) Detected A (Not Detectd) Disposition Clinical Impression: COVID-19, Fall, Hyponatremia, Hyperkalemia, Renal insufficiency Disposition: ADMITTED IP TO THIS [facility] Time of Disposition: 19:08
[2021-07-30 15:58] LABS: Basophils % (A) 0 %; Eosinophils # (A) 0.1 k/uL (0-0.7); Eosinophils % (A) 1 %; HCT 32.4 % (39.0-53.0); HGB 11.4 gm/dL (13.0-17.5); Lymphocytes # (A) 0.8 k/uL (1.0-4.8); Lymphocytes % (A) 12 %; MCH 29.7 pg (25.0-35.0); MCHC 35.1 g/dL (31.0-37.0); MCV 84.8 fL (80.0-100.0); Mean Platelet Volume 7.9; Monocytes # (A) 0.4 k/uL (0-1.0); Monocytes % (A) 6 %; Neutrophils # (A) 5.1 k/uL (1.3-7.7); Neutrophils % (A) 79 %; Platelet Count 153 k/uL (150-450); RBC 3.82 m/uL (4.30-5.90); RDW 13.4 % (11.5-15.5); WBC 6.4 k/uL (3.8-10.6)
--- NOTE | 2021-07-30 16:08 | CT ---
EXAMINATION TYPE: CT brain [facility] DATE OF EXAM: 07/30/2021 COMPARISON: CT brain 2 weeks earlier. HISTORY: Fall injury with headache and neck pain CT DLP: 1388.8 mGycm. Automated Exposure Control for Dose Reduction was Utilized. TECHNIQUE: CT scan of the head and cervical spine are performed without contrast. FINDINGS: There is no acute intracranial hemorrhage or midline shift identified. Moderate to severe ventricular and sulcal prominence. Moderate to severe low-attenuation in the deep and periventricula r white matter. Soft tissue density consistent with cerumen in the deep left external auditory canal redemonstrated. The calvarium is intact. Scleral calcification on the left. Bilateral lens calcificat ion. Visualized paranasal sinuses are clear. Cervical spine is visualized in its entirety from C1 through upper thoracic levels and demonstrates grade 1 anterolisthesis C3 on C4 without evidence of acute fracture or dislocation. Prevertebral sof t tissue appears within normal limits. The C1-C2 articulation is within normal limits on the coronal images. Osseous structures are demineralized. Vertebral body heights are maintained. Moderate to se catrina spurring and disc space narrowing C4-C5 and C5-C6 levels. Moderate to severe disc space narrowin g with moderate spurring C7-T1 level. Moderate disc space narrowing C6-C7 level. Posterior spur disc complexes at the anterior thecal sac at C7-T1 and to a greater degree at C4-C5 and C5-C6 levels. Axial images show multilevel uncovertebral facet degenerative changes contributing to multilevel bila teral neural foraminal narrowing greatest at right C3-C4 and left C4-C5 levels. Partial visualization of pacemaker wires along with sternal wires and mediastinal clips from CABG procedure. Thyroid gland appears within normal limits. Lung apices show no pneumothorax. IMPRESSION: 1. There is no acute fracture or dislocation evident in cervical spine. 2. No acute intracranial hemorrhage or midline shift. Moderate to severe diffuse cerebral atrophy and chronic small vessel ischemic change redemonstrated. No significant change from recent CT.
--- NOTE | 2021-07-30 16:10 | XR ---
EXAMINATION TYPE: XR chest 2V DATE OF EXAM: 07/30/2021 COMPARISON: Chest x-ray July 15, 2021 HISTORY: Dyspnea. TECHNIQUE: Frontal and lateral views of the chest are obtained. FINDINGS: There is chronic parenchymal change without suspicious focal air space opacity, pleural ef fusion, or pneumothorax seen. There is cardiomegaly with multi lead pacemaker redemonstrated. Overlyi ng Sternal wires and mediastinal clips redemonstrated. The osseous structures are redemonstrated dem ineralized. IMPRESSION: Cardiomegaly and chronic changes without acute pulmonary process.
[2021-07-30 16:12] LABS: Albumin 3.8 g/dL (3.5-5.0); Calcium 9.6 mg/dL (8.4-10.2); Potassium 5.5 mmol/L (3.5-5.1); Total Bilirubin 0.6 mg/dL (0.2-1.3)
[2021-07-30 16:56] LABS: Appearance,Urine Clear (Clear); Bilirubin,Urine Negative (Negative); Blood,Urine Small (Negative); Color,Urine Yellow; Glucose,Urine (UA) 4+ (Negative); Hyaline Casts,Urine 4 /lpf (0-2); Ketones,Urine Negative (Negative); Leukocyte Esterase,Urine Negative (Negative); Mucus,Urine Rare /hpf; Nitrite,Urine Negative (Negative); PH, Urine 5.5 (5.0-8.0); Protein,Urine Trace (Negative); RBC,Urine <1 /hpf (0-5); Specific Gravity,Urine 1.024 (1.001-1.035); Urobilinogen,Urine <2.0 mg/dL (<2.0); WBC,Urine <1 /hpf (0-5)
[2021-07-30] MEDS ORDERED: DEXAMETHASONE SOD PHOSPHATE 10 MG/ML 1 ML VIAL IVP STA (19:10)
[2021-07-30] MEDS ORDERED: SODIUM CHLORIDE 0.9% 50 ML IVPB ONE (19:30)
[2021-07-30] MEDS ORDERED: CASIRIVIMAB/IMDEVIMAB (EUA) 1,200 MG in SODIUM CHLORIDE 0.9% 100 ML IVPB ONE (19:30)
[2021-07-30] MEDS: SODIUM CHLORIDE 0.9% 1,000 ML IV SCH (19:38)
[2021-07-31] MEDS: SODIUM CHLORIDE 0.9% 1,000 ML IV SCH ×2 (08:39→22:26)
[2021-07-31] MEDS: dexAMETHasone 2 MG TAB PO SCH (08:39)
[2021-07-31] MEDS ORDERED: ACETAMINOPHEN TAB 325 MG TAB PO PRN (11:51)
--- NOTE | 2021-07-31 13:19 | P.HPIM ---
History of Present Illness 86-year-old male is transferred from [facility] after fall and patient is found to have Covid 19 pneumonia patient had low-grade temperature patient is not hypoxic at this time. Patient is alert oriented 0-1 which is his baseline. Never got any can of history from the patient patient is hyponatremic with elevated creatinine patient does have history of congestive heart failure still ischemic cardiomyopathy with EF 30% patient is presently hyponatremic appears to be hypovolemic not in heart failure exacerbation. REVIEW OF SYSTEMS: Unable to obtain due to his clinical condition PHYSICAL EXAMINATION: GENERAL: The patient is alert and oriented x1, not in any acute distress. Well developed, well nourished. HEENT: Pupils are round and equally reacting to light. EOMI. No scleral icterus. No conjunctival pallor. Normocephalic, atraumatic. No pharyngeal erythema. No thyromegaly. CARDIOVASCULAR: S1 and S2 present. No murmurs, rubs, or gallops. PULMONARY: Chest is clear to auscultation, no wheezing or crackles. ABDOMEN: Soft, nontender, nondistended, normoactive bowel sounds. No palpable organomegaly. MUSCULOSKELETAL: No joint swelling or deformity. EXTREMITIES: No cyanosis, clubbing, or pedal edema. NEUROLOGICAL: Unable to obtain SKIN: No rashes. Assessment and plan -Hypervolemic hyponatremia: Patient diarrhea is receiving gentle hydration which is appropriate which will be continued -Covid 19 infection patient chest x-ray did not show any significant infiltrate patient is not hypoxic at this time patient probably can be discharged if he can find a place that can accept him tomorrow. 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 and coronary artery disease -Advanced dementia: Supportive care -Persistent atrial fibrillation for which patient is on anti-correlation at Xarelto which will be continued DVT prophylaxis: On anticoagulation Past Medical History Past Medical History: Dementia, Diabetes Mellitus, Memory Impairment Additional Past Medical History / Comment(s): see Dr Krishen H&P, dementia, fell Aug 2019 and hit his head-sister in law states he was confused but refused to see doctor, urinary leakage History of Any Multi-Drug Resistant Organisms: None Reported Past Surgical History: Unable to Obtain, AICD, Pacemaker Additional Past Surgical History / Comment(s): sister has no further information Past Anesthesia/Blood Transfusion Reactions: Unable to Obtain Additional Past Anesthesia/Blood Transfusion Reaction / Comment(s): sister in law(Marii) not sure of pt or his family Type of Cardiac Device: Permanent Pacemaker, AICD Device Placement Date:: unknown Past Psychological History: Unable to Obtain Additional Psychological History / Comment(s): dementia. sister law(Marii) poor historian. states she is power of divorce attorney and moved them up from [place] to help care for them in past year. She is not sure of pts history/health information. Pt lives in [facility] assisted living with spouse. she states he has memory loss and confusion and unable to give health history Smoking Status: Unknown if ever smoked Past Alcohol Use History: None Reported Additional Past Alcohol Use History / Comment(s): quit smoking and alcohol use late 1969's. previous heavy alcohol use Past Drug Use History: None Reported - Past Family History Father History Unknown: Yes Mother History Unknown: Yes Family Medical History: Unable to Obtain Brother(s) History Unknown: Yes Sister(s) History Unknown: Yes Medications and Allergies Home Medications Medication Instructions Recorded Confirmed Type Acetaminophen Tab [Tylenol] 650 mg PO Q6HR PRN tab 07/15/21 07/30/21 Rx Amiodarone [Cordarone] 200 mg PO DAILY@89907/30/21 07/30/21 History Collagenase [Santyl] 1 applic TOPICAL DAILY PRN 07/30/21 07/30/21 History Collagenase [Santyl] 1 applic TOPICAL HS 07/30/21 07/30/21 History Empagliflozin [Jardiance] 10 mg PO DAILY@89907/30/21 07/30/21 History Metoprolol Tartrate [Lopressor] 75 mg PO BID@0900,209907/30/21 07/30/21 History Pravastatin Sodium [Pravachol] 20 mg PO HS@209907/30/21 07/30/21 History QUEtiapine FUMARATE [SEROquel] 25 mg PO DAILY@0900 07/30/21 07/30/21 History QUEtiapine [SEROquel] 50 mg PO HS@2100 07/30/21 07/30/21 History Rivaroxaban [Xarelto] 20 mg PO HS@2100 07/30/21 07/30/21 History Thiamine [Vitamin B-1] 100 mg PO DAILY@0900 07/30/21 07/30/21 History Allergies Allergy/AdvReac Type Severity Reaction Status Date / Time Penicillins Allergy Unknown Verified 07/30/21 16:26 Childhood Physical Exam Vitals: Vital Signs Temp Pulse Pulse Resp BP BP Pulse Ox 07/31/21 08:11 98.4 F 61 18 100/72 98 07/31/21 06:37 98.4 F 65 18 107/61 98 07/31/21 02:42 18 07/31/21 02:19 98.3 F 60 18 116/66 98 07/30/21 22:48 98.9 F 61 18 107/59 95 07/30/21 14:50 100.0 F H 60 16 101/59 96 Intake and Output 07/30/21 07/31/21 07/31/21 22:59 06:59 14:59 Intake Total 900 Balance 900 Intake: Intake, IV Titration 900 Amount Sodium Chloride 0.9% 1, 900 000 ml @ 75 mls/hr IV . [id number] [facility] Rx#:[id number] Other: Voiding Method Diaper Incontinent # Voids 2 Weight 79.379 kg Results CBC & Chem 7: 07/30/21 15:37 07/30/21 15:37 Labs: Abnormal Lab Results - Last 24 Hours (Table) 07/30/21 07/30/21 07/30/21 Range/Units 15:37 15:37 15:37 RBC 3.82 L (4.30-5.90) m/uL Hgb 11.4 L (13.0-17.5) gm/dL Hct 32.4 L (39.0-53.0) % Lymphocytes # 0.8 L (1.0-4.8) k/uL Sodium 129 L (137-145) mmol/L Potassium 5.5 H (3.5-5.1) mmol/L Carbon Dioxide 18 L (22-30) mmol/L BUN 42 H (9-20) mg/dL Creatinine 1.68 H (0.66-1.25) mg/dL Glucose 132 H (74-99) mg/dL Urine Protein Trace H (Negative) Urine Glucose (UA) 4+ H (Negative) Urine Blood Small H (Negative) Hyaline Casts 4 H (0-2) /lpf Urine Mucus Rare H (None) /hpf Coronavirus (PCR) (Not Detectd) 07/30/21 Range/Units 17:45 RBC (4.30-5.90) m/uL Hgb (13.0-17.5) gm/dL Hct (39.0-53.0) % Lymphocytes # (1.0-4.8) k/uL Sodium (137-145) mmol/L Potassium (3.5-5.1) mmol/L Carbon Dioxide (22-30) mmol/L BUN (9-20) mg/dL Creatinine (0.66-1.25) mg/dL Glucose (74-99) mg/dL Urine Protein (Negative) Urine Glucose (UA) (Negative) Urine Blood (Negative) Hyaline Casts (0-2) /lpf Urine Mucus (None) /hpf Coronavirus (PCR) Detected A (Not Detectd) Thrombosis Risk Factor Assmnt - Choose All That Apply Any of the Below Risk Factors Present?: Yes Each Factor Represents 1 point: Obesity (BMI >25) Other Risk Factors: Yes Each Risk Factor Represents 3 Points: Age 75 years or older Other congenital or acquired thrombophilia - If yes, enter type in comment: No Thrombosis Risk Factor Assessment Total Risk Factor Score: 4 Thrombosis Risk Factor Assessment Level: Moderate Risk
[2021-07-31 20:27] LABS: Glucose,Whole Blood 149 mg/dL (75-99)
[2021-07-31] MEDS ORDERED: RIVAROXABAN 20 MG TAB PO SCH (21:00)
[2021-07-31] MEDS ORDERED: PRAVASTATIN SODIUM 20 MG TAB PO SCH (21:00)
[2021-07-31] MEDS ORDERED: QUEtiapine 50 MG TAB PO SCH (21:00)
[2021-07-31] MEDS: METOPROLOL TARTRATE 25 MG TAB PO SCH (22:07)
[2021-07-31] MEDS: ASCORBIC ACID 500 MG TAB PO SCH (22:11)
[2021-08-01 07:17] LABS: Glucose,Whole Blood 151 mg/dL (75-99)
[2021-08-01] MEDS: dexAMETHasone 2 MG TAB PO SCH (07:51)
[2021-08-01] MEDS: ASCORBIC ACID 500 MG TAB PO SCH (07:51)
[2021-08-01] MEDS: METOPROLOL TARTRATE 25 MG TAB PO SCH (07:51)
[2021-08-01] MEDS ORDERED: QUEtiapine 25 MG TAB PO SCH (09:00)
[2021-08-01] MEDS ORDERED: PATIENT'S OWN (Empagliflozin [Jardiance] 10 MG Tablet) PO SCH (09:00)
[2021-08-01] MEDS ORDERED: THIAMINE 100 MG TAB PO SCH (09:00)
[2021-08-01] MEDS ORDERED: ZINC SULFATE 220 MG CAP PO SCH (09:00)
[2021-08-01] MEDS ORDERED: AMIODARONE 200 MG TAB PO SCH (09:00)
[2021-08-01 10:13] LABS: African American GFR (CKD) 59 (>60 ml/min/1.73 sqM); Anion Gap 8 mmol/L; Blood Urea Nitrogen 44 mg/dL (9-20); Carbon Dioxide 18 mmol/L (22-30); Chloride 108 mmol/L (98-107); Glucose 136 mg/dL (74-99); Non-African American GFR(CKD) 51 (>60 ml/min/1.73 sqM); Sodium 134 mmol/L (137-145)
--- NOTE | 2021-08-01 11:52 | P.DS ---
Providers Date of admission: 07/30/21 19:09 Attending physician: Lauren Rosales Primary care physician: [facility] Hospital Course: Final Diagnosis -Hypovolemic hyponatremia -COVID 19 infection, not hypoxic, no significant infiltrate on xray -Acute renal failure due to intravascular depletion from dehydration -Chronic kidney disease stage 2 -Chronic congestive heart failure, systolic, without acute exacerbation -Ischemic cardiomyopathy current EF 30% status post biventricular AICD -Anion gap metabolic acidosis -History of complete heart block -Advanced dementia -Persistent atrial fibrillation on xarelto Discharge disposition Patient is currently medically for discharge back to [facility]. He was incidentally found to have COVID-19 infection as a low-grade temperature, patient is not hypoxic at this time, he is 90% on room air, afebrile in the last 24 hours. He will be sent on 3 more days of oral decadron Hospital Course This is a pleasant 86-year-old male who was transferred from [facility] after a fall and was found to have COVID-19 pneumonia. He had a low-grade temperature 100 that he was not hypoxic. Patient alert oriented 0-1 which is his baseline is a poor historian. Patient without hypovolemic and hyponatremic creatinine was mildly elevated at 1.68, it did improve with gentle hydration down to 1.26 which appears closer to his baseline. Sodium improved from 129-134. Potassium today is 5 was 5.5 yesterday on admission. Urinalysis was negative for infection. He was treated with oral Decadron and supportive care. Patient can discharge back to [facility] today. Chest x-ray was negative for any acute infiltrate. Had cervical spine CT showed no acute fracture or dislocation evident in the cervical spine, there is no acute nuclear hemorrhage or midline shift. There is moderate to severe diffuse atrophy and chronic small vessel ischemic changes redemonstrated. 08/01/2021 Patient is evaluated today sitting up in a chair, currently denies any cough or shortness of breath. He denies any chest pain, chest pressure. He denies any nausea vomiting or diarrhea. Denies any fever or chills. Okay to be discharged to [facility] today he is medically cleared. Repeat labs in 2-3 days. Please see medication reconciliation for list of current medications. Thank you for allowing us to participate in the care of this patient. Plan - Discharge Summary Discharge Rx Participant: No New Discharge Prescriptions: New dexAMETHasone ORAL [Hexadrol] 6 mg PO DAILY 3 Days #3 tab Zinc Sulfate [Orazinc] 220 mg PO DAILY cap Ascorbic Acid [Vitamin C] 500 mg PO BID tab Continue Acetaminophen Tab [Tylenol] 650 mg PO Q6HR PRN tab PRN Reason: Mild Pain Or Fever > 100.5 Collagenase [Santyl Ointment] 1 applic TOPICAL DAILY PRN PRN Reason: WOUND CARE Collagenase [Santyl Ointment] 1 applic TOPICAL HS Rivaroxaban [Xarelto] 20 mg PO HS@2099 Thiamine [Vitamin B-1] 100 mg PO DAILY@0900 QUEtiapine [SEROquel] 50 mg PO HS@2099 QUEtiapine FUMARATE [SEROquel] 25 mg PO DAILY@899 Pravastatin Sodium [Pravachol] 20 mg PO HS@2099 Empagliflozin [Jardiance] 10 mg PO DAILY@0900 Amiodarone [Cordarone] 200 mg PO DAILY@09 Metoprolol Tartrate [Lopressor] 75 mg PO BID@899,2099 Discharge Medication List Acetaminophen Tab [Tylenol] 650 mg PO Q6HR PRN tab 07/15/21 [Rx] Amiodarone [Cordarone] 200 mg PO DAILY@0907/30/21 [History] Collagenase [Santyl Ointment] 1 applic TOPICAL DAILY PRN 07/30/21 [History] Collagenase [Santyl Ointment] 1 applic TOPICAL HS 07/30/21 [History] Empagliflozin [Jardiance] 10 mg PO DAILY@0907/30/21 [History] Metoprolol Tartrate [Lopressor] 75 mg PO BID@899,209907/30/21 [History] Pravastatin Sodium [Pravachol] 20 mg PO HS@209907/30/21 [History] QUEtiapine FUMARATE [SEROquel] 25 mg PO DAILY@89907/30/21 [History] QUEtiapine [SEROquel] 50 mg PO HS@209907/30/21 [History] Rivaroxaban [Xarelto] 20 mg PO HS@209907/30/21 [History] Thiamine [Vitamin B-1] 100 mg PO DAILY@0900 07/30/21 [History] Ascorbic Acid [Vitamin C] 500 mg PO BID tab 08/01/21 [Rx] Zinc Sulfate [Orazinc] 220 mg PO DAILY cap 08/01/21 [Rx] dexAMETHasone ORAL [Hexadrol] 6 mg PO DAILY 3 Days #3 tab 08/01/21 [Rx] Follow up Appointment(s)/Referral(s): [facility],Clinic [Primary Care Provider] - 1-2 days Ambulatory/Diagnostic Orders: Basic Metabolic Panel [LAB.AMB] Time Frame: 2 Days, Location: None Selected Discharge Disposition: TRANSFER TO SNF/ECF
[2021-08-01 12:08] LABS: Glucose,Whole Blood 153 mg/dL (75-99)
[2021-08-01] MEDS: SODIUM CHLORIDE 0.9% 1,000 ML IV SCH (12:39)
[2021-08-01 16:49] LABS: Glucose,Whole Blood 253 mg/dL (75-99)
[2021-08-01 18:55] VITALS: BP 127/75; PULSE 60; RESP 22; TEMP 97.7
== END 2021-08-01 19:18 | DRG 178 ==
LOC: EC 14:46 → 4SSUR 19:09
PROVIDERS: ADMIT Internal Medicine; ATTEND Internal Medicine
PROC: 3E0333Z Introduction of Anti-inflammatory into Peripheral Vein, Percutaneous Approach (ICD-10-PCS; principal; 2021-07-30)
DX: U07.1 COVID-19 (principal); I50.22 Chronic systolic (congestive) heart failure; E87.1 Hypo-osmolality and hyponatremia; N17.9 Acute kidney failure, unspecified; E87.2 Acidosis; I48.19 Other persistent atrial fibrillation; E11.22 Type 2 diabetes mellitus with diabetic chronic kidney disease; E86.0 Dehydration; E86.1 Hypovolemia; E87.5 Hyperkalemia; F03.90 Unspecified dementia, unspecified severity, without behavioral disturbance, psychotic disturbance, mood disturbance, and anxiety; I25.10 Atherosclerotic heart disease of native coronary artery without angina pectoris; I25.5 Ischemic cardiomyopathy; N18.2 Chronic kidney disease, stage 2 (mild); W19.XXXA Unspecified fall, initial encounter; Z79.01 Long term (current) use of anticoagulants; Z79.84 Long term (current) use of oral hypoglycemic drugs; Z79.899 Other long term (current) drug therapy; Z87.891 Personal history of nicotine dependence; Z95.1 Presence of aortocoronary bypass graft; R79.89 Other specified abnormal findings of blood chemistry; R41.3 Other amnesia; Z95.810 Presence of automatic (implantable) cardiac defibrillator; Z88.0 Allergy status to penicillin
CPT/HCPCS: 36415; 70450; 71046; 72125; 80048; 80053; 81001; 83880; 85025; 87040; 87635; 93005; 99285

== ENCOUNTER 2021-08-03 04:32 | Emergency (ER) | payer MEDICARE ==
--- NOTE | 2021-08-03 04:48 | ED ---
Fall HPI - General Stated Complaint: Fall Time Seen by Provider: 08/03/21 04:38 Source: RN notes reviewed, old records reviewed Mode of arrival: ambulatory Limitations: no limitations - History of Present Illness Initial Comments: This is a 86-year-old male to the ER status post fall patient is a poor story history obtained from patient's chart and EMS. Patient. May had a fall where he hit his head no blood thinners. Patient himself denies any significant complaints. The fall was unwitnessed patient does have history of dementia also has history of diabetes MD Complaint: fall -: minutes(s) Fall From: standing When Fall Occurred: 1-3 hours [employer] Fall Witnessed: yes, by living facility staff Place Fall Occurred: jail[facility]SNF Loss of Consciousness: none Prolonged Down Time?: no Symptoms Prior to Fall: none Location: head Severity: moderate Severity scale (1-10): 4 Context: tripped/slipped Associated Symptoms: denies - Related Data Home Medications Medication Instructions Recorded Confirmed Amiodarone [Cordarone] 200 mg PO DAILY@0900 07/30/21 07/30/21 Collagenase [Santyl Ointment] 1 applic TOPICAL DAILY PRN 07/30/21 07/30/21 Collagenase [Santyl Ointment] 1 applic TOPICAL HS 07/30/21 07/30/21 Empagliflozin [Jardiance] 10 mg PO DAILY@0900 07/30/21 07/30/21 Metoprolol Tartrate [Lopressor] 75 mg PO BID@0900,2100 07/30/21 07/30/21 Pravastatin Sodium [Pravachol] 20 mg PO HS@209907/30/21 07/30/21 QUEtiapine FUMARATE [SEROquel] 25 mg PO DAILY@0900 07/30/21 07/30/21 QUEtiapine [SEROquel] 50 mg PO HS@209907/30/21 07/30/21 Rivaroxaban [Xarelto] 20 mg PO HS@209907/30/21 07/30/21 Thiamine [Vitamin B-1] 100 mg PO DAILY@0900 07/30/21 07/30/21 Previous Rx's Medication Instructions Recorded Acetaminophen Tab [Tylenol] 650 mg PO Q6HR PRN tab 07/15/21 Ascorbic Acid [Vitamin C] 500 mg PO BID tab 08/01/21 Zinc Sulfate [Orazinc] 220 mg PO DAILY cap 08/01/21 dexAMETHasone ORAL [Hexadrol] 6 mg PO DAILY 3 Days #3 tab 08/01/21 Allergies Allergy/AdvReac Type Severity Reaction Status Date / Time Penicillins Allergy Unknown Verified 07/30/21 16:26 Childhood Review of Systems ROS Statement: Those systems with pertinent positive or pertinent negative responses have been documented in the HPI. ROS Other: All systems not noted in ROS Statement are negative. Past Medical History Past Medical History: Dementia, Diabetes Mellitus, Memory Impairment Additional Past Medical History / Comment(s): see Dr Joe Fontenot&P, dementia, fell Aug 2019 and hit his head-sister in law states he was confused but refused to see doctor, urinary leakage History of Any Multi-Drug Resistant Organisms: None Reported Past Surgical History: Unable to Obtain, AICD, Pacemaker Additional Past Surgical History / Comment(s): sister has no further information Past Anesthesia/Blood Transfusion Reactions: Unable to Obtain Additional Past Anesthesia/Blood Transfusion Reaction / Comment(s): sister in law(Marii) not sure of pt or his family Type of Cardiac Device: Permanent Pacemaker, AICD Device Placement Date:: unknown Past Psychological History: Unable to Obtain Additional Psychological History / Comment(s): dementia. sister (Marii) poor historian. states she is power of deputy attorney general and moved them up from [place] to help care for them in past year. She is not sure of pts history/health information. Pt lives in [facility] assisted living with spouse. she states he has memory loss and confusion and unable to give health history Smoking Status: Unknown if ever smoked Past Alcohol Use History: None Reported Additional Past Alcohol Use History / Comment(s): quit smoking and alcohol use late s. previous heavy alcohol use Past Drug Use History: None Reported - Past Family History Father History Unknown: Yes Mother History Unknown: Yes Family Medical History: Unable to Obtain Brother(s) History Unknown: Yes Sister(s) History Unknown: Yes General Exam General appearance: alert, in no apparent distress Head exam: Present: normocephalic, normal inspection. Absent: atraumatic (3 cm laceration to the top of head) Eye exam: Present: normal appearance, PERRL, EOMI. Absent: scleral icterus, conjunctival injection, periorbital swelling ENT exam: Present: normal exam, mucous membranes moist Neck exam: Present: normal inspection. Absent: tenderness, meningismus, lymphadenopathy Respiratory exam: Present: normal lung sounds bilaterally. Absent: respiratory distress, wheezes, rales, rhonchi, stridor Cardiovascular Exam: Present: regular rate, normal rhythm, normal heart sounds. Absent: systolic murmur, diastolic murmur, rubs, gallop, clicks GI/Abdominal exam: Present: soft, normal bowel sounds. Absent: distended, tenderness, guarding, rebound, rigid Extremities exam: Present: normal inspection, full ROM, normal capillary refill. Absent: tenderness, pedal edema, joint swelling, calf tenderness Back exam: Present: normal inspection Neurological exam: Present: alert, oriented X3, CN II-XII intact Psychiatric exam: Present: normal affect, normal mood Skin exam: Present: warm, dry, intact, normal color. Absent: rash Course Vital Signs 08/03/21 08/03/21 05:11 08:30 Temperature 97.5 F L Pulse Rate 118 H 64 Respiratory 20 18 Rate Blood Pressure 95/72 111/67 O2 Sat by Pulse 97 99 Oximetry - Reevaluation(s) Reevaluation #1: 08/03/21 06:17 Record is reviewed Reevaluation #2: 08/03/21 06:17 Blood pressure is marginal patient will get IV fluid resuscitation Patient has known coronavirus history for 2 days Procedures - Laceration Laceration #1 Consent Obtained: verbal consent Indication: laceration Site: scalp Size (cm): 3 Description: linear Depth: simple, single layer Size of Sutures: other (Leopoldo) Technique: simple, interrupted Medical Decision Making - Medical Decision Making 86 male to the emergency department with dehydration and fall. Patient did have scalp laceration. Patient is given IV resuscitation and repaired here in the emergency department. Patient otherwise feels well and can be discharged home - Lab Data Result diagrams: 08/03/21 06:21 08/03/21 06:21 Lab Results 08/03/21 08/03/21 08/03/21 Range/Units 06:21 06:21 06:21 WBC 15.3 H (3.8-10.6) k/uL RBC 4.47 (4.30-5.90) m/uL Hgb 12.8 L (13.0-17.5) gm/dL Hct 38.6 L (39.0-53.0) % MCV 86.4 (80.0-100.0) fL MCH 28.8 (25.0-35.0) pg MCHC 33.3 (31.0-37.0) g/dL RDW 13.6 (11.5-15.5) % Plt Count 182 (150-450) k/uL MPV 8.1 Neutrophils % 90 % Lymphocytes % 3 % Monocytes % 5 % Eosinophils % 1 % Basophils % 0 % Neutrophils # 13.9 H (1.3-7.7) k/uL Lymphocytes # 0.5 L (1.0-4.8) k/uL Monocytes # 0.8 (0-1.0) k/uL Eosinophils # 0.1 (0-0.7) k/uL Basophils # 0.0 (0-0.2) k/uL PT 13.5 H (9.0-12.0) sec INR 1.3 H (<1.2) APTT 36.2 H (22.0-30.0) sec Sodium 134 L (137-145) mmol/L Potassium 4.9 (3.5-5.1) mmol/L Chloride 103 (98-107) mmol/L Carbon Dioxide 22 (22-30) mmol/L Anion Gap 9 mmol/L BUN 49 H (9-20) mg/dL Creatinine 1.33 H (0.66-1.25) mg/dL Est GFR (CKD-EPI)AfAm 56 (>60 ml/min/1.73 sqM) Est GFR (CKD-EPI)NonAf 48 (>60 ml/min/1.73 sqM) Glucose 198 H (74-99) mg/dL Plasma Lactic Acid Edgar (0.7-2.0) mmol/L Calcium 9.7 (8.4-10.2) mg/dL Magnesium 2.0 (1.6-2.3) mg/dL Total Bilirubin 0.9 (0.2-1.3) mg/dL AST 32 (17-59) U/L ALT 21 (4-49) U/L Alkaline Phosphatase 64 (38-126) U/L Lactate Dehydrogenase 555 (313-618) U/L C-Reactive Protein 0.7 (<1.0) mg/dL Total Protein 7.5 (6.3-8.2) g/dL Albumin 4.2 (3.5-5.0) g/dL Procalcitonin (0.02-0.09) ng/mL 08/03/21 08/03/21 Range/Units 06:21 06:21 WBC (3.8-10.6) k/uL RBC (4.30-5.90) m/uL Hgb (13.0-17.5) gm/dL Hct (39.0-53.0) % MCV (80.0-100.0) fL MCH (25.0-35.0) pg MCHC (31.0-37.0) g/dL RDW (11.5-15.5) % Plt Count (150-450) k/uL MPV Neutrophils % % Lymphocytes % % Monocytes % % Eosinophils % % Basophils % % Neutrophils # (1.3-7.7) k/uL Lymphocytes # (1.0-4.8) k/uL Monocytes # (0-1.0) k/uL Eosinophils # (0-0.7) k/uL Basophils # (0-0.2) k/uL PT (9.0-12.0) sec INR (<1.2) APTT (22.0-30.0) sec Sodium (137-145) mmol/L Potassium (3.5-5.1) mmol/L Chloride (98-107) mmol/L Carbon Dioxide (22-30) mmol/L Anion Gap mmol/L BUN (9-20) mg/dL Creatinine (0.66-1.25) mg/dL Est GFR (CKD-EPI)AfAm (>60 ml/min/1.73 sqM) Est GFR (CKD-EPI)NonAf (>60 ml/min/1.73 sqM) Glucose (74-99) mg/dL Plasma Lactic Acid Edgar 1.9 (0.7-2.0) mmol/L Calcium (8.4-10.2) mg/dL Magnesium (1.6-2.3) mg/dL Total Bilirubin (0.2-1.3) mg/dL AST (17-59) U/L ALT (4-49) U/L Alkaline Phosphatase (38-126) U/L Lactate Dehydrogenase (313-618) U/L C-Reactive Protein (<1.0) mg/dL Total Protein (6.3-8.2) g/dL Albumin (3.5-5.0) g/dL Procalcitonin 0.05 (0.02-0.09) ng/mL - Radiology Data Radiology results: report reviewed (CT brain C-spine chest x-ray are negative for acute disease), image reviewed Disposition Clinical Impression: Fall, Delirium due to general medical condition, Altered mental status, Dehydration, Laceration of scalp Disposition: HOME SELF-CARE Condition: Good Instructions (If sedation given, give patient instructions): Fall Prevention for Older Adults (ED) Is patient prescribed a controlled substance at d/c from ED?: No Referrals: [facility],Clinic [Primary Care Provider] - 1-2 days
--- NOTE | 2021-08-03 05:08 | CT ---
EXAMINATION TYPE: CT brain [facility] DATE OF EXAM: 08/03/2021 COMPARISON: 07/30/2021 HISTORY: fall CT DLP: 1276.2 mGycm Automated exposure control for dose reduction was used. Images of the brain and cervical spine obtained without contrast. There is cerebral cortical atrophy. There is white matter hypodensity around the lateral ventricles a nd extending into the insula of the left temporal lobe. There is no midline shift. There is no sign o f intracranial hemorrhage. Calvarium is intact. There is some straightening of the cervical spine. There is moderate narrowing at levels from C4 to T 1 with spurring of the endplates. There is subluxation mild deformity at C3-4. Prevertebral soft tiss ues are intact. There is calcification and thickening of the posterior longitudinal ligament at C4-5 and C5-6 with [place] spinal stenosis. 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 No fracture. No change. Cerebral atrophy and chronic small vessel ischemia. No acute intracranial abnormality. No change.
--- NOTE | 2021-08-03 05:10 | XR ---
EXAMINATION TYPE: XR pelvis AP view DATE OF EXAM: 08/03/2021 COMPARISON: NONE HISTORY: Fall. Pain TECHNIQUE: Single view FINDINGS: Pelvic ring appears intact. Proximal femurs are intact. Hip joint spaces are fairly normal. There is vascular calcification. Sacroiliac joints are intact. IMPRESSION: No acute abnormality of the pelvis. No fracture seen.
--- NOTE | 2021-08-03 05:11 | XR ---
EXAMINATION TYPE: XR chest 1V DATE OF EXAM: 08/03/2021 COMPARISON: 07/30/2021 HISTORY: Pain. Fall. TECHNIQUE: FINDINGS: Heart is enlarged. There is no heart failure. There is left axillary pacemaker. There are s ternal wires. Costophrenic angles are clear. The bony thorax is intact. IMPRESSION: Cardiomegaly. No active cardiopulmonary disease.
[2021-08-03 05:21] VITALS: TEMP 97.5
[2021-08-03] MEDS ORDERED: ACETAMINOPHEN TAB 500 MG TAB PO STA (06:11)
[2021-08-03] MEDS ORDERED: KETOROLAC 30 MG/ML 1 ML VIAL IVP STA (06:11)
[2021-08-03] MEDS ORDERED: SODIUM CHLORIDE 0.9% 1,000 ML IV STA (06:11)
[2021-08-03] MEDS ORDERED: ALBUTEROL HFA INHALER INHALATION STA (06:11)
[2021-08-03] MEDS ORDERED: DEXAMETHASONE SOD PHOSPHATE 10 MG/ML 1 ML VIAL IVP STA (06:11)
[2021-08-03 06:56] LABS: Basophils % (A) 0 %; Eosinophils # (A) 0.1 k/uL (0-0.7); Eosinophils % (A) 1 %; HCT 38.6 % (39.0-53.0); HGB 12.8 gm/dL (13.0-17.5); Lymphocytes # (A) 0.5 k/uL (1.0-4.8); Lymphocytes % (A) 3 %; MCH 28.8 pg (25.0-35.0); MCHC 33.3 g/dL (31.0-37.0); MCV 86.4 fL (80.0-100.0); Mean Platelet Volume 8.1; Monocytes # (A) 0.8 k/uL (0-1.0); Monocytes % (A) 5 %; Neutrophils # (A) 13.9 k/uL (1.3-7.7); Neutrophils % (A) 90 %; Platelet Count 182 k/uL (150-450); RBC 4.47 m/uL (4.30-5.90); RDW 13.6 % (11.5-15.5); WBC 15.3 k/uL (3.8-10.6)
[2021-08-03 07:12] LABS: INR 1.3 (<1.2); Partial Thromboplastin Time 36.2 sec (22.0-30.0); Prothrombin Time 13.5 sec (9.0-12.0)
[2021-08-03 07:15] LABS: Albumin 4.2 g/dL (3.5-5.0); C Reactive Protein 0.7 mg/dL (<1.0); Calcium 9.7 mg/dL (8.4-10.2); Potassium 4.9 mmol/L (3.5-5.1); Total Bilirubin 0.9 mg/dL (0.2-1.3); Total Protein 7.5 g/dL (6.3-8.2)
[2021-08-03 08:33] VITALS: BP 111/67; PULSE 64; RESP 18
== END 2021-08-03 08:58 | disposition home or self-care (01) ==
LOC: EC 04:32
DX: R41.82 Altered mental status, unspecified (principal); F05 Delirium due to known physiological condition; E11.9 Type 2 diabetes mellitus without complications; Z88.0 Allergy status to penicillin; Z95.0 Presence of cardiac pacemaker
CPT/HCPCS: 99285; 96374; 96375; 96361; 12002; 36415; 94640; 80053; 83605; 83615; 83735; 85025; 85610; 85730; 86140; 84145; 72170; 71045; 72125; 70450; J1100; J1885; 93005